=== PATIENT | male | born 1935 | race Caucasian/White ===

== ENCOUNTER 2017-12-19 20:04 | Inpatient (IN) | payer OTHER, MEDICAID ==
[~2017-12-19 20:04] MED LIST: DILTIAZEM 125 MG in D5W 125 ML IV SCH; INSULIN REGULAR HUMAN 100 UNIT in NS 100 ML IV SCH
[2017-12-19] MEDS ORDERED: NS 1,000 ML IV ONE ×5 (20:15→22:30)
--- NOTE | 2017-12-19 20:15 | EDPHY ---
H & P Time Seen by Provider: 12/19/17 20:14 HPI/ROS: Chief complaint. Altered mental status HPI. 82-year-old male here emergent by EMS. He was last seen normal 24 hr ago. Welfare check found the patient to be barely arousable in his apartment in assisted living. Monitor showed atrial fibrillation per EMS. When they checked his blood sugar there monitor showed it was greater than 400. There is a report that there was no medicine bottles around. Apparently there is no history of diabetes. Patient is not able to give any further history. ROS--unable as the patient is nonverbal Past Medical/Surgical History: Unknown Social History: Unknown though EMS report is the patient lives by himself in assisted living Smoking Status: Unknown if ever smoked Physical Exam: General Appearance: Arousable as the patient opens his eyes to verbal stimuli. Patient's initial temp is 34.7 degrees. Heart rate 103 Eyes: Pupils equal and round no pallor or injection. ENT, mucous membranes are dry Respiratory: There are no retractions, lungs are clear to auscultation. Cardiovascular: Irregularly irregular rate and rhythm Gastrointestinal: Abdomen is soft and nontender, no masses, bowel sounds normal. Neurological: Opens eyes to verbal stimuli. Appears to move all 4 extremities Skin: Skin is mottled Musculoskeletal: Neck is supple nontender. Extremities symmetrical, full range of motion. Psychiatric: Arousable Constitutional: Initial Vital Signs Temperature (C) 34.7 C L 12/19/17 20:09 Heart Rate 103 H 12/19/17 20:09 Respiratory Rate 33 H 12/19/17 20:09 Blood Pressure 156/80 H 12/19/17 20:09 O2 Sat (%) 96 12/19/17 20:09 O2 Delivery Mode Nasal Cannula O2 (L/minute) 4 Allergies/Adverse Reactions: Unable to Assess Allergy (Unverified 12/19/17 20:11) Home Medications: Medication Instructions Recorded Meclizine HCl 12/19/17 Zofran 12/19/17 Medical Decision Making - Diagnostics EKG Interpretation: EKG interpreted by me shows atrial fibrillation left axis deviation QRS appears normal. No obvious ST elevation or depression. Ventricular response is 121 Imaging Results: Imaging Impressions Chest X-Ray 12/19/17 20:15 Impression: No acute findings in the chest. Head CT 12/19/17 20:20 Impression: 1. No acute intracranial findings. 2. Diffuse cerebral atrophy with periventricular and subcortical low attenuation consistent with chronic microvascular ischemic gliosis. 3. Probable 2.5 cm arachnoid cyst over the vertex. Findings discussed with Davin Mendoza MD on December 19, 2017 at 2131 hours. Chest x-ray reviewed by me and interpreted by me shows no evidence for pneumonia Noncontrast head CT reviewed by me and discussed with Dr. Martin is nonacute Procedures: IV normal saline. 2nd IV is started is given 2 L of normal saline. I-STAT shows blood sugar greater than 700 Sepsis workup is performed Patient is given 4 L of saline in the department. Insulin drip. ED Course/Re-evaluation: Severe sepsis declared at about 8:50 p.m. Bear Hugger blanket to warm the patient back to normothermia 10:15 p.m. Patient has now rapid AFib in the range of 140-150. Diltiazem bolus and drip. I consulted and discussed case with Dr. Kwon, hospitalist, who agrees to the admission Differential Diagnosis: It appears the patient is in nonketotic hyperosmolar coma. However the patient is acidotic however I suspect that this is more from for circulation as well as this is the explanation for the elevated lactate. Concurrently there is no obvious evidence for infection in terms of pneumonia or urinary tract infection. Cultures are pending. No antibiotics were given because again at this point no source of infection. Patient has atrial fibrillation with rapid ventricular rate requiring Diltiazem for management. Patient's very hyperglycemic as well as having elevated oz mole allergy. We this requires treatment with IV insulin and IV fluids. Critical Care Time: Critical care time exclusive procedures 1 hr - Data Points Laboratory Results: Laboratory Results 12/19/17 20:12 12/19/17 20:12 12/19/17 12/19/17 12/19/17 20:25 20:12 20:12 WBC RBC Hgb POC Hgb Hct POC Hct MCV MCH MCHC RDW Plt Count MPV Neut % (Auto) Lymph % (Auto) [place] % (Auto) Eos % (Auto) Baso % (Auto) Nucleat RBC Rel Count Absolute Neuts (auto) Absolute Lymphs (auto) Absolute Monos (auto) Absolute Eos (auto) Absolute Basos (auto) Absolute Nucleated RBC Immature Gran % Immature Gran # PT INR APTT VBG pH 7.14 L* (7.31-7.42) VBG Lactic Acid 6.4 mmol/L H mmol/L (0.7-2.1) POC Sodium Sodium 152 mEq/L H mEq/L (135-145) POC Potassium Potassium 6.1 mEq/L H mEq/L (3.5-5.2) POC Chloride Chloride 102 mEq/L mEq/L (97-110) Carbon Dioxide 9 mEq/l L* mEq/l (22-31) Anion Gap 41 mEq/L H mEq/L (8-16) POC BUN BUN 101 mg/dL H* mg/dL (7-23) Creatinine 3.6 mg/dL H mg/dL (0.7-1.3) POC Creatinine Estimated GFR 16 Glucose 1023 mg/dL H* mg/dL (70-100) POC Glucose Serum Osmolality 429 mosmo/kg H mosmo/kg (280-297) Calcium 10.2 mg/dL mg/dL (8.5-10.4) Phosphorus 11.7 mg/dL H mg/dL (2.5-4.5) Magnesium 3.9 mg/dL H mg/dL (1.6-2.3) Total Bilirubin 1.4 mg/dL mg/dL (0.1-1.4) Troponin I 0.023 ng/mL ng/mL (0.000-0.034) Beta-Hydroxybutyrate 9.35 mmol/L H mmol/L (0.02-0.27) Urine Color YELLOW Urine Appearance CLEAR Urine pH 5.0 (5.0-7.5) Ur Specific [place] 1.021 (1.002-1.030) Urine Protein 1+ H (NEGATIVE) Urine Ketones TRACE H (NEGATIVE) Urine Blood 3+ H (NEGATIVE) Urine Nitrate NEGATIVE (NEGATIVE) Urine Bilirubin NEGATIVE (NEGATIVE) Urine Urobilinogen NEGATIVE EU EU (0.2-1.0) Ur Leukocyte Esterase NEGATIVE (NEGATIVE) Urine RBC 1-3 /hpf /hpf (0-3) Urine WBC 3-5 /hpf H /hpf (0-3) Ur Epithelial Cells TRACE /lpf /lpf (NONE-1+) Hyaline Casts 1-5 /lpf /lpf (0-1) Urine Mucus TRACE /lpf /lpf (NONE-1+) Urine Glucose 3+ H (NEGATIVE) 02/25/18 02/25/18 02/25/18 20:12 20:12 20:03 WBC 14.63 10^3/uL H 10^3/uL (3.80-9.50) RBC 6.30 10^6/uL 10^6/uL (4.40-6.38) Hgb 20.8 g/dL H* g/dL (13.7-17.5) POC Hgb 20.7 gm/dL H* gm/dL (13.7-17.5) Hct 62.4 % H* % (40.0-51.0) POC Hct 61 % H* % (40-51) MCV 99.0 fL fL (81.5-99.8) MCH 33.0 pg pg (27.9-34.1) MCHC 33.3 g/dL g/dL (32.4-36.7) RDW 14.0 % % (11.5-15.2) Plt Count 264 10^3/uL 10^3/uL (150-400) MPV 12.4 fL H fL (8.7-11.7) Neut % (Auto) 81.5 % H % (39.3-74.2) Lymph % (Auto) 6.8 % L % (15.0-45.0) [place] % (Auto) 10.7 % % (4.5-13.0) Eos % (Auto) 0.0 % L % (0.6-7.6) Baso % (Auto) 0.2 % L % (0.3-1.7) Nucleat RBC Rel Count 0.0 % % (0.0-0.2) Absolute Neuts (auto) 11.92 10^3/uL H 10^3/uL (1.70-6.50) Absolute Lymphs (auto) 1.00 10^3/uL 10^3/uL (1.00-3.00) Absolute Monos (auto) 1.56 10^3/uL H 10^3/uL (0.30-0.80) Absolute Eos (auto) 0.00 10^3/uL L 10^3/uL (0.03-0.40) Absolute Basos (auto) 0.03 10^3/uL 10^3/uL (0.02-0.10) Absolute Nucleated RBC 0.00 10^3/uL 10^3/uL (0-0.01) Immature Gran % 0.8 % % (0.0-1.1) Immature Gran # 0.12 10^3/uL H 10^3/uL (0.00-0.10) PT 14.8 SEC SEC (12.0-15.0) INR 1.14 (0.83-1.16) APTT 31.9 SEC SEC (23.0-38.0) VBG pH VBG Lactic Acid POC Sodium 150 mEq/L H mEq/L (135-145) Sodium POC Potassium 5.6 mEq/L H mEq/L (3.3-5.0) Potassium POC Chloride 114 mEq/L H mEq/L (97-110) Chloride Carbon Dioxide Anion Gap POC BUN 93 mg/dL H mg/dL (7-23) BUN Creatinine POC Creatinine 3.4 mg/dL H mg/dL (0.7-1.3) Estimated GFR Glucose POC Glucose > 700 mg/dL H* mg/dL (70-100) Serum Osmolality Calcium Phosphorus Magnesium Total Bilirubin Troponin I Beta-Hydroxybutyrate Urine Color Urine Appearance Urine pH Ur Specific [place] Urine Protein Urine Ketones Urine Blood Urine Nitrate Urine Bilirubin Urine Urobilinogen Ur Leukocyte Esterase Urine RBC Urine WBC Ur Epithelial Cells Hyaline Casts Urine Mucus Urine Glucose Medications Given: Insulin Human Regular 100 unit / Miscellaneous Medication 1 ea/ Sodium Chloride 101 mls @ 6 mls/hr IV EDNOW ONE Stop: 12/20/17 13:44 Last Admin: 12/19/17 21:11 Dose: 101 mls Sodium Chloride (Ns) 1,600 mls @ 266.6666 mls/hr 30 ml/kg infuse over 6 hr ( 1600 ml) IV EDNOW ONE PRN Reason: Protocol Stop: 12/20/17 02:54 Last Admin: 12/19/17 22:06 Dose: 1,600 mls Discontinued Medications Sodium Chloride (Ns) 1,000 mls @ 0 mls/hr IV EDNOW ONE; Wide Open PRN Reason: Protocol Stop: 12/19/17 20:16 Last Admin: 12/19/17 20:00 Dose: 1,000 mls Sodium Chloride (Ns) 1,000 mls @ 0 mls/hr IV ONCE ONE; Wide Open PRN Reason: Protocol Stop: 12/19/17 20:16 Last Admin: 12/19/17 20:28 Dose: 1,000 mls Sodium Chloride (Ns) 1,000 mls @ 0 mls/hr IV ONCE ONE PRN Reason: Wide Open Stop: 12/19/17 22:07 Last Admin: 12/19/17 22:06 Dose: 1,000 mls Lorazepam (Ativan Injection) 1 mg IVP EDNOW ONE Stop: 12/19/17 20:58 Last Admin: 12/19/17 21:08 Dose: 1 mg Point of Care Test Results: 12/19/17 20:03 POC Sodium 150 H POC Potassium 5.6 H POC Chloride 114 H POC BUN 93 H POC Creatinine 3.4 H POC Glucose > 700 H* Departure - Departure Disposition: [facility] [place] [facility] Acute Clinical Impression: Non-ketotic hyperosmolar coma Hypothermia Qualifiers: Encounter type: initial encounter Qualified Code(s): T68.XXXA - Hypothermia, initial encounter Atrial fibrillation Qualifiers: Atrial fibrillation type: unspecified Qualified Code(s): I48.91 - Unspecified atrial fibrillation Condition: Critical
--- NOTE | 2017-12-19 20:23 | CPEKG ---
Heart Rate: 121 RR Interval: 496 QRSD Interval: 106 QT Interval: 384 QTC Interval: 545 QRS [place]: 1 T Wave [place]: 60 EKG Severity - ABNORMAL ECG - EKG Impression: ATRIAL FIBRILLATION EKG Impression: MULTIFORM VENTRICULAR PREMATURE COMPLEXES EKG Impression: PROBABLE INFERIOR INFARCT, OLD EKG Impression: PROLONGED QT INTERVAL Electronically Signed By: Davin Mendoza 19-Dec-2017 23:28:48
[2017-12-19 20:25] LABS: PLATELET COUNT 264 10^3/uL (150-400)
[2017-12-19 20:35] LABS: INR 1.14 (0.83-1.16); PROTIME(PATIENT) 14.8 SEC (12.0-15.0)
[2017-12-19] MEDS ORDERED: INSULIN REGULAR HUMAN 100 UNIT, COSIGN. REQUIRED 1 EA in NS 100 ML IV ONE (20:55)
[2017-12-19] MEDS ORDERED: NS 1,600 ML IV ONE (20:55)
[2017-12-19] MEDS ORDERED: LORazepam 2 MG/ML INJ IVP ONE (20:57)
[2017-12-19] MEDS ORDERED: LORazepam 2 MG/ML INJ ONE (20:58)
[2017-12-19] MEDS ORDERED: DILTIAZEM 125 MG in D5W 125 ML IV ONE (22:17)
[2017-12-19] MEDS ORDERED: DILTIAZEM HCL/D5W 125 ML IV ONE (22:30)
--- NOTE | 2017-12-19 22:40 | CPEKG ---
Heart Rate: 116 RR Interval: 517 P-R Interval: 156 QRSD Interval: 76 QT Interval: 344 QTC Interval: 478 P [place]: -2 QRS [place]: -30 T Wave [place]: 38 EKG Severity - ABNORMAL ECG - EKG Impression: SINUS TACHYCARDIA EKG Impression: MULTIFORM VENTRICULAR PREMATURE COMPLEXES EKG Impression: PROBABLE INFERIOR INFARCT, OLD Electronically Signed By: Davin Mendoza 19-Dec-2017 23:28:42
[2017-12-19] MEDS ORDERED: ONDANSETRON 4 MG/2 ML VIAL IVP PRN (23:10)
[2017-12-19] MEDS ORDERED: D5W 1,000 ML IV SCH (23:15)
[2017-12-19] MEDS ORDERED: NS 1,000 ML IV SCH (23:15)
[2017-12-19] MEDS ORDERED: 1/2 NS 1,000 ML IV SCH (23:30)
--- NOTE | 2017-12-19 23:56 | PDGENHP ---
History and Physical - Chief Complaint altered mental status - History of Present Illness Source-patient currently encephalopathic and nonverbal. EMR was reviewed and case discussed with accepting provider. Patient resides at [facility] and no records accompany the patient. Calls to facility placed but no records available to be faxed either as patient is on [facility] facility side. . HPI - 82-year-old gentleman with unknown past medical history who presents emergency department from his independent [facility] apartment at [facility] after welfare check was called. Apparently patient had not been seen in 24 hr last being approximately dinnertime. Patient was found in his apartment confused. Per report no emptied or prescription bottles were in the home. Initial blood glucose on scene was greater than measurable on Accu-Chek. In the emergency department patient's glucose was found to be greater than 1000. He was given greater than 4 L of normal saline bolus. Patient has remained confused and agitated. History Information - Allergies/Home Medication List Allergies/Adverse Reactions: Unable to Assess Allergy (Unverified 12/19/17 20:11) Home Medications: Meclizine HCl 12/19/17 [Last Taken Unknown] Zofran 12/19/17 [Last Taken Unknown] I have personally reviewed and updated: social history Past Medical History: Unable to obtain secondary to patient's altered mental status. Attempts to call contacts - Surgical History Additional surgical history: Unable to obtain secondary to patient's mental status. No reports available from [facility]. - Family History Additional family history: Unable to obtain as noted above. - Social History Smoking Status: Unknown if ever smoked Additional social history: Unable to obtain as noted above. Patient without any available advance directives as it is not required at [facility]. Patient will be full code until this can be clarified. Patient's available contacts are all . Review of Systems Review of Systems: Unable to obtain as for reasons noted above. Physical Exam Physical Exam: Selected Entries 12/19/17 21:37 Blood Pressure Automatic Method Heart Rate 102 H Respiratory 32 H Rate O2 Sat (%) 94 Blood Pressure 113/68 Mean Arterial 83 Pressure (MAP) O2 Delivery Room Air Mode Temp Pulse Resp BP Pulse Ox 35.8 C L 113 H 32 H 139/66 H 93 12/19/17 22:58 12/19/17 22:58 12/19/17 22:58 12/19/17 22:58 12/19/17 22:58 O2 (L/minute) 4 Constitutional: no apparent distress, chronically ill appearing, cachectic, other (Patient lays in bed awake but unresponsive. Moans intermittently. Nonverbal. Chronically ill, thin cachectic, disheveled.), No appears nourished Eyes: PERRL Ears, Nose, Mouth, Throat: no oral mucosal ulcers, dry mucous membranes, other ( Edentulous) Cardiovascular: systolic murmur, pulses symmetric bilaterally, tachycardia ( Regular rhythm with occasional extra beat.), No edema Peripheral Pulses: 2+: dorsalis-pedis (R), dorsalis-pedis (L) Respiratory: no respiratory distress, no rales or rhonchi, clear to auscultation , reduced air movement (Decreased inspiratory effort. Patient unable to follow commands.), No expiratory wheeze, No respiratory distress Gastrointestinal: normoactive bowel sounds, soft, non-tender abdomen, no palpable masses, No tenderness (No apparent tenderness to palpation with exam.) , No guarding, No distension Genitourinary: patel in urethra (Clear yellow urine) Skin: warm, normal color, No no rashes or abrasions, No pressure ulcer, No rash Musculoskeletal: other (Patient moves all extremities while lying in bed. Strength 5/5 in his extremities. Patient unable to follow commands for testing. ) Neurologic: other ( limited exam 2/2 confusion and inability to follow commands) , No AAOx3, No weakness, No facial droop Psychiatric: encephalopathic, agitated (Patient resisting nursing staff assistance. Nonverbal.), No interacting appropriately Lymph, Heme, Immunologic: No petechiae Lab Data & Imaging Review 12/19/17 20:12 12/19/17 22:00 WBC 14.63 10^3/uL (3.80-9.50) H 12/19/17 20:12 RBC 6.30 10^6/uL (4.40-6.38) 12/19/17 20:12 Hgb 20.8 g/dL (13.7-17.5) H* 12/19/17 20:12 POC Hgb 17.0 gm/dL (13.7-17.5) 12/19/17 21:54 Hct 62.4 % (40.0-51.0) H* 12/19/17 20:12 POC Hct 50 % (40-51) 12/19/17 21:54 MCV 99.0 fL (81.5-99.8) 12/19/17 20:12 MCH 33.0 pg (27.9-34.1) 12/19/17 20:12 MCHC 33.3 g/dL (32.4-36.7) 12/19/17 20:12 RDW 14.0 % (11.5-15.2) 12/19/17 20:12 Plt Count 264 10^3/uL (150-400) 12/19/17 20:12 MPV 12.4 fL (8.7-11.7) H 12/19/17 20:12 Neut % (Auto) 81.5 % (39.3-74.2) H 12/19/17 20:12 Lymph % (Auto) 6.8 % (15.0-45.0) L 12/19/17 20:12 [place] % (Auto) 10.7 % (4.5-13.0) 12/19/17 20: Eos % (Auto) 0.0 % (0.6-7.6) L 12/19/17 20: Baso % (Auto) 0.2 % (0.3-1.7) L 12/19/17 20:12 Nucleat RBC Rel Count 0.0 % (0.0-0.2) 12/19/17 20:12 Absolute Neuts (auto) 11.92 10^3/uL (1.70-6.50) H 12/19/17 20:12 Absolute Lymphs (auto) 1.00 10^3/uL (1.00-3.00) 12/19/17 20:12 Absolute Monos (auto) 1.56 10^3/uL (0.30-0.80) H 12/19/17 20:12 Absolute Eos (auto) 0.00 10^3/uL (0.03-0.40) L 12/19/17 20:12 Absolute Basos (auto) 0.03 10^3/uL (0.02-0.10) 12/19/17 20: Absolute Nucleated RBC 0.00 10^3/uL (0-0.01) 02/25/18 20:12 Immature Gran % 0.8 % (0.0-1.1) 12/19/17 20:12 Immature Gran # 0.12 10^3/uL (0.00-0.10) H 12/19/17 20:12 PT 14.8 SEC (12.0-15.0) 12/19/17 20:12 INR 1.14 (0.83-1.16) 12/19/17 20:12 APTT 31.9 SEC (23.0-38.0) 12/19/17 20:12 VBG pH 7.14 (7.31-7.42) L* 12/19/17 20:12 VBG Lactic Acid 4.4 mmol/L (0.7-2.1) H 12/19/17 21:19 POC Sodium 153 mEq/L (135-145) H 12/19/17 21:54 Sodium 155 mEq/L (135-145) H 12/19/17 22:00 POC Potassium 5.3 mEq/L (3.3-5.0) H 12/19/17 21:54 Potassium 5.4 mEq/L (3.5-5.2) H 12/19/17 22:00 POC Chloride 117 mEq/L (97-110) H 12/19/17 21:54 Chloride 113 mEq/L (97-110) H D 12/19/17 22:00 Carbon Dioxide 12 mEq/l (22-31) L 12/19/17 22:00 Anion Gap 30 mEq/L (8-16) H 12/19/17 22:00 POC BUN 98 mg/dL (7-23) H 12/19/17 21:54 BUN 100 mg/dL (7-23) H 12/19/17 22:00 Creatinine 3.3 mg/dL (0.7-1.3) H 12/19/17 22:00 POC Creatinine 3.1 mg/dL (0.7-1.3) H 12/19/17 21:54 Estimated GFR 18 12/19/17 22:00 Glucose 859 mg/dL (70-100) H* 12/19/17 22:00 POC Glucose > 700 mg/dL (70-100) H* 12/19/17 21:54 Serum Osmolality 429 mosmo/kg (280-297) H 12/19/17 20:12 Calcium 8.3 mg/dL (8.5-10.4) L D 12/19/17 22:00 Phosphorus 11.7 mg/dL (2.5-4.5) H 12/19/17 20:12 Magnesium 3.9 mg/dL (1.6-2.3) H 12/19/17 20:12 Total Bilirubin 1.0 mg/dL (0.1-1.4) 12/19/17 22:00 Conjugated Bilirubin 0.9 mg/dL (0.0-0.5) H 12/19/17 22:00 Unconjugated Bilirubin 0.1 mg/dL (0.0-1.1) 12/19/17 22:00 AST 29 IU/L (17-59) 12/19/17 22:00 ALT 22 IU/L (21-72) 12/19/17 22:00 Alkaline Phosphatase 93 IU/L (38-126) 12/19/17 22:00 Troponin I 0.023 ng/mL (0.000-0.034) 12/19/17 20:12 Total Protein 6.7 g/dL (6.3-8.2) 12/19/17 22:00 Albumin 4.1 g/dL (3.5-5.0) 12/19/17 22:00 Beta-Hydroxybutyrate 9.35 mmol/L (0.02-0.27) H 12/19/17 20:12 Urine Color YELLOW 12/19/17 20:25 Urine Appearance CLEAR 12/19/17 20:25 Urine pH 5.0 (5.0-7.5) 12/19/17:25 Ur Specific [place] 1.021 (1.002-1.030) 12/19/17 20:25 Urine Protein 1+ (NEGATIVE) H 12/19/17 20:25 Urine Ketones TRACE (NEGATIVE) H 12/19/17 20: Urine Blood 3+ (NEGATIVE) H 12/19/17 20:25 Urine Nitrate NEGATIVE (NEGATIVE) 12/19/17 20: Urine Bilirubin NEGATIVE (NEGATIVE) 12/19/17 20: Urine Urobilinogen NEGATIVE EU (0.2-1.0) 12/19/17 20:25 Ur Leukocyte Esterase NEGATIVE (NEGATIVE) 12/19/17 20:25 Urine RBC 1-3 /hpf (0-3) 12/19/17 20:25 Urine WBC 3-5 /hpf (0-3) H 12/19/17 20:25 Ur Epithelial Cells TRACE /lpf (NONE-1+) 12/19/17 20:25 Hyaline Casts 1-5 /lpf (0-1) 12/19/17 20:25 Urine Mucus TRACE /lpf (NONE-1+) 12/19/17 20:25 Urine Glucose 3+ (NEGATIVE) H 12/19/17 20:25 Imaging Review: Portable Chest at 8 hours History: Chest Pain. Altered mental status. Comparison: None available. Findings: Lung volumes are low without focal consolidation, pneumothorax, or pleural effusion. Heart size is normal. Degenerative change is present in the spine and shoulders. Impression: No acute findings in the chest. CT Head Without Contrast History: AMS. Hyperglycemia. Comparison: None available. Technique: Axial unenhanced images were obtained from the vertex through the skull base. Dose reduction techniques were utilized. Findings: Focal CSF prominence just to the left of the falx in the vertex, measuring 2.5 x 1.5 cm ( series 9 image 101) could represent an arachnoid cyst. Mc-white differentiation is preserved. There is moderate diffuse cerebral atrophy with scattered periventricular and subcortical low attenuation, suggesting chronic microvascular ischemic gliosis. No intracranial hemorrhage is identified. There is no evidence of infarct. Atherosclerotic calcification is present in the distal internal carotid arteries. The skull and skull base are unremarkable. Mild mucous membrane thickening is present in the paranasal sinuses. The mastoid air cells are clear. Impression: 1. No acute intracranial findings. 2. Diffuse cerebral atrophy with periventricular and subcortical low attenuation consistent with chronic microvascular ischemic gliosis. 3. Probable 2.5 cm arachnoid cyst over the vertex. Findings discussed with Davin Mendoza MD on December 19, 2017 at 2131 hours. Visualized and Interpreted Chest x-ray results: Yes Visualized and Interpreted imaging results: Yes Visualized and Interpreted EKG results: Yes EKG additional interpertation: Initial EKG-showing AFib with RVR in the 120s, PVCs, Q-waves in the inferior leads with prolonged QTC. Repeat EKG showed sinus tachycardia in the 1 teens with PVCs and Q-waves in the inferior leads. QTC is 478. No acute ST elevations or depressions. Assessment & Plan Assessment: 82-year-old gentleman found confused at his independent living apartment with elevated blood sugars Hyperglycemia-HHS versus DKA. Patient's blood sugar initially was greater than 1000 however he has elevated serum ketones. Patient has been placed on the DKA protocol and has received aggressive IV fluid hydration of 4.5 L normal saline. Patient will continue on insulin drip. Serial BMPs, VBG, lactic acid. Labs are all down trending except for sodium. See discussion below. Acute encephalopathy - likely related to hyperglycemia versus metabolic acidosis versus azotemia versus less likely CVA. Despite aggressive IV fluid hydration and improvement in patient's glucose up to this point patient remains quite agitated and unresponsive to verbal cues. Patient with increasing agitation and requiring restraint with 2 point soft limb restraints and Precedex. Continuing with insulin and acidosis correction as noted. Attempts were made to contact patient's listed contacts however apparently they are . Case Management will be consulted to assist. Severe sepsis-patient qualifies with leukocytosis, tachycardia, elevated lactate , acute renal failure - chest x-ray, UA at this point are negative for evidence of acute infectious process. Blood cultures x2 are pending. Will hold off on any antibiotics at this time unless patient should develop fever or cultures returned positive. Lactic acidosis - downtrending after IV fluids continue with aggressive hydration as noted. Further evaluation for potential source most likely severe dehydration versus infectious process. Blood cultures are pending as noted above. Serial lactic acids. Hypernatremia - patient initially hypernatremic to 1 50. Status post 4.5 L a normal saline in the emergency department now with a sodium of 160. His fluids had initially been changed to half normal saline at 125 mLs/hour Patient has been making urine since receiving IV fluids. Urine studies have been added. Nephrology consulted and case discussed with . Recommends changed to D5W as patient is blood glucose is downtrending and on insulin drip at 1:25 a.m. MLS per hour as well. Will continue to monitor serial BMPs. Nephrology will see patient in the morning. Acute renal failure - most likely prerenal in setting of severe dehydration. Patient has not had any issues with hypotension since his arrival. His initial blood pressure however was low normal and has since increased since arrival to the unit after IV fluids. Repeat before and BMPs show improvement in renal function. Atrial fibrillation (Acute) - patient appears to be normal sinus rhythm status post IV fluids and initiation of glucose correction. Will repeat a EKG in the morning and obtain echocardiogram. Patient's previous history is unknown. PT INR within normal limits. Hypothermia (Acute) - resolved status post bear hugger. The sepsis eval as noted above. Patient has been able to maintain normalized temperature. Polycythemia - secondary to severe dehydration. Currently corrected on repeat laboratory studies. Continue IV fluids. Hyperkalemia - status post aggressive IV fluid hydration and now corrected. Patient does not need further treatment other than IV fluids. Hyperchloremia - status post 4 L normal saline. transitioned to D5 W. Serial BMPs. Microscopic hematuria - possibly related to traumatic Patel placement. Patient without any gross hematuria at this time. No previous records available for comparison. Consider renal imaging in the morning pending repeat renal function labs. Under weight-patient's current weight is 54.4 kg. He does appear slightly cachectic. Once patient's mentation improves any can safely have a diet will consult RD. FEN - IVF as noted above. electrolyte replacement if needed currently acceptable. Diet NPO. PPX - SCDs. lovenox. COR - FULL at this time. Despite attempts for staff to locate any advanced directives as patient was on the independent living side these are not required to be filed. Patient's listed contacts are thought to be . Dispo - patient admitted to ICU. He is critically ill requiring close monitoring. Patient has been admitted to inpatient status and anticipate greater than 2 midnight stay. Consult-nephrology. Case Management.
[2017-12-20] MEDS ORDERED: LORazepam 2 MG/ML INJ ONE (00:07)
[2017-12-20] MEDS ORDERED: LORazepam 2 MG/ML INJ IVP ONE (00:24)
[2017-12-20] MEDS ORDERED: D5W 1,000 ML IV SCH (01:00)
[2017-12-20] MEDS: DEXMEDETOMIDINE IN 0.9 % NACL 50 ML IV SCH ×4 (01:20→23:38)
[2017-12-20] MEDS: D5W 1,000 ML IV SCH ×3 (01:26→17:37)
[2017-12-20] MEDS ORDERED: DILTIAZEM HCL/D5W 125 ML IV SCH (01:30)
[2017-12-20] MEDS: LORazepam 2 MG/ML INJ IVP PRN ×5 (04:02→19:10)
--- NOTE | 2017-12-20 04:57 | GCON ---
[f rep st] CONSULTATION DATE OF CONSULTATION: 12/20/2017 REASON FOR CONSULTATION: Opinion regarding acute kidney injury and worsening hypernatremia. HISTORY OF PRESENT ILLNESS: The patient is an 82-year-old gentleman that not much is known about his past medical history. He resides in an independent living facility at [facility]. The patient had not been seen in 24 hours (since about supper the day prior). He was found in his apartment and was quite confused. They did a blood glucose check at the scene and that was not measurable. He was br ought to [facility] Emergency Department. His initial laboratories at 8 o'clock on 12/19/2017 showed a serum sodium of 152, potassium was 6.1, chloride 102, CO2 was 9, anion gap of 41, BUN 101, creatinine 3.6, glucose 1023, measured serum osmolality 429. By my calculation his serum osmolality was about 437. Calcium 10, phosphorus 11.7, magnesium 3.9, total bilirubin 1.4. Beta hydroxybutyrat e of 9.35. The patient was admitted to the intensive care unit, was initiated on normal saline and a n insulin infusion. 2 hours later, measured serum sodium was 155, potassium 5.4, chloride 113, CO2 w as 12, anion gap had decreased to 30, BUN was 100, creatinine decreased to 3.3, glucose had gone from 1023 down to 859, calcium was 8.3. By midnight, his serum sodium had increased to 160. By 1:40 a.m . up to 161 with a serum creatinine decreasing to 2.4, blood sugar 470. The patient is unable to his participate in an interview. ALLERGIES: Unknown. HOME MEDICATIONS: Include meclizine and Zofran. FAMILY HISTORY, SOCIAL HISTORY, REVIEW OF SYSTEMS: Unobtainable. He had 4.5 L in, about 900 cc of urine output. We had initially switched him from normal saline to D 5W, his serum sodium was increased increasing, however, we will be switching that back to normal sali ne. PHYSICAL EXAMINATION: VITAL SIGNS: Blood pressure 104/57, pulse 96, respirations 26, temperature 35 .8. GENERAL: He is obtunded and not responsive. HEENT: Pupils do respond to light. Mucous membra sergio are dry. NECK: No lymphadenopathy or JVD. HEART: Borderline tachycardic. No rub. LUNGS: No rales, rhonchi, or wheezes. ABDOMEN: Flat, scaphoid, nontender, nondistended. No obvious organome johnnie, masses, or bruits. EXTREMITIES: No edema, he does have changes of arterial insufficiency in h is lower extremities bilaterally. LYMPH: No palpable lymphadenopathy or lymphedema. MUSCULOSKELETA L: No effusions or tenderness. LABORATORY: Were reviewed as above. IMPRESSION: Hyperglycemia with hyperosmolality. Due to the hyperglycemia, the patient has had large free water excretion leading to profound volume depletion and dehydration. He has his initial serum sodium corrected for a glucose of 1030, corrects up to about 170. Over the course of the past sever al hours, as his blood sugar has come down and his serum sodium has come up, his serum osmolality has decreased, his corrected serum sodium has gone from 170 down to about 169. We need to be very caref ul with correcting his osmolality and serum sodiums too quickly leading to BEER COOLER fluid shifts. We are going to back off on his insulin drip a bit and try to maintain his serum glucose levels about where they are. We will be measuring serum osmolalities very frequently, will be checking serum sodium lev els frequently as well. We will try to not bring his serum sodium levels down by more than 8 in a 24 hour period, we also need to be cognizant of his serum osmolality and free water deficit. We will s witch him from D5W to normal saline, with his osmolality at around 400 even normal saline is hypotoni c with an osmolality of 308 per L. I have discussed this with the primary physician on the case. Al l questions were answered to everyone's satisfaction. We will continue to follow mehul boyd closely. Thank you for allowing me to participate in the care of your patient. If there is any questions, ple ase do not hesitate to contact us. We will be following along with you. /[id number]/MODL
[2017-12-20 05:47] LABS: PLATELET COUNT 158 10^3/uL (150-400)
[2017-12-20] MEDS: HEPARIN 5,000 UNIT/0.5 ML SYR SC SCH ×3 (06:04→22:05)
[2017-12-20 06:29] LABS: CREATINE KINASE 866 IU/L (0-224)
[2017-12-20 06:39] LABS: CREATINE KINASE 945 IU/L (0-224)
[2017-12-20] MEDS ORDERED: D50W 25 GM/50 ML SYR IVP PRN (08:39)
--- NOTE | 2017-12-20 09:05 | CPEKG ---
Heart Rate: 83 RR Interval: 723 P-R Interval: 148 QRSD Interval: 76 QT Interval: 392 QTC Interval: 461 P Coggon: 12 QRS Coggon: 12 T Wave Coggon: 82 EKG Severity - BORDERLINE ECG - EKG Impression: SINUS RHYTHM EKG Impression: BORDERLINE T WAVE ABNORMALITIES Electronically Signed By: Edson Breaux 20-Dec-2017 09:23:45
--- NOTE | 2017-12-20 09:17 | ASMTCMCOM ---
CM Note CM Note Notes: 82 yr old male found confused in his Independent Living apartment in [facility]. High blood sugars-greater than 1000, confused and agitated. [facility] looking for Advance Directives and contacts, so far none found. CM to follow. Date Signed: 12/20/2017 09:17 AM Electronically Signed By:Jeri Mclean LCSW
--- NOTE | 2017-12-20 09:57 | PDMN ---
Medical Necessity Medical necessity: est los>2mn for hyperglycemia, w/glucose>1000, HHS vs DKA, acute encephalopathy w/agitation, r/t hyperglycemia vs metabolic acidosis vs azotemia vs CVA, severe sepsis, and hypernatremia; admit to ICU, insulin gtt, IVF, requiring 2 point restraints; medical hx unknown; per order and H&P 12/19/17
--- NOTE | 2017-12-20 09:59 | PDMN ---
Medical Necessity Medical necessity: est los>2mn for hyperglycemia, HHS vs DKA, acute encephalopathy r/t hyperglycemia vs metabolic acidosis vs azotemia vs CVA, severe sepsis, and hypernatremia; admit to ICU, insulin gtt, IVF, requiring 2 point restraints; medical hx unknown; per order and H&P 12/19/17
--- NOTE | 2017-12-20 10:52 | ECHO ---
[email or web address] [address] [address] Main: [phone] Fax: Transthoracic Echocardiogram Name: LANE JUAREZ MR#: [id number] Study Date: 12/20/2017 Study Time: 08:06 AM Date of : 1935 Age: 82 year(s) Height: 177.8 cm (70 in.) Weight: 55.34 kg (122 lb.) BSA: 1.69 m2 Gender: Male Examination: Echo Indication: Atrial Fibrillation, Confusion Image Quality: Contrast: Requested by: Kym Rocha BP: 91 mmHg/51 mmHg Heart Rate: Rhythm: Atrial fibrillation Indication: Atrial Fibrillation, Confusion Procedure Staff Chalk Molding Machine Operator: Juanjo Ash RDCS Reading Physician: Steve Hamilton MD Requesting Provider: Conclusions: Normal size left ventricle. No LV hypertrophy. Normal global systolic LV function. EF is 58 %. No regional wall motion abnormality. Diastolic dysfunction is present. . Normal RV function. The mitral valve is normal in appearance and function. There is no mitral valve regurgitation. The aortic valve is tri-leaflet and functions normally. There is no aortic valve regurgitation. Trivial tricuspid valve regurgitation. The pulmonic valve is normal in appearance and function. Measurements: Chambers Valvular Assessment AV/MV Valvular Assessment TV/PV Normal Normal Normal Name Value Range Name Value Range Name Value Range Ao Aarti (MM): 3.0 cm (2.2 cm-3.7 AV Vmax: 1.40 m/s (1 m/s-1.7 PV Vmax: 0.98 m/s (0.6 m/s-0.9 cm) m/s) m/s) IVSd (2D): 0.9 cm (0.6 cm-1.1 AV maxP mmHg ( - ) PV PGmax: 4 mmHg ( - ) cm) LVOT Vmax: 0.82 m/s (0.7 m/s-1.1 LVDd (2D): 3.8 cm (4.2 cm-5.9 m/s) cm) MV E Vmax: 0.38 m/s ( - ) LVDs (2D): 2.7 cm (2.1 cm-4 MV A Vmax: 0.88 m/s ( - ) cm) MV E/A: 0.43 ( - ) LVPWd (2D): 0.9 cm (0.6 cm-1 cm) LVEF (2D): 58 (>=54 %) Patient: LANE JUAREZ Study Date: 12/20/2017 Page 1 of 2 08:06 AM Continued Measurements: Chambers Valvular Assessment AV/MV Name Value Name Value LADs Lon.4 cm MV E/E' Septal: 6.70 LA Area: 14.3 cm2 MV E/E' Lateral: 7.00 LA Volume: 38 ml LA Volume Index: 22.5 ml/m2 Findings: Left Ventricle: Normal size left ventricle. No LV hypertrophy. Normal global systolic LV function. EF is 58 %. No regional wall motion abnormality. Diastolic dysfunction is present. . Right Ventricle: Normal size right ventricle. Normal RV function. Left Atrium: The left atrium is normal in size. Right Atrium: The right atrium is normal in size. Mitral Valve: The mitral valve is normal in appearance and function. There is no mitral valve regurgitation. Aortic Valve: The aortic valve is tri-leaflet and functions normally. There is no aortic valve regurgitation. Tricuspid Valve: The tricuspid valve appears normal. Trivial tricuspid valve regurgitation. Pulmonic Valve: The pulmonic valve is normal in appearance and function. Aorta: The aorta is normal. Pericardium: No pericardial effusion. Exam Comments: The rhythm is atrial fibrillation.. (No Signature Object) Patient: LANE JUAREZ Study Date: 12/20/2017 Page 2 of 2 08:06 AM [id number]
--- NOTE | 2017-12-20 10:57 | SOAPPROG ---
SOAP Progress Note Assessment/Plan: Assessment: 1. Hypernatremia. Due to hyperglycemia/osmotic diuresis. Corrected Na on admission was ~170. Now with nl BS measured serum Na values are accurate. Was not improving on NS, switched back to D5W. Current Na 166. Goal Na ~162 by tonight. Decrease D5W to 100cc/hr. 2. EVELINA. Due to volume depletion. Improving with IVR. 3. IDDM with hyperosmolar coma/ketoacidosis. AG corrected. Creat back to 1.8. Good uop. On SQ insulin. Plan: 12/20/17 10:55 12/20/17 10:57 12/20/17 10:58 Subjective: Patient not verbalizing this am. Switched NS back to D5W earlier this am. Objective: Vital Signs Temp Pulse Resp BP Pulse Ox 37.1 C 86 26 H 132/67 H 96 12/20/17 08:31 12/20/17 10:30 12/20/17 10:30 12/20/17 10:30 12/20/17 10:30 Laboratory Results 12/20/17 05:31 12/20/17 10:07 12/19/17 12/20/17 12/21/17 05:59 05:59 05:59 Intake Total 5542 Output Total 1405 Balance 4137 PT 14.8 SEC (12.0-15.0) 12/19/17 20:12 INR 1.14 (0.83-1.16) 12/19/17 20:12 Agitated, confused, in ricardo and soft wrist restraints, elderly male IRIR, no m/g/r CTAB Abdom soft, nontender No edema Dilt gtt D5W at 125cc/hr ICD10 Worksheet Patient Problems: Problems Problem Status Onset Non-ketotic hyperosmolar coma Acute Hypothermia Acute Atrial fibrillation Acute
[2017-12-20] MEDS: INSULIN LISPRO 100 UNIT/ML SC SCH ×3 (12:18→23:42)
--- NOTE | 2017-12-20 16:07 | ASMTCMCOM ---
CM Note CM Note Notes: Shawn Villa called back to say that she had given me the wrong # for a "[employer]er [employer] Wedger" for the patient. This CM contacted Yeimi Oliva [phone] ; [phone] . Yeimi reports that patient has no living family and as far as she knew was his only living friend. She was happy to assist by being patient's Med Proxy. Yeimi lives in [facility]. This CM sent her a picture of the Med Proxy form and instructions, asked the ENVIRONMENTAL SERVICE AIDE to call her and gave her phone#'s to the Information Officer to call as needed. Date Signed: 12/20/2017 04:06 PM Electronically Signed By:Jeri Mclean LCSW
--- NOTE | 2017-12-20 18:10 | HOSPPROG ---
Hospitalist Progress Note Assessment/Plan: 82-year-old gentleman found confused at his independent living apartment with elevated blood sugars # severe hypernatremia- sodium near 170 at presentation- correcting slowly today - cont hypotonic fluids per nephrology - cont serial labs # severe Hyperglycemia-HHS versus DKA. BS > 1000 - unclear trigger at this time- ruling out potential causes - cont insulin drip. - Serial BMPs, VBG, lactic acid. #Acute encephalopathy - likely multifactorial with sodium near 170 and BS > 1000 - follow with aggressive supportive care # Severe sepsis-patient qualifies with leukocytosis, tachycardia, elevated lactate, acute renal failure - oxygen saturations 94% on 4L chest x-ray (personally reviewed and interpreted) without infiltrates. UA - negative Blood cultures x2 are pending. - agree with no empiric antibiotics #Lactic acidosis - downtrending after IV fluids continue with aggressive hydration #Acute kidney injury - most likely prerenal in setting of severe dehydration.- creatinine 3.4 -> 1.8 with fluids - cont hydration and monitoring # Atrial fibrillation (Acute) - Telemetry ( personally reviewed and interpreted ) normal sinus rhythm status post IV fluids and initiation of glucose correction. - follow # Hypothermia (Acute) - resolved status post bear hugger. Patient has been able to maintain normalized temperature. # Polycythemia - secondary to severe dehydration. Currently corrected on repeat laboratory studies. Continue IV fluids. # Hyperkalemia - status post aggressive IV fluid hydration and now corrected. Patient does not need further treatment other than IV fluids. # Microscopic hematuria - possibly related to traumatic Hi placement. Patient without any gross hematuria at this time. # severe protein calorie malnutrition -Under weight-patient's current weight is 54.4 kg. - dietary consult when alert #FEN - IVF as noted above. electrolyte replacement if needed currently acceptable. Diet NPO. #PPX - SCDs. lovenox. #COR - FULL at this time. Despite attempts for staff to locate any advanced directives as patient was on the independent living side these are not required to be filed. Patient's listed contacts are thought to be . Dispo - patient admitted to ICU. He is critically ill requiring close monitoring. Patient has been admitted to inpatient status and anticipate greater than 2 midnight stay. I have discussed the case with Dr. Alejandro will continue aggressive care plan Subjective: no events this am Objective: Vital Signs Temp Pulse Resp BP Pulse Ox 37.4 C 77 25 H 70/38 L 94 12/20/17 14:14 12/20/17 17:40 12/20/17 17:40 12/20/17 17:40 12/20/17 17:40 Laboratory Results 12/20/17 05:31 12/20/17 16:20 12/19/17 12/20/17 12/21/17 05:59 05:59 05:59 Intake Total 5542 1428 Output Total 1405 750 Balance 4137 678 PT 14.8 SEC (12.0-15.0) 12/19/17 20:12 INR 1.14 (0.83-1.16) 12/19/17 20:12 - Physical Exam Constitutional: cachectic Eyes: anicteric sclera Ears, Nose, Mouth, Throat: dry mucous membranes Cardiovascular: regular rate and rhythym, systolic murmur Respiratory: no respiratory distress Gastrointestinal: normoactive bowel sounds Genitourinary: no bladder fullness Skin: warm Musculoskeletal: No asymmetric calves Neurologic: No AAOx3 Psychiatric: No interacting appropriately Lymph, Heme, Immunologic: no cervical LAD ICD10 Worksheet Patient Problems: Problems Problem Status Onset Atrial fibrillation Acute Hypothermia Acute Non-ketotic hyperosmolar coma Acute
[2017-12-21] MEDS: HEPARIN 5,000 UNIT/0.5 ML SYR SC SCH ×3 (05:17→21:51)
[2017-12-21] MEDS: INSULIN LISPRO 100 UNIT/ML SC SCH ×4 (05:18→22:03)
[2017-12-21] MEDS: DEXMEDETOMIDINE IN 0.9 % NACL 50 ML IV SCH ×4 (05:45→21:20)
[2017-12-21] MEDS: 1/2 NS 1,000 ML IV SCH ×2 (10:02→14:57)
--- NOTE | 2017-12-21 12:53 | SOAPPROG ---
SOAP Progress Note Assessment/Plan: Assessment: EVELINA (non oliguric) creat better with improved volume and blood pressure hyperosmolality better overall hyperglycemia, treating, off D5W now and on hypotonic saline solution hypotension, BP 90-110 range hypernatremia, no significant improvement the past 12 hours or so acidosis due to EVELINA Plan: changed IVF, continue to follow Na every 4 hours continue supportive therapies no dialysis needs follow CO2 12/21/17 12:48 Objective: Vital Signs Temp Pulse Resp BP Pulse Ox 37.2 C 77 34 H 115/55 L 94 12/21/17 08:00 12/21/17 12:00 12/21/17 12:00 12/21/17 12:00 12/21/17 12:00 Laboratory Results 12/20/17 05:31 12/21/17 04:00 12/20/17 12/21/17 12/22/17 05:59 05:59 05:59 Intake Total 5542 2498 Output Total 1405 1375 325 Balance 4137 1123 -325 PT 14.8 SEC (12.0-15.0) 12/19/17 20:12 INR 1.14 (0.83-1.16) 12/19/17 20:12 Physical Exam - Physical Exam General Appearance: other (no response to his name) Respiratory: other (bilateral upperairway noises, no distinct rh or wh, moving about and moaning while I was trying to listen) Cardiac/Chest: regular rate, rhythm, No edema, No friction rub Abdomen: normal bowel sounds, non-tender, soft Skin: warm/dry Extremities: non-tender, No pedal edema Neuro/Psych: other (minimally arouseable, moaning) ICD10 Worksheet Patient Problems: Problems Problem Status Onset Atrial fibrillation Acute Hypothermia Acute Non-ketotic hyperosmolar coma Acute
--- NOTE | 2017-12-21 15:08 | HOSPPROG ---
Hospitalist Progress Note Assessment/Plan: 82-year-old gentleman found confused at his independent living apartment with elevated blood sugars # severe hypernatremia- sodium near 170 -> 162 this a.m. - cont hypotonic fluids per nephrology - cont serial Q4 labs # severe Hyperglycemia-HHS versus DKA. BS > 1000 - unclear trigger at this time- ruling out potential causes - transitioned from insulin drip to high-dose sliding scale Q 6 - Serial BMPs, VBG, lactic acid. #Acute encephalopathy - likely multifactorial with sodium near 170 and BS > 1000 - follow with aggressive supportive care # Severe sepsis-patient qualifies with leukocytosis, tachycardia, elevated lactate, acute renal failure - oxygen saturations 94% on 4L chest x-ray (personally reviewed and interpreted) without infiltrates. UA - negative Blood cultures x2 are pending. - agree with no empiric antibiotics #Lactic acidosis - continue with aggressive hydration #Acute kidney injury - most likely prerenal in setting of severe dehydration.- creatinine 3.4 -> 1.6 with fluids - cont hydration and monitoring # Atrial fibrillation (Acute) - Telemetry ( personally reviewed and interpreted ) normal sinus rhythm status post IV fluids and initiation of glucose correction. - follow # Hypothermia (Acute) - resolved status post bear hugger. Patient has been able to maintain normalized temperature. # Polycythemia - secondary to severe dehydration. Currently corrected on repeat laboratory studies. Continue IV fluids. # Hyperkalemia - status post aggressive IV fluid hydration and now corrected. Patient does not need further treatment other than IV fluids. # Microscopic hematuria - possibly related to traumatic Hi placement. Patient without any gross hematuria at this time. # severe protein calorie malnutrition -Under weight-patient's current weight is 54.4 kg. - dietary consult when alert #FEN - Diet NPO. #PPX - heparin subcu #COR - FULL at this time. Dispo - patient admitted to ICU. He is critically ill requiring close monitoring. Patient has been admitted to inpatient status and anticipate greater than 2 midnight stay. I have discussed the case with Dr. Alejandro will continue aggressive care plan and focus correction of patient's electronic abnormality Subjective: Requires Precedex secondary to agitation Objective: Vital Signs Temp Pulse Resp BP Pulse Ox 37.2 C 81 32 H 118/58 L 94 12/21/17 08:00 12/21/17 14:00 12/21/17 14:00 12/21/17 14:00 12/21/17 14:00 Laboratory Results 12/20/17 05:31 12/21/17 04:00 12/20/17 12/21/17 12/22/17 05:59 05:59 05:59 Intake Total 5542 2498 Output Total 1405 1375 325 Balance 4137 1123 -325 PT 14.8 SEC (12.0-15.0) 12/19/17 20:12 INR 1.14 (0.83-1.16) 12/19/17 20:12 - Physical Exam Constitutional: cachectic Eyes: anicteric sclera Ears, Nose, Mouth, Throat: dry mucous membranes Cardiovascular: regular rate and rhythym Respiratory: no respiratory distress Gastrointestinal: normoactive bowel sounds Genitourinary: no bladder fullness Skin: warm Musculoskeletal: No asymmetric calves Neurologic: No AAOx3 Psychiatric: No interacting appropriately, No agitated Lymph, Heme, Immunologic: no cervical LAD ICD10 Worksheet Patient Problems: Problems Problem Status Onset Atrial fibrillation Acute Hypothermia Acute Non-ketotic hyperosmolar coma Acute
--- NOTE | 2017-12-21 15:13 | ASMTCMCOM ---
CM Note CM Note Notes: Patient continues to be confused, labs unchanged, non verbal, at times contracted, restrained. Patient had [facility] assisting him at home. Patient has not been able to work with Therapies given his confusion. May need SNF on discharge. CM to follow. Date Signed: 12/21/2017 03:13 PM Electronically Signed By:Jeri Mclean LCSW
[2017-12-21] MEDS: D5W 1,000 ML IV SCH (18:26)
[2017-12-21] MEDS ORDERED: FUROSEMIDE 20 MG/2 ML VIAL IVP ONE (21:45)
[2017-12-22] MEDS: POTASSIUM Cl (KCl) 50 ML IV SCH ×2 (01:59→03:02)
[2017-12-22] MEDS: DEXMEDETOMIDINE IN 0.9 % NACL 50 ML IV SCH ×3 (03:02→21:20)
[2017-12-22] MEDS: ACETAMINOPHEN 650 MG SUPP PR PRN ×2 (03:31→21:08)
[2017-12-22 04:29] LABS: PLATELET COUNT 99 10^3/uL (150-400)
[2017-12-22] MEDS ORDERED: IPRATROPIUM/ALBUTEROL 3 ML DEYVIAL IH PRN (05:00)
[2017-12-22] MEDS ORDERED: IPRATROPIUM/ALBUTEROL 3 ML DEYVIAL ONE (05:00)
[2017-12-22] MEDS: D5W 1,000 ML IV SCH (06:31)
[2017-12-22] MEDS: INSULIN LISPRO 100 UNIT/ML SC SCH ×2 (06:31→18:43)
--- NOTE | 2017-12-22 08:07 | SOAPPROG ---
SOAP Progress Note Assessment/Plan: Assessment: EVELINA- non-oliguric -Cr peak mid 3, was improving to 1.3 yesterday with IVF, now up to 2.1 on last check likely due to lasix/hemodynamics (BP in 90s) -continue hypotonic fluids, evaluating for infectious causes as at risk for aspiration/secondary pna with influenza- low threshold to start pressors -would hold on further lasix today as suspect hypoxia more infectious #Hypernatremia -continues on d5W @ 100 cc/hr-- discussed with hospitalist and given agitation, doubt would tolerate DHT for po water at this point, thus will continue D5W and insulin gtt for now -recent labs a bit discordant as one was I-stat and one was lab value-- will recheck now and reassess. adjust fluids prn #Hypokalemia -lasix likely contributing as well as shifting from hyperglycemia -repleted K overnight, follow labs #DM with DKA -restarting insulin gtt #sepsis, encephalopathy-- febrile overnight -rapid flu positive -ongoing cultures as at risk for secondary infection-- defer antibiotics to hospitalist I discussed with Dr. Matteo Mendez MD [facility] [phone] pager 12/22/17 09:42 Subjective: More sob, confused overnight- on BIPAP, given dose lasix. KCL replaced 40meq IV. Continues on D5W @ 100 cc/hour. Rapid flu positive. Objective: Vital Signs Temp Pulse Resp BP Pulse Ox 38.8 C H 97 30 H 93/43 L 97 12/22/17 07:00 12/22/17 07:00 12/22/17 07:00 12/22/17 07:00 12/22/17 07:00 Laboratory Results 12/22/17 04:15 12/21/17 20:00 12/21/17 12/22/17 12/23/17 05:59 05:59 05:59 Intake Total 2498 3208 Output Total 1375 4375 Balance 1123 -1167 PT 14.8 SEC (12.0-15.0) 12/19/17 20:12 INR 1.14 (0.83-1.16) 12/19/17 20:12 Physical Exam - Physical Exam General Appearance: other (confused, restless, on BIPAP) Respiratory: other (coarse bs) Cardiac/Chest: regular rate, rhythm Abdomen: non-tender, soft Skin: warm/dry Extremities: other (no edema) Neuro/Psych: other (confused, agitated) ICD10 Worksheet Patient Problems: Problems Problem Status Onset Atrial fibrillation Acute Hypothermia Acute Non-ketotic hyperosmolar coma Acute
[2017-12-22] MEDS ORDERED: ALBUMIN 5% 500 ML BOTTLE IV ONE (09:18)
[2017-12-22] MEDS ORDERED: ALBUMIN 5% 500 ML IV ONE (09:22)
--- NOTE | 2017-12-22 12:17 | HOSPPROG ---
Hospitalist Progress Note Assessment/Plan: 82-year-old gentleman found confused at his independent living apartment with elevated blood sugars # acute hypoxic respiratory failure-patient with a dramatic decompensation overnight with now requiring 15 L oxygen supplementation Chest x-ray(personally reviewed and interpreted) without significant infiltrates consistent hypoventilation peribronchial inflammation - receive Lasix overnight - respiratory swab positive for influenza A - continue aggressive pulmonary support # influenza a presumed acute- will start Tamiflu if patient able to swallow # Severe sepsis w/ acute hypotension(leukocytosis, tachycardia, elevated lactate , acute renal failure ) - patient's blood pressures did improve this morning after discontinuation of Precedex Suspecting sepsis physiology - initiate aggressive IV fluid resuscitation with isotonic fluids - IV albumin bolusing - initiate pressor support if necessary # severe hypernatremia- sodium near 170 -> 150 this a.m. - cont hypotonic fluids per nephrology - cont serial Q4 labs # severe Hyperglycemia- HHS versus DKA. BS > 1000 - suspect trigger likely newly diagnosed influenza A - transitioning back insulin drip 2/2 hyperglycemia with dextrose containing IV fluids for hypernatremia #Acute encephalopathy - likely multifactorial with sodium near 170 and BS > 1000 - follow with aggressive supportive care #Acute kidney injury - most likely prerenal in setting of severe dehydration.- creatinine 3.4 -> 1.6 -> 2.2 - cont hydration and monitoring # Atrial fibrillation (Acute) - Telemetry ( personally reviewed and interpreted ) normal sinus rhythm status post IV fluids and initiation of glucose correction. - follow # severe protein calorie malnutrition -Under weight-patient's current weight is 54.4 kg. - dietary consult when alert #FEN - Diet NPO. #PPX - heparin subcu #COR - FULL at this time. Dispo - patient admitted to ICU. He is critically ill requiring close monitoring. Patient has been admitted to inpatient status and anticipate greater than 2 midnight stay. I have discussed the case with Dr. Alejandro continue aggressive pulmonary toilet and new IV fluid bolusing or hypotension Subjective: resp deterioration overnight Objective: Vital Signs Temp Pulse Resp BP Pulse Ox 37.1 C 77 28 H 75/38 L 97 12/22/17 11:00 12/22/17 11:00 12/22/17 11:00 12/22/17 11:00 12/22/17 11:00 Microbiology 12/22/17 06:20 Respiratory Panel (PCR) - Final Nasal, Sinus - Swab Influenza Virus Type A H3 Laboratory Results 12/22/17 04:15 12/22/17 10:40 12/21/17 12/22/17 12/23/17 05:59 05:59 05:59 Intake Total 2498 3208 Output Total 1375 4375 140 Balance 1123 -1167 -140 PT 14.8 SEC (12.0-15.0) 12/19/17 20:12 INR 1.14 (0.83-1.16) 12/19/17 20:12 - Physical Exam Constitutional: cachectic Eyes: anicteric sclera Ears, Nose, Mouth, Throat: dry mucous membranes Cardiovascular: regular rate and rhythym Respiratory: respiratory distress, rhonchi, No expiratory wheeze Gastrointestinal: normoactive bowel sounds Genitourinary: no bladder fullness Skin: No rash Musculoskeletal: No asymmetric calves Neurologic: No AAOx3 Psychiatric: agitated Lymph, Heme, Immunologic: no cervical LAD ICD10 Worksheet Patient Problems: Problems Problem Status Onset Atrial fibrillation Acute Hypothermia Acute Non-ketotic hyperosmolar coma Acute
[2017-12-22] MEDS: INSULIN REGULAR HUMAN 100 UNIT in NS 100 ML IV SCH (12:24)
[2017-12-22] MEDS ORDERED: NS 1,000 ML IV ONE ×2 (12:49→13:28)
--- NOTE | 2017-12-22 13:18 | ASMTCMCOM ---
CM Note CM Note Notes: Spoke with Marylou at [facility] - patient is currently open with PT/OT/RN/SENIOR C SOFTWARE DEVELOPER services. They will need orders to resume care. Patient remains very ill with electrolyte imbalances, increased respiratory needs, and a positive Influenza A test. He has not been out of bed. We will order therapies when appropriate. Date Signed: 12/22/2017 01:18 PM Electronically Signed By:Giuliana Flores RN
[2017-12-22] MEDS ORDERED: NOREPINEPHRINE/NS 500 ML IV SCH (14:00)
--- NOTE | 2017-12-22 14:42 | WOCRNPDOC ---
JENNIFER Advanced Assessment Note - Skin Integrity Problem, Advanced Assess Forehead Pressure Injury Dressing Type: Open to Air Integumentary Issue Intervention: Dressing Applied Site Measurement - Head-to-Toe Length X Width X Depth (cm): 1.3x2x0 (x2) areas Pressure Injury Stage: Stage 1, Radial Router Operator Related Pressure Injury (bipap mask) Pressure Injury Present on Admit: No Skin Integrity Problem Comment: Wound RN consulted to assist with pressure injury prevention from BIPAP mask. Patient been on Bipap for 7+ hours. Mepilex 6x6 cut into 1/4 and placed under mask pressure area on forehead. Several other pieces of mepilex border were cut and labeled for each area for further use. Nose Pressure Injury Dressing Type: Allevyn Life Dressing Description: Clean/Dry, Intact Integumentary Issue Intervention: Dressing Changed Abimbola Wound Tissue: Blanching, Erythema Site Measurement - Head-to-Toe Length X Width X Depth (cm): 2x4x0 Pressure Injury Stage: Stage 1, Radial Router Operator Related Pressure Injury Pressure Injury Present on Admit: No Skin Integrity Problem Comment: Mepilex border sacrum cut to fit; coccyx area used for nose, sacral area used for chin/lower lip. Lower Lip Pressure Injury Dressing Type: Allevyn Life Dressing Description: Clean/Dry, Intact Integumentary Issue Intervention: Dressing Changed Site Measurement - Head-to-Toe Length X Width X Depth (cm): 2x3x0 Pressure Injury Stage: Stage 1, Radial Router Operator Related Pressure Injury Pressure Injury Present on Admit: No Skin Integrity Problem Comment: Mepilex sacrum border cut to fit: sacrum portion for lower lip/chin, coccyx portion for nose.
[2017-12-22] MEDS: OSELTAMIVIR 6 MG/ML UDSYR PO SCH (14:47)
--- NOTE | 2017-12-22 16:46 | GCON ---
[f rep st] CONSULTATION PULMONARY/CRITICAL CARE CONSULTATION DATE OF CONSULTATION: 12/22/2017 REFERRING PHYSICIAN: Wenyd Felipe MD REASON FOR REFERRAL: Evaluation and management of hypoxemia and hypotension. HISTORY: The patient is an 82-year-old gentleman who apparently lives at independent living and does not usually have close contact with others. He apparently had not been seen in at least 24 hours. A welfare check was done and he was found confused in his apartment. He was brought to the emergency de partment, where he was found to have a blood sugar of over 1000 and a sodium level of 152. His actual sodium was probably closer to 170, when correcting for his glucose. He has remained confused since h ospitalization. He has been seen by Nephrology who has been treating his hypernatremia, which peaked at 167 on the morning after admission. His hyperglycemia is also being treated with insulin and D5. H is sodium was steadily correcting and his blood sugars were coming under control, although he remaine d confused. Last night he developed marked increase in his oxygen needs. His I's and O's were positiv e, and a dose of Lasix was given. Subsequently, he developed hypotension and an influenza swab was po sitive. Today, he has been given 1.5 L of additional fluid boluses and has been placed on BiPAP due t o hypoxemia and increased respiratory effort. He remained confused. PAST MEDICAL HISTORY: None. MEDICATIONS: At time of admission apparently include Zofran, meclizine, Remeron, Zestril, and Zocor. ALLERGIES: None. SOCIAL HISTORY: The patient lives independently at [facility]. It is unknown if he has ever smoked. He has no known history of excessive alcohol intake. FAMILY HISTORY: Unobtainable. REVIEW OF SYSTEMS: Unobtainable. PHYSICAL EXAMINATION: GENERAL: The patient is somnolent but arousable and remains confused and somew hat agitated. VITAL SIGNS: Blood pressure is 91/48, and the heart rate is 80. His temperature was 39. 6 last night, but he is currently afebrile. Oxygen saturations are 97% on 80% oxygen via BiPAP. HEENT : Normocephalic and atraumatic. No icterus. NECK: No JVD. Trachea is midline. CHEST: He has some rale s bilaterally. CARDIAC: Regular rate and rhythm without murmur. ABDOMEN: Soft, nontender. Bowel sound s are present. EXTREMITIES: No clubbing, cyanosis, or edema. NEURO: The patient is somnolent but arou sable and is somewhat agitated/combative. He moves all 4 extremities. LABORATORY: Sodium is 153, chloride is 119, potassium is 3.9. A creatinine is 1.9, down from 3.6 at admission, but up from 1.3 yesterday. Glucose is 385, calcium is 7.6, a hemoglobin is 12.6, a white b lood count is 5.4. Arterial blood gas shows a pH of 7.48, with a pO2 of 79, CO2 of 22, and a bicarbon ate of 17, on BiPAP with 100% oxygen. Lactate was 3.2 on December 20. IMAGING: A chest x-ray shows some basilar atelectasis/infiltrates. Images reviewed by me. ASSESSMENT: 1. Hyperglycemia. The patient has no known prior history of diabetes. His blood sugar was 1000 when he came in and he had ketoacidosis with an elevated beta hydroxybutyrate. His blood sugars have impro eleazar, but have increased a bit over the last 24 hours. His anion gap has normalized. He is on an insul in drip. 2. Hypernatremia. This is likely due to dehydration. His sodium is correcting steadily and is being closely followed by Nephrology. 3. Influenza pneumonia. This may have contributed to his initial presentation. It also could be cont ributing to his worsening respiratory status with hypoxemia. 4. Hypertension. This has worsened overnight. He could be developing acute respiratory distress synd luis, systemic inflammatory response syndrome or sepsis-like syndrome related to influenza. His blood pressure and urine output have responded to IV fluids. RECOMMENDATIONS: 1. Continue with boluses of IV fluids as needed. Currently, the NICOM monitor shows that he is not f luid responsive. Pressors will be started if he is no longer responding to fluids, but remains hypote nsive. 2. Start Tamiflu. 3. Continue hypotonic fluids cautiously to gradually reduce his sodium level. 4. Continue insulin drip. /[id number]/MODL
[2017-12-22] MEDS ORDERED: OSELTAMIVIR PHOSPHATE 75 MG CAP PO SCH (18:00)
[2017-12-22] MEDS ORDERED: POTASSIUM Cl (KCl) 100 ML IV ONE (18:00)
[2017-12-22] MEDS: LORazepam 2 MG/ML INJ IVP PRN (20:57)
[2017-12-22] MEDS: NOREPINEPHRINE BITARTRATE 4 MG in D5W 500 ML IV SCH (20:57)
--- NOTE | 2017-12-22 22:59 | HOSPPROG ---
Hospitalist Progress Note Assessment/Plan: 33 min of critical care time spent with patient, at bedside, coordinating care with nurse, addressing the following issues: -contacted for hypoglycemia and hypotension, went to evaluate patient at bedside -physical exam demonstrates no expiratory wheezes, poor inspiratory air movement with tachypnea on BiPAP, alert awake oriented times 0, patient is not directable and does not follow commands, heart rhythm is regular, he is not tachycardic, does not demonstrate lower extremity edema -patient's systolic blood pressure was 87 with a CVP of 7, and elevated lactic acid level and no demonstrable fluid responsiveness on NICOM -the patient most likely has septic shock evidenced by end-organ failure ( respiratory failure, renal failure, lactic acidosis, encephalopathy, and hypotension) 2/2 influenza, and he should be initiated on pressors -Levophed was initiated with good response, resultant lactic acid level down trended 2.3 -Echo results reviewed, demonstrated preserved EF -glucose level was around 60, insulin drip which is being used for hyperglycemia was discontinued, and patient was continued on D5W at 25 cc an hour per Renal instructions -potassium was 3.4, Cr 1.6, and 20mEq of IV potassium was administered, BMP was rechecked and potassium improved to 3.7, creatinine improved to 1.4 after stabilizing blood pressure -chest x-ray was reviewed which did demonstrate left lower lobe infiltrate but no evidence of florid CHF or diffuse airspace disease -patient notably has positive influenza but is unable to take Tamiflu secondary to his inability to engage in safe swallow, does not have OG tube -the patient has not been evaluated for possible venous thromboembolism, D- dimer will be sent, and if markedly elevated, I have discussed with Dr. Rocha and she will consider CTA, given that it is unclear what patient's respiratory status is so poor and has continued to decline despite his viral pneumonia being fairly mild on chest x-ray, and him not demonstrating any evidence of reactive airway disease Patient remains critically ill with high risk of worsening morbidity and/or mortality secondary to septic shock and respiratory failure as outlined above. Objective: Vital Signs Temp Pulse Resp BP Pulse Ox 38.3 C 88 25 H 106/51 L 94 12/22/17 22:00 12/22/17 22:00 12/22/17 22:00 12/22/17 22:00 12/22/17 22:00 Microbiology 12/22/17 06:20 Respiratory Panel (PCR) - Final Nasal, Sinus - Swab Influenza Virus Type A H3 Laboratory Results 12/22/17 04:15 12/22/17 21:26 12/21/17 12/22/17 12/23/17 05:59 05:59 05:59 Intake Total 2498 3208 1475 Output Total 1375 4375 740 Balance 1123 -1167 735 PT 14.8 SEC (12.0-15.0) 12/19/17 20:12 INR 1.14 (0.83-1.16) 12/19/17 20:12 ICD10 Worksheet Patient Problems: Problems Problem Status Onset Atrial fibrillation Acute Hypothermia Acute Non-ketotic hyperosmolar coma Acute
[2017-12-22] MEDS: FAMOTIDINE 20 MG/NACL 50 ML IV SCH (23:00)
[2017-12-23] MEDS: DEXMEDETOMIDINE IN 0.9 % NACL 50 ML IV SCH ×5 (01:39→22:16)
[2017-12-23] MEDS: D5W 1,000 ML IV SCH ×3 (06:37→21:17)
--- NOTE | 2017-12-23 10:03 | SOAPPROG ---
SOAP Progress Note Assessment/Plan: Assessment/Plan: EVELINA: nonoliguric, Cr down from 3.6 to 1.3, although still having some fluctuations that are likely hemodynamic in nature. - No need for HD. - Will continue to monitor. - Avoid hypotension and nephrotoxins. Hypernatremia: Na back up to 161 this am. - D5W increased to 75 ml/hr. - Will continue to monitor q6h and adjust free water as needed. Shock: pt remains on Levophed. Subjective: No acute events overnight. Pt remain on BiPAP and Levophed. Objective: Vital Signs Temp Pulse Resp BP Pulse Ox 38 C 78 25 H 116/53 L 96 12/23/17 08:00 12/23/17 08:00 12/23/17 08:00 12/23/17 08:00 12/23/17 08:00 Microbiology 12/22/17 06:20 Respiratory Panel (PCR) - Final Nasal, Sinus - Swab Influenza Virus Type A H3 Laboratory Results 12/22/17 04:15 12/22/17 12/23/17 12/24/17 05:59 05:59 05:59 Intake Total 3208 2136 Output Total 4375 1740 Balance -1167 396 PT 14.8 SEC (12.0-15.0) 12/19/17 20:12 INR 1.14 (0.83-1.16) 12/19/17 20:12 General: sedated, no acute distress Eyes: sclerae nonicteric OP: clear CV: RRR Resp: on BiPAP Abd: Soft, NT/ND Ext: no edema BLE ICD10 Worksheet Patient Problems: Problems Problem Status Onset Atrial fibrillation Acute Hypothermia Acute Non-ketotic hyperosmolar coma Acute
[2017-12-23] MEDS ORDERED: PROTOCOL POTASSIUM 1 DOSE MISC PRN (10:23)
--- NOTE | 2017-12-23 11:12 | PDINTPN ---
Impregnator Progress Note Assessment/Plan: Assessment: Hypernatremia: Improving steadily, now 155. On D5, followed by Nephrology. Hyperglycemia: Improved, not normalized. On insulin gtt. Influenza: Likely contributes to hypoxemia, delirium Elevated d-dimer: At risk for PE, which could explain his hypoxemia/hypotension , although there are several other possible explanations. CTA poses a bit of risk for EVELINA given recently elevated Cr. Hypoxemic respiratory failure: Multifactorial, with fluid shifts, Influenza, atelectasis, possible aspiration. On BiPAP, getting pressures sores from mask. Hemodynamics: Hypotension improved, on low-dose NE. HR down today. Plan: Change to Vapotherm. US BLEs to look for DVT. If negative, consider CTA in the next day or two if Cr remains OK. Increase Tamiflu dose for improved renal function. Wean sedation and pressors as tolerated. 12/23/17 11:16 12/23/17 11:19 Subjective: Agitated, unresponsive Objective: Vital Signs Temp Pulse Resp BP Pulse Ox 38.2 C 79 23 H 119/54 L 97 12/23/17 10:00 12/23/17 10:00 12/23/17 10:00 12/23/17 10:00 12/23/17 10:00 Microbiology 12/22/17 06:20 Respiratory Panel (PCR) - Final Nasal, Sinus - Swab Influenza Virus Type A H3 Laboratory Results 12/22/17 04:15 12/23/17 09:24 12/22/17 12/23/17 12/24/17 05:59 05:59 05:59 Intake Total 3208 2136 Output Total 4375 1740 Balance -1167 396 PT 14.8 SEC (12.0-15.0) 12/19/17 20:12 INR 1.14 (0.83-1.16) 12/19/17 20:12 Laboratory Tests 12/22/17 23:12 D-Dimer 3.22 H Physical Exam - Physical Exam General Appearance: alert, no apparent distress EENT: normal ENT inspection Neck: normal inspection Respiratory: lungs clear, normal breath sounds Cardiac/Chest: regular rate, rhythm, No edema Abdomen: normal bowel sounds, non-tender, soft Skin: normal color, warm/dry Extremities: normal inspection Neuro/Psych: disoriented to person, disoriented to place, disoriented to time, No alert, No motor weakness ICD10 Worksheet Patient Problems: Problems Problem Status Onset Atrial fibrillation Acute Hypothermia Acute Non-ketotic hyperosmolar coma Acute
[2017-12-23] MEDS: INSULIN REGULAR HUMAN 100 UNIT in NS 100 ML IV SCH (11:28)
[2017-12-23] MEDS: POTASSIUM Cl (KCl) 50 ML IV SCH ×2 (12:07→13:13)
[2017-12-23] MEDS: OSELTAMIVIR 6 MG/ML UDSYR PO SCH ×2 (12:10→20:09)
[2017-12-23] MEDS: ACETAMINOPHEN 650 MG SUPP PR PRN ×2 (13:39→23:21)
--- NOTE | 2017-12-23 14:17 | ASMTCMCOM ---
CM Note CM Note Notes: Patient is improving slowly. Increase tamiflu dose today for renal function. Patient's family has remained steadily at his bedside. D/C plan remains [facility] for PT/OT/RN/US ADMINISTRATIVE LAW JUDGE. CM will follow. Date Signed: 12/23/2017 02:16 PM Electronically Signed By:Gardenia Blum LCSW
[2017-12-23] MEDS ORDERED: INSULIN LISPRO 100 UNIT/ML SC SCH (18:00)
[2017-12-23] MEDS: INSULIN LISPRO 100 UNIT/ML SC SCH ×2 (18:41→23:18)
--- NOTE | 2017-12-23 19:13 | HOSPPROG ---
Hospitalist Progress Note Assessment/Plan: 82-year-old gentleman found confused at his independent living apartment with elevated blood sugars # acute hypoxic respiratory failure-patient with a dramatic decompensation now requiring BiPAP Chest x-ray(personally reviewed and interpreted) without significant infiltrates consistent hypoventilation peribronchial inflammation - patient started on BiPAP overnight - respiratory swab positive for influenza A - continue aggressive pulmonary support- will transition to vapotherm 2/2 skin breakdown # influenza a presumed acute- will start Tamiflu if patient able to swallow # Severe sepsis w/ acute hypotension( leukocytosis, tachycardia, elevated lactate, acute renal failure ) - bcx NGTD x 2 sets Suspecting sepsis physiology- started on pressors after fluid bolusing - cont pressor support - cont IVF # severe hypernatremia- sodium near 170 -> 155 this a.m. - cont hypotonic fluids per nephrology - cont serial Q4 labs # severe Hyperglycemia- HHS versus DKA. BS > 1000 - suspect trigger likely newly diagnosed influenza A - transitioning back insulin SSI 2/2 hypoglycemia #Acute encephalopathy - likely multifactorial with sodium near 170 and BS > 1000 - follow with aggressive supportive care - if persists consider brain imaging #Acute kidney injury - most likely prerenal in setting of severe dehydration.- creatinine 3.4 -> 2.2 -> 1.2 - cont hydration and monitoring # Atrial fibrillation (Acute) - Telemetry ( personally reviewed and interpreted ) normal sinus rhythm status post IV fluids and initiation of glucose correction. - follow # severe protein calorie malnutrition -Under weight-patient's current weight is 54.4 kg. - dietary consult when alert - consider TF #FEN - Diet NPO. #PPX - heparin subcu #COR - FULL at this time. Dispo - patient admitted to ICU. He is critically ill requiring close monitoring. Patient has been admitted to inpatient status and anticipate greater than 2 midnight stay. I have discussed the case with Dr. Alejandro will not pursue CTA today...cont to monitor Subjective: remains critical Objective: Vital Signs Temp Pulse Resp BP Pulse Ox 38.2 C 81 25 H 100/55 L 92 12/23/17 18:00 12/23/17 18:00 12/23/17 18:00 12/23/17 18:00 12/23/17 18:00 Laboratory Results 12/22/17 04:15 12/23/17 18:20 12/22/17 12/23/17 12/24/17 05:59 05:59 05:59 Intake Total 3208 2136 1253 Output Total 4375 1740 1160 Balance -1167 396 93 PT 14.8 SEC (12.0-15.0) 12/19/17 20:12 INR 1.14 (0.83-1.16) 12/19/17 20:12 - Physical Exam Constitutional: chronically ill appearing Eyes: anicteric sclera Ears, Nose, Mouth, Throat: dry mucous membranes Cardiovascular: regular rate and rhythym Respiratory: rhonchi Gastrointestinal: normoactive bowel sounds Genitourinary: no bladder fullness Skin: warm Musculoskeletal: No asymmetric calves Neurologic: No AAOx3 Psychiatric: agitated Lymph, Heme, Immunologic: no cervical LAD ICD10 Worksheet Patient Problems: Problems Problem Status Onset Atrial fibrillation Acute Hypothermia Acute Non-ketotic hyperosmolar coma Acute
[2017-12-23] MEDS: NOREPINEPHRINE BITARTRATE 4 MG in D5W 500 ML IV SCH (21:17)
[2017-12-23] MEDS: FAMOTIDINE 20 MG/NACL 50 ML IV SCH (21:17)
[2017-12-23] MEDS: LORazepam 2 MG/ML INJ IVP PRN (21:59)
[2017-12-24] MEDS: POTASSIUM Cl (KCl) 10 MEQ in NS 100 ML IV SCH ×3 (00:33→02:02)
[2017-12-24] MEDS: INSULIN LISPRO 100 UNIT/ML SC SCH ×4 (05:22→20:10)
[2017-12-24] MEDS: D5W 1,000 ML IV SCH (08:27)
[2017-12-24] MEDS: ACETAMINOPHEN 650 MG SUPP PR PRN (10:58)
[2017-12-24] MEDS: INSULIN GLARGINE 100 UNITS/ML UNIT SC SCH (11:41)
--- NOTE | 2017-12-24 13:05 | HOSPPROG ---
Hospitalist Progress Note Assessment/Plan: 82-year-old gentleman found confused at his independent living apartment with elevated blood sugars # acute hypoxic respiratory failure-improvement overnight from BiPAP to 6L oxy mask this am - inluenza A positive Chest x-ray (personally reviewed and interpreted) without significant infiltrates - hypoventilation peribronchial inflammation - starting tamiflu per tube - continue aggressive pulmonary support # influenza a presumed acute- will start Tamiflu per tube today # Severe sepsis w/ acute hypotension (leukocytosis, tachycardia, elevated lactate, acute renal failure ) - bcx NGTD x 2 sets weaned off pressors - cont maintenance IVF # acute thrombocytopenia - platelets 274-> 73 this am - has received lovenox during his stay- DIC of course also possible - hold heparin - DIC panel - add differential to am labs # severe hypernatremia- sodium near 170 -> 149 this a.m. - cont hypotonic fluids per nephrology - cont serial labs # severe Hyperglycemia- HHS versus DKA. BS > 1000 - has fluctuating sugars since admit - cont SSI - adding lantus today #Acute encephalopathy - likely multifactorial with sodium near 170 and BS > 1000 - follow with aggressive supportive care - if persists consider brain imaging #Acute kidney injury - most likely prerenal in setting of severe dehydration.- creatinine 3.4 -> 1.1 - cont hydration and monitoring # Atrial fibrillation (Acute) - resolved and has not recurred # severe protein calorie malnutrition -Under weight-patient's current weight is 54.4 kg. - starting TF's #FEN - Diet NPO. #PPX - hold heparin subcu- platelets 73 - scd's #COR - FULL at this time. Dispo - patient admitted to ICU. He is critically ill requiring close monitoring. Patient has been admitted to inpatient status and anticipate greater than 2 midnight stay. I have discussed the case with Dr. Alejandro will place feeding tube today for nutrition Subjective: no events overnight Objective: Vital Signs Temp Pulse Resp BP Pulse Ox 38.6 C H 80 34 H 127/64 H 96 12/24/17 11:00 12/24/17 11:00 12/24/17 11:00 12/24/17 11:00 12/24/17 11:00 Laboratory Results 12/24/17 04:30 12/24/17 10:30 12/23/17 12/24/17 12/25/17 05:59 05:59 05:59 Intake Total 2136 2806.7 Output Total 1740 1960 Balance 396 846.7 PT 14.8 SEC (12.0-15.0) 12/19/17 20:12 INR 1.14 (0.83-1.16) 12/19/17 20:12 - Physical Exam Constitutional: chronically ill appearing Eyes: anicteric sclera Ears, Nose, Mouth, Throat: dry mucous membranes Cardiovascular: regular rate and rhythym Respiratory: rhonchi Gastrointestinal: normoactive bowel sounds Genitourinary: no bladder fullness Skin: warm Musculoskeletal: No asymmetric calves Neurologic: No AAOx3 Psychiatric: No agitated Lymph, Heme, Immunologic: no cervical LAD ICD10 Worksheet Patient Problems: Problems Problem Status Onset Atrial fibrillation Acute Hypothermia Acute Non-ketotic hyperosmolar coma Acute
[2017-12-24] MEDS: DEXMEDETOMIDINE HCL 400 MCG in NS 100 ML IV SCH ×2 (13:08→21:07)
--- NOTE | 2017-12-24 13:11 | PDINTPN ---
Digital Asset Coordinator Progress Note Assessment/Plan: Assessment: Hypernatremia: Improved from yesterday, now 149. On D5, followed by Nephrology. Hyperglycemia: Improved, not normalized. On insulin gtt. Influenza: Likely contributes to hypoxemia, delirium Elevated d-dimer: At risk for PE, which could explain his hypoxemia/hypotension , although there are several other possible explanations. CTA posed a bit of risk for EVELINA given recently elevated Cr, but this is less of a concern given improvement in renal function. Hypoxemic respiratory failure: Multifactorial, with fluid shifts, Influenza, atelectasis, possible aspiration. Was on Vapotherm, now doing well with nasal cannula Hemodynamics: Hypotension improved, almost off NE. HR normal. Plan: Continue supplemental oxygen. Consider CTA in the next day or two if Cr remains OK, but he's clinically improved. Increase Tamiflu dose for improved renal function. Place feeding tube and start TFs. Start Lantus and increase frequency of SSI checks. 12/24/17 13:12 12/24/17 13:14 Subjective: Delirious, not answering questions Objective: Vital Signs Temp Pulse Resp BP Pulse Ox 38.7 C H 86 20 106/35 L 93 12/24/17 13:00 12/24/17 13:00 12/24/17 13:00 12/24/17 13:00 12/24/17 13:00 Laboratory Results 12/24/17 04:30 12/24/17 10:30 12/23/17 12/24/17 12/25/17 05:59 05:59 05:59 Intake Total 2136 2806.7 Output Total 1740 1960 Balance 396 846.7 PT 14.8 SEC (12.0-15.0) 12/19/17 20:12 INR 1.14 (0.83-1.16) 12/19/17 20:12 CXR: LLL atelectasis/infiltrate. Images reviewed by me. Physical Exam - Physical Exam General Appearance: alert, no apparent distress EENT: normal ENT inspection Neck: normal inspection Respiratory: lungs clear, normal breath sounds Cardiac/Chest: normal peripheral pulses, regular rate, rhythm Abdomen: normal bowel sounds, non-tender Skin: normal color, warm/dry Extremities: normal inspection Neuro/Psych: No alert, No normal mood/affect, No oriented x 3 ICD10 Worksheet Patient Problems: Problems Problem Status Onset Atrial fibrillation Acute Hypothermia Acute Non-ketotic hyperosmolar coma Acute
--- NOTE | 2017-12-24 13:20 | ASMTCMCOM ---
CM Note CM Note Notes: Unable to meet with patient as he is delirious and not answering questions, even though patient is clinically improved. Patient is a resident at [facility] and has had [facility] in the past. D/C needs remain TBD. CM will follow. Date Signed: 12/24/2017 01:20 PM Electronically Signed By:Gardenia Blum LCSW
[2017-12-24] MEDS ORDERED: INSULIN LISPRO 100 UNIT/ML SC SCH (14:00)
--- NOTE | 2017-12-24 14:25 | SOAPPROG ---
SOAP Progress Note Assessment/Plan: Assessment/Plan: EVELINA: nonoliguric, Cr down from 3.6 to 1.1. - No need for HD. - Will continue to monitor. - Avoid hypotension and nephrotoxins. Hypernatremia: Na was 155 yesterday, now down to 149 late this morning. - Will continue D5W. - Will continue to monitor q8h and adjust free water as needed. Shock: pt is just off Levophed, will continue to monitor BP closely. Subjective: No acute events overnight. Pt remains delirious, is currently off pressors but BP is a little soft. Objective: Vital Signs Temp Pulse Resp BP Pulse Ox 38.7 C H 86 20 106/35 L 93 12/24/17 13:00 12/24/17 13:00 12/24/17 13:00 12/24/17 13:00 12/24/17 13:00 Laboratory Results 12/24/17 04:30 12/24/17 10:30 12/23/17 12/24/17 12/25/17 05:59 05:59 05:59 Intake Total 2136 2806.7 Output Total 1740 1960 Balance 396 846.7 PT 14.8 SEC (12.0-15.0) 12/19/17 20:12 INR 1.14 (0.83-1.16) 12/19/17 20:12 General: sedated, no acute distress Eyes: PERRL OP: clear CV: RRR Resp: nonlabored respirations on oxymask Abd: Soft, NT/ND Ext: no edema BLE ICD10 Worksheet Patient Problems: Problems Problem Status Onset Atrial fibrillation Acute Hypothermia Acute Non-ketotic hyperosmolar coma Acute
[2017-12-24 14:35] LABS: PLATELET COUNT 79 10^3/uL (150-400)
[2017-12-24 14:43] LABS: INR 1.36 (0.83-1.16); PROTIME(PATIENT) 16.9 SEC (12.0-15.0)
[2017-12-24] MEDS ORDERED: POTASSIUM Cl (KCl) 50 ML IV ONE (14:47)
[2017-12-24] MEDS ORDERED: NOREPINEPHRINE/NS 500 ML IV SCH (15:00)
--- NOTE | 2017-12-24 16:06 | WOCRNPDOC ---
WOCRN Advanced Assessment Note - Skin Integrity Problem, Advanced Assess Bilateral Sacrum Pressure Injury Dressing Type: Allevyn Life Dressing Description: Intact Exudate Amount: None Integumentary Issue Intervention: Dressing Applied (Mepilex Border Sacrum), Dressing Initialed & Dated Abimbola Wound Tissue: Blanching, Intact Abimbola Wound Swelling: None Wound Bed Color: Purple Site Measurement - Head-to-Toe Length X Width X Depth (cm): L lower sacrum: [id number]. R lower sacrum: [id number] Pressure Injury Stage: Deep Tissue Injury (DTI) Pressure Injury Present on Admit: No Skin Integrity Problem Comment: Two discrete, dusky,dark purple areas on patient 's lower sacrum (upper buttocks), bilateral, skin intact. Presentation is different in that the purple hue is patchy. However, this is a change in the condition of his skin, and it is over a bony prominence; documenting as a suspected deep tissue injury. Placed Mepilex Border sacrum dressing, and discussed off-loading the site w/ patient's commercial litigation attorney, Ena Sutherland.
[2017-12-24] MEDS: OSELTAMIVIR 6 MG/ML UDSYR TUBE SCH ×2 (18:11→21:07)
[2017-12-24] MEDS: OSELTAMIVIR 6 MG/ML UDSYR PO SCH (18:29)
[2017-12-24] MEDS ORDERED: POTASSIUM Cl (KCl) 100 ML IV ONE (19:30)
[2017-12-24] MEDS: LORazepam 2 MG/ML INJ IVP PRN (19:50)
[2017-12-24] MEDS: FAMOTIDINE 20 MG/NACL 50 ML IV SCH (20:10)
[2017-12-24] MEDS ORDERED: POTASSIUM Cl (KCl) 10 MEQ in NS 100 ML IV ONE (20:30)
[2017-12-25] MEDS: INSULIN LISPRO 100 UNIT/ML SC SCH ×6 (00:10→21:16)
[2017-12-25] MEDS: D5W 1,000 ML IV SCH (02:27)
[2017-12-25] MEDS: ACETAMINOPHEN 650 MG/20.3 ML UDCUP TUBE PRN ×3 (04:11→21:17)
[2017-12-25] MEDS: DEXMEDETOMIDINE HCL 400 MCG in NS 100 ML IV SCH (05:37)
[2017-12-25] MEDS ORDERED: PROTOCOL POTASSIUM 1 DOSE MISC PRN (05:57)
[2017-12-25] MEDS ORDERED: POTASSIUM Cl (KCl) 50 ML IV SCH (06:00)
[2017-12-25] MEDS ORDERED: POTASSIUM CL 20 MEQ/15 ML UDCUP TUBE ONE ×3 (06:30→21:30)
[2017-12-25] MEDS: INSULIN GLARGINE 100 UNITS/ML UNIT SC SCH (08:30)
[2017-12-25] MEDS: OSELTAMIVIR 6 MG/ML UDSYR TUBE SCH ×2 (08:30→21:32)
--- NOTE | 2017-12-25 09:06 | PDINTPN ---
Iron Miner Blasting Progress Note Assessment/Plan: Assessment: Hypernatremia: No normalized. On D5, followed by Nephrology. Hyperglycemia: Improved, not normalized. On insulin gtt. Influenza: Likely contributes to hypoxemia, delirium Elevated d-dimer: At risk for PE, which could explain his hypoxemia/hypotension , although there are several other possible explanations. CTA posed a bit of risk for EVELINA given recently elevated Cr, but this is less of a concern given improvement in renal function. Hypoxemic respiratory failure: Multifactorial, with fluid shifts, Influenza, atelectasis, possible aspiration. Was on Vapotherm, now doing well with nasal cannula Hemodynamics: Hypotension improved, almost off NE. HR normal. Nutrition: SBFT placed /. On TF. Plan: Continue supplemental oxygen. Consider CTA in the next day or two if Cr remains OK, but he's clinically improved. Increase Tamiflu dose for improved renal function. Advance TF. Increase Lantus and continue frequent SSI checks. 12/25/17 09:06 Subjective: Not responding to questions Objective: Vital Signs Temp Pulse Resp BP Pulse Ox 38.3 C 85 29 H 108/66 94 12/25/17 08:00 12/25/17 08:00 12/25/17 08:00 12/25/17 08:00 12/25/17 08:00 Laboratory Results 12/25/17 05:20 12/25/17 05:20 12/24/17 12/25/17 12/26/17 05:59 05:59 05:59 Intake Total 2806.7 3958 Output Total 1960 2600 150 Balance 846.7 1358 -150 PT 16.9 SEC (12.0-15.0) H 12/24/17 14:00 INR 1.36 (0.83-1.16) H 12/24/17 14:00 Physical Exam - Physical Exam General Appearance: other (somnolent) EENT: normal ENT inspection Neck: normal inspection Respiratory: lungs clear, normal breath sounds Abdomen: normal bowel sounds, non-tender Skin: normal color, warm/dry Extremities: normal inspection Neuro/Psych: No alert, No normal mood/affect, No oriented x 3 (Opens eyes to loud voice, not following commands. Moves all extremities.) ICD10 Worksheet Patient Problems: Problems Problem Status Onset Atrial fibrillation Acute Hypothermia Acute Non-ketotic hyperosmolar coma Acute
[2017-12-25] MEDS ORDERED: DILTIAZEM 125 MG in D5W 125 ML IV SCH (10:30)
--- NOTE | 2017-12-25 11:45 | CPEKG ---
Heart Rate: 98 RR Interval: 612 P-R Interval: 105 QRSD Interval: 68 QT Interval: 348 QTC Interval: 445 P [place]: 27 QRS [place]: -17 T Wave [place]: 63 EKG Severity - ABNORMAL ECG - EKG Impression: SINUS TACHYCARDIA EKG Impression: MULTIPLE ATRIAL PREMATURE COMPLEXES EKG Impression: SHORT RI INTERVAL, ACCELERATED AV CONDUCTION EKG Impression: BORDERLINE LEFT AXIS DEVIATION Electronically Signed By: Edson Breaux 25-Dec-2017 23:33:03
--- NOTE | 2017-12-25 12:07 | HOSPPROG ---
Hospitalist Progress Note Assessment/Plan: 82-year-old gentleman found confused at his independent living apartment with elevated blood sugars # acute hypoxic respiratory failure-improvement overnight from BiPAP to 6 -> 5L oxy mask this am - influenza A positive Chest x-ray 3/2 without significant infiltrates - hypoventilation peribronchial inflammation - cont tamiflu per tube - continue aggressive pulmonary support - CTA planned as below # influenza A - cont Tamiflu per tube # tachycardia - New today. EKG shows sinus tac with frequent PAC's, not very responsive to dilt - change to metoprolol - CTA to r/o PE given acute change in status (HR was 80's). Would recheck plts and consider Fondaparinux if rules in for PE given abrupt drop in plts ( HIT Ab pending) # Severe sepsis w/ acute hypotension (leukocytosis, tachycardia, elevated lactate, acute renal failure) - bcx NGTD x 2 sets, off pressors - cont maintenance IVF # acute thrombocytopenia - platelets 274-> 73 this am - has received heparin during his stay - DIC panel with elevated fibrinogen, makes acute DIC unlikely - holding heparin - send HIT # severe hypernatremia- sodium near 170 -> 145 this a.m., renal following - d/c hypotonic fluids - add free water to tube 50 mLs q4h - follow # severe Hyperglycemia- HHS versus DKA. BS > 1000 on arrival - has fluctuating sugars since admit - cont Lantus, SSI #Acute encephalopathy - likely multifactorial with sodium near 170 and BS > 1000 - follow with aggressive supportive care - d/c precedex, prn haldol - if persists consider brain imaging #Acute kidney injury - most likely prerenal in setting of severe dehydration.- creatinine 3.4 -> 1.1 - cont hydration and monitoring # severe protein calorie malnutrition -Under weight-patient's current weight is 54.4 kg. - starting TF's #FEN - Diet NPO. #PPX - hold heparin subcu- platelets 73 - scd's #COR - Addressed code status with pt's medical proxy, Yeimi Oliva. She is confident pt would not want CPR or intubation and requests he be changed to DNR based on her previous discussions with him. This will be honored, now DNR. Dispo - patient admitted to ICU. He is critically ill requiring close monitoring. 45 minutes crit care time. I have discussed the case with Dr. Alejandro Subjective: Pt minimally responsive, doesn't follow commands. Appears SOB. HR up this afternoon. He occassionally grimaces in pain. +fever today. Objective: Vital Signs Temp Pulse Resp BP Pulse Ox 38.1 C 119 H 20 126/55 H 91 L 12/25/17 11:00 12/25/17 11:53 12/25/17 11:00 12/25/17 11:00 12/25/17 11:00 Laboratory Results 12/25/17 05:20 12/24/17 12/25/17 12/26/17 05:59 05:59 05:59 Intake Total 2806.7 3958 Output Total 1960 2600 150 Balance 846.7 1358 -150 PT 16.9 SEC (12.0-15.0) H 12/24/17 14:00 INR 1.36 (0.83-1.16) H 12/24/17 14:00 - Physical Exam Constitutional: no apparent distress Eyes: PERRL Ears, Nose, Mouth, Throat: moist mucous membranes Cardiovascular: tachycardia Respiratory: inspiratory crackles, respiratory distress Gastrointestinal: normoactive bowel sounds, soft, non-tender abdomen Skin: warm Psychiatric: encephalopathic ICD10 Worksheet Patient Problems: Problems Problem Status Onset Atrial fibrillation Acute Hypothermia Acute Non-ketotic hyperosmolar coma Acute
[2017-12-25] MEDS ORDERED: METOPROLOL TARTRATE 25 MG TAB PO SCH (12:15)
[2017-12-25] MEDS ORDERED: POTASSIUM CL 10 MEQ TAB PO ONE (12:23)
[2017-12-25] MEDS: METOPROLOL TARTRATE 25 MG TAB TUBE SCH ×2 (12:30→21:16)
[2017-12-25] MEDS ORDERED: POTASSIUM CL 20 MEQ TAB PO ONE (13:17)
[2017-12-25] MEDS ORDERED: HALOPERIDOL LACT 5 MG/ML INJ ONE (15:56)
[2017-12-25] MEDS: HALOPERIDOL LACT 5 MG/ML INJ IVP PRN (15:59)
--- NOTE | 2017-12-25 18:28 | SOAPPROG ---
SOAP Progress Note Assessment/Plan: Assessment: 1. arf due to prerenal azotemia: resolved 2. HyperNa: due to osmotic diuresis, last Na 146 earlier today and now off d5w. Strongly suspect this will need to be resumed or h2o per tube administered to prevent worsening. Will sign off. Plan: 12/25/17 18:25 Subjective: Awake but not conversant. Unable to tell me if he is thirsty. D5w apparently d/c 'd earlier today. Objective: Vital Signs Temp Pulse Resp BP Pulse Ox 38.6 C H 143 H 44 H 113/76 90 L 12/25/17 18:00 12/25/17 18:00 12/25/17 18:00 12/25/17 18:00 12/25/17 18:00 Laboratory Results 12/25/17 05:20 12/24/17 12/25/17 12/26/17 05:59 05:59 05:59 Intake Total 2806.7 3958 988.5 Output Total 1960 2600 1100 Balance 846.7 1358 -111.5 PT 16.9 SEC (12.0-15.0) H 12/24/17 14:00 INR 1.36 (0.83-1.16) H 12/24/17 14:00 Physical Exam - Physical Exam General Appearance: cachetic Respiratory: lungs clear (anteriorly) Cardiac/Chest: tachycardia Extremities: swelling (dependent edema) ICD10 Worksheet Patient Problems: Problems Problem Status Onset Atrial fibrillation Acute Hypothermia Acute Non-ketotic hyperosmolar coma Acute
[2017-12-25] MEDS ORDERED: POTASSIUM CL 10 MEQ TAB TUBE ONE (20:43)
[2017-12-25] MEDS: FAMOTIDINE 20 MG TAB TUBE SCH (21:16)
[2017-12-25] MEDS ORDERED: IOPAMIDOL (ISOVUE 370) 100 ML BTL IV ONE (21:40)
[2017-12-25] MEDS: LORazepam 2 MG/ML INJ IVP PRN (21:46)
[2017-12-26] MEDS ORDERED: POTASSIUM CL 20 MEQ/15 ML UDCUP TUBE ONE ×3 (00:30→20:45)
[2017-12-26] MEDS ORDERED: POTASSIUM Cl (KCl) 10 MEQ in NS 100 ML IV SCH (00:45)
[2017-12-26] MEDS: INSULIN LISPRO 100 UNIT/ML SC SCH ×6 (00:59→20:04)
[2017-12-26] MEDS ORDERED: NS 500 ML IV ONE (01:11)
[2017-12-26] MEDS: ALTEPLASE 2 MG VIAL IVP PRN (01:27)
[2017-12-26] MEDS: ACETAMINOPHEN 650 MG/20.3 ML UDCUP TUBE PRN ×4 (01:53→20:04)
--- NOTE | 2017-12-26 02:47 | CPEKG ---
Heart Rate: 124 RR Interval: 484 P-R Interval: 121 QRSD Interval: 72 QT Interval: 320 QTC Interval: 460 P [place]: 60 QRS [place]: -5 T Wave [place]: 68 EKG Severity - ABNORMAL ECG - EKG Impression: SINUS TACHYCARDIA EKG Impression: MULTIFORM VENTRICULAR PREMATURE COMPLEXES EKG Impression: MULTIPLE PACs WERE ALSO NOTED Electronically Signed By: Edson Breaux 27-Dec-2017 08:18:57
[2017-12-26] MEDS ORDERED: NS 1,000 ML IV SCH (03:10)
[2017-12-26] MEDS ORDERED: INSULIN GLARGINE 100 UNITS/ML UNIT SC SCH ×2 (07:26→09:41)
[2017-12-26] MEDS ORDERED: D5W 1,000 ML IV SCH (07:30)
[2017-12-26] MEDS: OSELTAMIVIR 6 MG/ML UDSYR TUBE SCH ×2 (08:15→20:05)
[2017-12-26] MEDS: METOPROLOL TARTRATE 25 MG TAB TUBE SCH ×2 (08:15→20:05)
[2017-12-26] MEDS ORDERED: POTASSIUM CL 10 MEQ TAB PO ONE ×2 (09:25→20:22)
--- NOTE | 2017-12-26 09:45 | PDINTPN ---
Leaflet Or Newspaper Deliverer Progress Note Assessment/Plan: Assessment: Hypernatremia: Normalized yesterday, now back up again after D5 stopped (due to hyperglycemia). Hyperglycemia: Remains in 200s. On insulin SSI and Lantus Influenza: Likely contributes to hypoxemia, delirium Elevated d-dimer: CT negative for PE. Hypoxemic respiratory failure: Due to bilateral pneumonia/atelectasis. Multifactorial, with fluid shifts, Influenza, atelectasis, possible aspiration. Was on Vapotherm, now doing well with nasal cannula Hemodynamics: Hypotension improved, almost off NE. HR normal. Nutrition: SBFT placed 3/. On TF. Tachycradia: Frequent atrial ectopy on ECG. Delirium: Persists, despite normalized Na and improved glucose. More alert today. Plan: Continue supplemental oxygen. Try to D/C diltiazem. increase metoprolol PRN. Increase fee H2O, may need Lasix if I>O. Increase Lantus and continue frequent SSI checks. Melatonin, Precedex at night for sleep, try to hold Precedex during the day. Follow Na. 12/26/17 09:53 Subjective: Alert but delirious, not following commands. Objective: Vital Signs Temp Pulse Resp BP Pulse Ox 38.2 C 91 29 H 112/54 L 94 12/26/17 08:00 12/26/17 09:00 12/26/17 09:00 12/26/17 09:00 12/26/17 09:00 Laboratory Results 12/26/17 04:10 12/26/17 04:10 12/25/17 12/26/17 12/27/17 05:59 05:59 05:59 Intake Total 3958 2955.3 Output Total 2600 2100 150 Balance 1358 855.3 -150 PT 16.9 SEC (12.0-15.0) H 12/24/17 14:00 INR 1.36 (0.83-1.16) H 12/24/17 14:00 CT Chest: Bibasilar and RUL pneumonia. Images reviewed by me. Physical Exam - Physical Exam General Appearance: alert, no apparent distress EENT: normal ENT inspection Neck: normal inspection Respiratory: lungs clear, normal breath sounds Cardiac/Chest: regular rate, rhythm, No edema Abdomen: normal bowel sounds, non-tender Skin: normal color, warm/dry Extremities: normal inspection Neuro/Psych: alert, No normal mood/affect, No oriented x 3 ICD10 Worksheet Patient Problems: Problems Problem Status Onset Atrial fibrillation Acute Hypothermia Acute Non-ketotic hyperosmolar coma Acute
[2017-12-26] MEDS ORDERED: POTASSIUM CL 20 MEQ TAB TUBE ONE (10:28)
--- NOTE | 2017-12-26 11:00 | WOCRNPDOC ---
WOCRN Advanced Assessment Note - Skin Integrity Problem, Advanced Assess Scrotum Dressing Type: Open to Air Abimbola Wound Tissue: Erythema, Raw, Swollen, Denuded Abimbola Wound Swelling: Moderate Wound Bed Color: Red Skin Integrity Problem Comment: Raw, denuded skin noted on scrotum w/ scattered satellite lesions, possibly indicative of fungal involvement. Per automation and controls supervisor Ayah , patient is constantly moist r/t frequent stooling. Will have nursing initiate tx w/ MAD(moisture-associated dermatitis) cream today. Verbal order obtained from Dr. Romo for cream.
--- NOTE | 2017-12-26 11:01 | HOSPPROG ---
Hospitalist Progress Note Assessment/Plan: 82-year-old gentleman found confused at his independent living apartment with elevated blood sugars, now Influenza A positive # acute hypoxic respiratory failure- 92% on 6 LPM - influenza A positive. CTA last night personally reviewed and interpreted- neg for PE, b/l patchy infiltrates - note previous PCT was >4. Recheck PCT this am and if remains elevated, consider atbx for HCAP - cont tamiflu per tube - continue aggressive pulmonary support # influenza A - cont Tamiflu per tube # tachycardia - Sinus with PAC's, telemetry personally reviewed and interpreted , received IVF's overnight, improved today - cont po metoprolol # Severe sepsis w/ acute hypotension (leukocytosis, tachycardia, elevated lactate, acute renal failure) - bcx NGTD x 2 sets, off pressors # acute thrombocytopenia - platelets 274-> 73 this am - has received heparin during his stay - DIC panel with elevated fibrinogen, makes acute DIC unlikely - holding heparin - HIT pending # severe hypernatremia- sodium near 170 on arrival -> 145 yesterday with hypotonic fluids, which were d/c'd, but Na back up to 150 this am after NS overnight - increase free water in tube feeds to 200 mLs q2h - recheck bmp this afternoon # severe Hyperglycemia- HHS versus DKA. BS > 1000 on arrival - now bg's 200's - increase Lantus - cont SSI #acute encephalopathy - persists, likely multifactorial with sodium near 170 and BS > 1000, ?infection related. CT brain neg on admission. - considering addition of atbx for PNA, repeat PCT pending - wean precedex - prn haldol for agitation - neurology consulted for opinion regarding further imaging vs LP #Acute kidney injury - Cr normalized with IVF's # severe protein calorie malnutrition -Under weight-patient's current weight is 54.4 kg. - cont TF's #FEN - tube feeds #PPX - holding heparin subcu- platelets 73 - scd's #COR - Addressed code status with pt's medical proxy, Yeimi Oliva. Pt now DNR. Dispo - patient admitted to ICU. He is critically ill requiring close monitoring. 45 minutes crit care time. I have discussed the case with Dr. Alejandro and care team Subjective: Pt remains encephalopathic. Not responding or following commands. Still low grade fevers. +tachypnea, intermittently agitated. Objective: Vital Signs Temp Pulse Resp BP Pulse Ox 38.2 C 90 30 H 120/90 H 92 12/26/17 08:00 12/26/17 10:00 12/26/17 10:00 12/26/17 10:00 12/26/17 10:00 Laboratory Results 12/26/17 04:10 12/26/17 04:10 12/25/17 12/26/17 12/27/17 05:59 05:59 05:59 Intake Total 3958 2955.3 Output Total 2600 2100 150 Balance 1358 855.3 -150 PT 16.9 SEC (12.0-15.0) H 12/24/17 14:00 INR 1.36 (0.83-1.16) H 12/24/17 14:00 - Physical Exam Constitutional: no apparent distress Eyes: PERRL Ears, Nose, Mouth, Throat: moist mucous membranes Cardiovascular: regular rate and rhythym Respiratory: no respiratory distress, inspiratory crackles Gastrointestinal: normoactive bowel sounds, soft, non-tender abdomen Skin: warm Psychiatric: encephalopathic ICD10 Worksheet Patient Problems: Problems Problem Status Onset Atrial fibrillation Acute Hypothermia Acute Non-ketotic hyperosmolar coma Acute
[2017-12-26] MEDS: LIDO/ZINC OX/CLOTRIMAZOLE (MAD) 116 GM CREAM TP PRN (12:16)
--- NOTE | 2017-12-26 13:26 | NEUROPROG ---
Assessment: HOSPITAL NEUROLOGY CONSULT REQUESTING: Anastasia Romo DO REASON: encephalopathy HPI: 82 year old man admitted 12/19 after being found obtunded at his independent living facility during a welfare check. He reportedly tends to isolate himself , with a background of depression, but had been seen the day prior by staff in his usual state of health. On ED arrival he was found to be have profoundly elevated blood glucose levels (>800) with severe acidemia (VBG pH 7.14, lactate 4.4) and elevated B-hydroxybutyrate levels. He was also found to have prerenal EVELINA and profound hyponatremia (in 160s). He was in respiratory distress and tested positive for influenza - he is being supported on supplemental O2. He now has patchy infiltrates on CT chest (used to rule out PE for his respiratory failure). He has also developed thrombocytopenia. Supportive measures were initiated for the above. However, despite improving glucose, sodium, renal function, he remains obtunded. His procalcitonin has been elevated still. He now has a rather coarse cough. He has also been agitated and has just been weaned from dexmedetomidine infusion, but still getting intermittent pushes of haloperidol and lorazepam. CT head wo was done in the ED revealing global atrophy and periventricular signal attenuation likely reflective of chronic microvascular ischemia. ROS: As per the HPI, otherwise a complete 12 point ROS was performed and is negative ALLERGIES AND MEDS: As recorded in the EMR - reviewed and reconciled PFSH: As per the intake H&P by Dr. Rocha from 12/19/17 EXAM: VS reviewed in EMR GEN: disheveled elderly man layin in bed with eyes closed, intermittent coarse cough HEENT: NCAT, sclera anicteric, conjunctiva not injected, MMD NECK: supple, nontender, no meningismus CV: RRR s1 s2 wo m/r/c/g. Carotid pulses 2+ wo bruit NEURO: MS: eyes closed, opens eyes briefly to nox stim. Says "ouch" to nox stimuli. Seems to move eyes toward examiner when yelling his name. Unable to assess higher cortical function due to nonresponsiveness CN: pupils 3mm round and reactive. Unable to visualize fundi. No blink to threat. Primary gaze dysconjugate with left eye being slightly depressed. No VORs. Grimaces and yells to nox stim of the supraorbital notches. Corneals preserved. Face symmetric. MOTOR: low tone. Low bulk. No adventitial movements. Seen moving the arms spontaneously, but no purposefully SENSORY: localizes to nox stim in BUEs, withdraws to nox stim in BLEs COORD: unable to assess REFLEX: plantars down. No clonus. Absent DTRs. GAIT: unable to assess DATA REVIEW: Labs reviewed in EMR PERSONALLY INTERPRETED RESULTS AND DATA: CT head wo - per HPI IMPRESSION AND RECOMMENDATIONS: // SUSPECT TOXIC/METABOLIC ENCEPHALOPATHY // DKA - IMPROVED // HYPERNATREMIA - IMPROVED // EVELINA - IMPROVED // INFLUENZA // RESPIRATORY DECLINE // LIKELY HCAP VS. ASPIRATION // METABOLIC ACIDOSIS - IMPROVED Patient remains obtunded despite supportive measures for his multiple medical issues. I suspect prolonged encephalopathy from advanced age/low cognitive reserve in the setting of a profound number of severe metabolic disturbances. He seems to still have some ongoing pulmonary issues, with possible superimposed bacterial pneumonia. Hypernatremia has only recently been resolved. I also suspect the administration of haloperidol and lorazepam may be contributing to his reduced LOC. Would continue with medical optimization per primary team and ICU team. Consider using alternative medications for agitation, such as olanzapine IM PRN. Delirium precautions, including lights on/window shade up from [id number], TV/ radio on during daytime for stimulation, maintain upright position as much as possible during daytime, frequent orientation, sensory optimization, nonpharmacologic sleep enhancement with cool/quiet/dark room after 2100. Will continue to follow - Dr. Nash to assume neurology service tomorrow. Objective: Vital Signs Temp Pulse Resp BP Pulse Ox 38.0 C 156 H 22 H 111/61 92 12/26/17 12:00 12/26/17 12:00 12/26/17 12:00 12/26/17 12:00 12/26/17 12:00 Laboratory Results 12/26/17 04:10 12/26/17 04:10 12/25/17 12/26/17 12/27/17 05:59 05:59 05:59 Intake Total 3958 2955.3 Output Total 2600 2100 625 Balance 1358 855.3 -625 PT 16.9 SEC (12.0-15.0) H 12/24/17 14:00 INR 1.36 (0.83-1.16) H 12/24/17 14:00 Allergies/Adverse Reactions: Unable to Assess Allergy (Verified 12/25/17 04:32)
[2017-12-26] MEDS: DEXMEDETOMIDINE HCL 400 MCG in NS 100 ML IV SCH (13:48)
[2017-12-26] MEDS: CEFEPIME HCL 2 GM in STERILE WATER INJ 12.5 ML IV SCH ×2 (15:35→22:52)
[2017-12-26] MEDS ORDERED: METOPROLOL TARTRATE 5 MG/5 ML INJ IVP PRN (16:06)
[2017-12-26] MEDS ORDERED: METOPROLOL TARTRATE 5 MG/5 ML INJ ONE (16:10)
[2017-12-26] MEDS: MELATONIN 3 MG TAB PO SCH (20:05)
[2017-12-26] MEDS: FAMOTIDINE 20 MG TAB TUBE SCH (20:05)
[2017-12-27] MEDS: INSULIN LISPRO 100 UNIT/ML SC SCH ×7 (00:40→23:33)
[2017-12-27] MEDS: ACETAMINOPHEN 650 MG/20.3 ML UDCUP TUBE PRN ×4 (00:40→23:09)
[2017-12-27] MEDS: LORazepam 2 MG/ML INJ IVP PRN ×2 (01:31→18:25)
[2017-12-27] MEDS ORDERED: POTASSIUM CL 20 MEQ/15 ML UDCUP TUBE ONE ×2 (03:04→12:30)
[2017-12-27] MEDS: CEFEPIME HCL 2 GM in STERILE WATER INJ 12.5 ML IV SCH ×3 (05:47→23:07)
[2017-12-27] MEDS ORDERED: POTASSIUM CL 10 MEQ TAB PO ONE (06:39)
[2017-12-27] MEDS ORDERED: POTASSIUM CL 20 MEQ/15 ML UDCUP PO ONE (06:45)
[2017-12-27] MEDS: OSELTAMIVIR 6 MG/ML UDSYR TUBE SCH ×2 (08:38→23:10)
[2017-12-27] MEDS: METOPROLOL TARTRATE 25 MG TAB TUBE SCH ×2 (08:38→23:09)
[2017-12-27] MEDS ORDERED: INSULIN GLARGINE 100 UNITS/ML UNIT SC SCH ×2 (09:00→11:25)
--- NOTE | 2017-12-27 11:22 | HOSPPROG ---
Hospitalist Progress Note Assessment/Plan: 82-year-old gentleman found confused at his independent living apartment with elevated blood sugars, now Influenza A positive # acute hypoxic respiratory failure- 92% on 6 LPM - influenza A positive. CTA neg for PE, b/l patchy infiltrates. - started Cefepime and Flagyl 3/4 for possible HCAP vs aspiration - cont tamiflu per tube - continue aggressive pulmonary support - aspiration precautions # Severe sepsis w/ acute hypotension (leukocytosis, tachycardia, elevated lactate, acute renal failure) - bcx NGTD x 2 sets, off pressors # Influenza A with poss PNA complication - PCT 1.5 - cont Tamiflu per tube - abtx as above # tachycardia - Sinus with PAC's, telemetry personally reviewed and interpreted. Improved with BB, has required prn IV doses - increase metoprolol # acute thrombocytopenia - platelets 274-> 73-> 101 this am - has received heparin during his stay - DIC panel with elevated fibrinogen, makes acute DIC unlikely - holding heparin - HIT pending # severe hypernatremia- sodium near 170 on arrival -> 145 yesterday with hypotonic fluids, which were d/c'd, but Na back up to 150 yest after NS overnight - increased free water in tube feeds to 200 mLs q2h and Na trending back down - daily bmp # severe Hyperglycemia- HHS versus DKA. BS > 1000 on arrival - now bg's 200's - increase Lantus again today to 20 u - cont SSI #acute encephalopathy - persists, likely multifactorial with sodium near 170 and BS > 1000, ?infection related. CT brain neg on admission. - wean precedex - prn haldol for agitation - neurology consulted for opinion regarding further imaging vs LP - no further workup recommended #Acute kidney injury - Cr normalized with IVF's # severe protein calorie malnutrition -Under weight-patient's current weight is 54.4 kg. - cont TF's #FEN - tube feeds #PPX - fondaparinux while awaiting HIT Ab (plts now >100) #COR - Addressed code status with pt's medical proxy, Yeimi Oliva. Pt now DNR. Will re-address goals of care. Dispo - patient admitted to ICU. He is critically ill requiring close monitoring. 45 minutes crit care time. Considering LTAC placement I have discussed the case with Dr. Landers and care team Subjective: Pt a bit more awake, opens eyes and seems to make better eye contact. Still not really following commands or verbalizing. Tmax 38.8 last night. Still appears SOB. Objective: Vital Signs Temp Pulse Resp BP Pulse Ox 37.9 C 92 21 H 121/72 H 92 12/27/17 10:00 12/27/17 10:00 12/27/17 10:00 12/27/17 10:00 12/27/17 10:00 Microbiology 12/26/17 19:00 - Final Sputum, Expectorated Laboratory Results 12/27/17 05:50 12/27/17 05:50 12/26/17 12/27/17 12/28/17 05:59 05:59 05:59 Intake Total 2955.3 3512.1 Output Total 2100 2695 Balance 855.3 817.1 PT 16.9 SEC (12.0-15.0) H 12/24/17 14:00 INR 1.36 (0.83-1.16) H 12/24/17 14:00 - Physical Exam Constitutional: no apparent distress Eyes: PERRL Ears, Nose, Mouth, Throat: moist mucous membranes Cardiovascular: regular rate and rhythym Respiratory: no respiratory distress, reduced air movement, expiratory wheeze, inspiratory crackles Gastrointestinal: normoactive bowel sounds, soft, non-tender abdomen Skin: warm Musculoskeletal: other (moves all 4 extremities) Psychiatric: encephalopathic ICD10 Worksheet Patient Problems: Problems Problem Status Onset Atrial fibrillation Acute Hypothermia Acute Non-ketotic hyperosmolar coma Acute
[2017-12-27] MEDS ORDERED: METOPROLOL TARTRATE 25 MG TAB TUBE SCH (11:25)
[2017-12-27] MEDS ORDERED: METOPROLOL TARTRATE 25 MG TAB TUBE ONE (11:45)
[2017-12-27] MEDS ORDERED: INSULIN GLARGINE 100 UNITS/ML UNIT SC ONE (11:45)
[2017-12-27] MEDS ORDERED: POTASSIUM Cl (KCl) 100 ML IV SCH (12:30)
--- NOTE | 2017-12-27 12:57 | PDINTPN ---
Practice Director Progress Note Assessment/Plan: Assessment: Hypernatremia: Sodium 148 today . Hyperglycemia: Glucoses remain in 200s. On insulin SSI and Lantus. Will increase the latter. Influenza: Improving. Likely contributes to hypoxemia, delirium. Hypoxemic respiratory failure: Due to bilateral pneumonia/atelectasis. Multifactorial, with fluid shifts, Influenza, atelectasis, possible aspiration. Was on Vapotherm, now doing well with nasal cannula at 6L. Hemodynamics: Hypotension improved, almost off NE. HR normal. Nutrition: SBFT placed 12/24. On TF. Tachycradia: Frequent atrial ectopy on ECG. Delirium: Persists, but improving and somewhat more alert today. Multifactorial : Toxic metabolic. Neurologic consultation appreciated. Plan: Continue care in the intensive care unit. Continue supplemental oxygen. Continue antibiotics: Cefepime and Flagyl. Continue metoprolol PRN. Increase fee H2O, may need Lasix if I>O. Increase Lantus and continue frequent SSI checks. Continue Melatonin and Precedex at night for sleep and agitation. Hold Precedex during the day and increase stimulation/orientation as possible. Follow Na, lab, CXR. Began to look at disposition/discharge issues. 35 min critical care time spent directly with the patient. Discussed with nursing, hospitalist, multi disciplinary team. Subjective: Restless, mitts in place. Looks to voice. Will not answer questions for me or follow commands. Objective: Vital Signs Temp Pulse Resp BP Pulse Ox 37.8 C 127 H 32 H 129/56 H 92 12/27/17 12:00 12/27/17 12:26 12/27/17 12:00 12/27/17 12:26 12/27/17 12:00 Microbiology 12/26/17 19:00 - Final Sputum, Expectorated Laboratory Results 12/27/17 05:50 12/27/17 11:50 12/26/17 12/27/17 12/28/17 05:59 05:59 05:59 Intake Total 2955.3 3512.1 Output Total 2100 2695 360 Balance 855.3 817.1 -360 PT 16.9 SEC (12.0-15.0) H 12/24/17 14:00 INR 1.36 (0.83-1.16) H 12/24/17 14:00 Physical Exam - Physical Exam General Appearance: thin, other (Restless), No alert EENT: PERRL/EOMI, other (Nasal cannula at 6 L) Neck: normal inspection Respiratory: lungs clear (Anteriorly), decreased breath sounds (At bases), rales (Bibasilar rales present), No rhonchi (Currently) Cardiac/Chest: regular rate, rhythm, systolic murmur, extra beats Abdomen: non-tender, soft, No normal bowel sounds (Decreased, present) Male Genitalia: other (Hi catheter in place) Skin: warm/dry, pallor Extremities: pedal edema (Trace) Neuro/Psych: no motor/sensory deficits (Moves all extremities equally), No cognition abnormalities (Remains obtunded, restless) ICD10 Worksheet Patient Problems: Problems Problem Status Onset Non-ketotic hyperosmolar coma Acute Hypothermia Acute Atrial fibrillation Acute
--- NOTE | 2017-12-27 13:07 | NEUROPROG ---
Assessment: [id number] - Neurology Consult: - CC: F/U for toxic-metabolic encephalopathy - HPI: Pt found confused at independent living facility on 12/19/17 so he was admitted to [facility]. On admission found to have glucose of >800, severe acidemia (VBG pH 7.14, lactate 4.4), prerenal EVELINA, thrombocytopenia, and hyponatremia in the 160s. He was also in respiratory distress and tested positive for influenza. There was also concern for possible pneumonia. It was also noted the patient had received haloperidol and lorazepam. Dr. Oakes (neurology) saw the patient on 12/26/17 and felt he likely had toxic-metabolic encephalopathy from underlying medical conditions and medications to explain his altered mentation. I initially saw the patient on 12/27/17. He was awake moving all extremities but was not attending to his environment and appeared encephalopathic. 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 DKA, Hyponatremia, EVELINA all improved from admission on 12/19/17 2. Influenza with respiratory issues, HCAP vs aspiration - 3. Toxic-metabolic encephalopathy: Likely his acute medical issues, multiple medications used to treat his symptoms, and his underlying reduced cognitive reserves have caused him to get a prolonged toxic-metabolic encephalopathy. Treatment is supportive. - Plan: - Agree with hospitalist treatment of underlying conditions - Neurology will continue to follow - 35 min spent with patient, coordinating care and counseling on prognosis of his condition. Objective: Vital Signs Temp Pulse Resp BP Pulse Ox 37.8 C 127 H 32 H 129/56 H 92 12/27/17 12:00 12/27/17 12:26 12/27/17 12:00 12/27/17 12:26 12/27/17 12:00 Microbiology 12/26/17 19:00 - Final Sputum, Expectorated Laboratory Results 12/27/17 05:50 12/27/17 11:50 12/26/17 12/27/17 12/28/17 05:59 05:59 05:59 Intake Total 2955.3 3512.1 Output Total 2100 2695 360 Balance 855.3 817.1 -360 PT 16.9 SEC (12.0-15.0) H 12/24/17 14:00 INR 1.36 (0.83-1.16) H 12/24/17 14:00 Allergies/Adverse Reactions: Unable to Assess Allergy (Verified 12/25/17 04:32)
--- NOTE | 2017-12-27 16:08 | ASMTCMCOM ---
CM Note CM Note Notes: Contacted [facility], and spoke w/Todd Velasco RN, who reported that patient had been under their care for the past 3yrs and Christie Rosario RN had been visiting him 1x/month during those years. They knew of his friend, Yeimi in [place]. Todd reports that Yeimi was his only friend and she didn't know of any family. Above RN's report that patient wouldn't want to be kept alive if he was confused and wouldn't have a meaningful life. Patient also had [employer] [phone] assisting him at home. Roseline, the company Director will contact this CM Wednesday to confirm patient's thoughts and feelings. Date Signed: 12/27/2017 04:06 PM Electronically Signed By:Jeri Mclean LCSW
[2017-12-27] MEDS: FONDAPARINUX SODIUM 2.5 MG/0.5 ML SYR SC SCH (17:12)
[2017-12-27] MEDS: DEXMEDETOMIDINE HCL 400 MCG in NS 100 ML IV SCH (21:00)
[2017-12-27] MEDS: FAMOTIDINE 20 MG TAB TUBE SCH (23:09)
[2017-12-27] MEDS: MELATONIN 3 MG TAB PO SCH (23:10)
[2017-12-27] MEDS: LIDO/ZINC OX/CLOTRIMAZOLE (MAD) 116 GM CREAM TP PRN (23:10)
[2017-12-28] MEDS: LORazepam 2 MG/ML INJ IVP PRN ×3 (00:44→22:29)
[2017-12-28] MEDS ORDERED: POTASSIUM CL 20 MEQ/15 ML UDCUP PO ONE (03:30)
[2017-12-28] MEDS: INSULIN LISPRO 100 UNIT/ML SC SCH ×5 (03:57→22:24)
[2017-12-28] MEDS: ACETAMINOPHEN 650 MG/20.3 ML UDCUP TUBE PRN ×2 (04:00→15:52)
[2017-12-28] MEDS: CEFEPIME HCL 2 GM in STERILE WATER INJ 12.5 ML IV SCH ×3 (05:44→22:18)
[2017-12-28] MEDS ORDERED: POTASSIUM CL 10 MEQ TAB PO ONE (07:33)
[2017-12-28] MEDS ORDERED: POTASSIUM CL 20 MEQ/15 ML UDCUP TUBE ONE ×3 (07:45→21:00)
[2017-12-28] MEDS: OSELTAMIVIR 6 MG/ML UDSYR TUBE SCH ×2 (08:50→22:19)
[2017-12-28] MEDS: METOPROLOL TARTRATE 25 MG TAB TUBE SCH ×2 (08:50→22:19)
[2017-12-28] MEDS ORDERED: INSULIN GLARGINE 100 UNITS/ML UNIT SC SCH ×2 (09:00)
--- NOTE | 2017-12-28 09:20 | PDINTPN ---
[employer] Director School Progress Note Assessment/Plan: Assessment: Influenza: Improving. Likely contributes to hypoxemia, delirium. Hypoxemic respiratory failure: Due to bilateral pneumonia/atelectasis. Multifactorial, with fluid shifts, Influenza, atelectasis, possible aspiration. Oxygen stable at 6 L however new infiltrates have developed: Possibly secondary to recurrent aspiration, possibly new staph pneumonia, possibly fluid. ? Remains on metronidazole and cefepime. Hypernatremia: Improving, Sodium 147 today Hyperglycemia: Glucoses remain in 200s. On insulin SSI and Lantus. Will increase Lantus again today. Hemodynamics: Resolved. HR normal. Nutrition: SBFT placed 12/24. Tolerating TFs. Tachycradia: Resolved, still with ectopy. Delirium: Persists, without significant improvement. Multifactorial: Toxic metabolic. Neurologic consultation appreciated. On Precedex at night however still sleeping for only a few hours. Prognosis remains guarded and may be poor. Not responding to current therapies from a cognitive standpoint. Requiring significant care. Definitely will not be able to go back to an independent living situation unless something changes. It may be reasonable to talk about transitioning to comfort care, possibly hospice? Plan: Continue care in the intensive care unit. Continue supplemental oxygen. Continue Cefepime and Flagyl. Await sensitivities on Staph aureus comma back later today. Continue fee H2O. Will restart Lasix and try to get a neutral fluid balance over the next few days. Increase Lantus again and continue sliding scale insulin. Continue Melatonin and Precedex at night for sleep and agitation. Hold Precedex during the day and increase stimulation/orientation as possible. Follow Na, lab, CXR. Readdress prognosis and consider options, including LTAC, Hospice, comfort care, etc. 40 min critical care time spent directly with the patient. Discussed with nursing, hospitalist, ICU multi disciplinary team. Subjective: Moaning, looks to voice, nonverbal. Restless. Objective: Vital Signs Temp Pulse Resp BP Pulse Ox 37.4 C 83 24 H 117/61 93 12/28/17 08:00 12/28/17 08:00 12/28/17 08:00 12/28/17 08:00 12/28/17 08:00 Microbiology 12/22/17 15:50 Blood Culture - Final Blood 12/22/17 15:30 Blood Culture - Final Blood 12/26/17 19:00 - Final Sputum, Expectorated Laboratory Results 12/28/17 05:50 12/28/17 05:50 12/27/17 12/28/17 12/29/17 05:59 05:59 05:59 Intake Total 3512.1 3258.2 Output Total 2695 2009 Balance 817.1 1248.2 PT 16.9 SEC (12.0-15.0) H 12/24/17 14:00 INR 1.36 (0.83-1.16) H 12/24/17 14:00 Laboratory Tests 12/27/17 15:30 C. difficile Tox (PCR) NEGATIVE CXR: Increased infiltrates in right upper lobe, right lower lobe, somewhat retrocardiac. Possible aspiration? Microbiology 12/26/17 19:00 Sputum, Expectorated - Final 12/26/17 19:00 Sputum, Expectorated Sputum Culture - Preliminary Staphylococcus Aureus Physical Exam - Physical Exam General Appearance: mild distress, thin, other (Restless, looks to voice, not responsive to commands) EENT: PERRL/EOMI, EOM palsy, other (Dry mucous membranes. Nasal cannula in place at 6 L, no change) Neck: normal inspection (No obvious jugular venous distension) Respiratory: lungs clear (Anteriorly), decreased breath sounds, rales (Few), other (No obvious consolidation), No rhonchi, No wheezing Cardiac/Chest: regular rate, rhythm, systolic murmur Abdomen: normal bowel sounds, non-tender, soft, other (Tolerating tube feeding) Male Genitalia: other (Hi catheter in place comma input greater than output over the last number of days.) Skin: warm/dry, pallor Extremities: pedal edema (Trace) Neuro/Psych: no motor/sensory deficits (Moves all extremities), cognition abnormalities (Obtunded, restless, nonverbal, not following commands) ICD10 Worksheet Patient Problems: Problems Problem Status Onset Non-ketotic hyperosmolar coma Acute Hypothermia Acute Atrial fibrillation Acute
[2017-12-28] MEDS ORDERED: INSULIN GLARGINE 100 UNITS/ML UNIT SC ONE (10:30)
[2017-12-28] MEDS: FONDAPARINUX SODIUM 2.5 MG/0.5 ML SYR SC SCH (11:08)
[2017-12-28] MEDS ORDERED: FUROSEMIDE 40 MG/4 ML VIAL IVP ONE (11:12)
--- NOTE | 2017-12-28 11:13 | HOSPPROG ---
Hospitalist Progress Note Assessment/Plan: 82-year-old gentleman found confused at his independent living apartment with elevated blood sugars, now Influenza A positive, condition remains guarded # acute hypoxic respiratory failure- 92% on 6 LPM - influenza A positive. CTA neg for PE, b/l patchy infiltrates. CXR this am pers reviewed / interp- increasing infiltrates. MSSA on sputum culture. - cont Cefepime and Flagyl for possible HCAP vs aspiration, day 3/7 - cont tamiflu per tube - continue aggressive pulmonary support - aspiration precautions # Severe sepsis w/ acute hypotension (leukocytosis, tachycardia, elevated lactate, acute renal failure) - bcx NGTD x 2 sets, off pressors # Influenza A with poss PNA complication - PCT 1.5 - cont Tamiflu per tube - abtx as above # tachycardia - Sinus with PAC's / SVT, telemetry personally reviewed and interpreted. Improved with BB. - cont metoprolol # acute thrombocytopenia - platelets 274-> 73-> 159 this am - has received heparin during his stay - DIC panel with elevated fibrinogen, makes acute DIC unlikely - defer heparin - HIT pending # severe hypernatremia- sodium near 170 on arrival, down to 145 with hypotonic fluids, back up to 150 off fluids, now trending down with increased free h20 - cont free water in tube feeds, currently 200 mLs q2h - daily bmp # severe Hyperglycemia- HHS versus DKA. BS > 1000 on arrival - now bg's 200's - increase Lantus again today to 30 u - cont SSI #acute encephalopathy - persists, likely multifactorial with sodium near 170 and BS > 1000, ?infection related. CT brain neg on admission. Not improving. - off precedex - prn haldol for agitation - neurology consulted for opinion regarding further imaging vs LP - no further workup recommended #Acute kidney injury - Cr normalized with IVF's # severe protein calorie malnutrition -Under weight-patient's current weight is 54.4 kg. - cont TF's #FEN - tube feeds #diarrhea - c diff neg. start immodium. pt has kicked out 2 rectal tubes #PPX - fondaparinux while awaiting HIT Ab (plts now >100) #COR - Addressed code status with pt's medical proxy, Yeimi Oliva. Pt now DNR. #Care goals - pt's condition not improving. Yeimi does not think he would want to continue life in this state. Consider hospice / comfort care if not improving in next 1-2 days Dispo - cont ICU. He is critically ill requiring close monitoring. 45 minutes crit care time. Considering LTAC placement vs hospice as above. I have discussed the case with Dr. Landers and care team Subjective: Pt remains encephalopathic, grunts, but no meaningful words. Not responding to voice. No fevers. +ongoing cough, tachypnea. tolerating tube feeds Objective: Vital Signs Temp Pulse Resp BP Pulse Ox 37.4 C 88 30 H 123/61 H 90 L 12/28/17 08:00 12/28/17 11:00 12/28/17 11:00 12/28/17 11:00 12/28/17 11:00 Microbiology 12/26/17 19:00 - Final Sputum, Expectorated 12/22/17 15:50 Blood Culture - Final Blood 12/22/17 15:30 Blood Culture - Final Blood Laboratory Results 12/28/17 05:50 12/28/17 05:50 12/27/17 12/28/17 12/29/17 05:59 05:59 05:59 Intake Total 3512.1 3258.2 Output Total 2695 2010 Balance 817.1 1248.2 PT 16.9 SEC (12.0-15.0) H 12/24/17 14:00 INR 1.36 (0.83-1.16) H 12/24/17 14:00 - Physical Exam Constitutional: chronically ill appearing Eyes: PERRL Ears, Nose, Mouth, Throat: moist mucous membranes Cardiovascular: regular rate and rhythym Respiratory: no respiratory distress, reduced air movement, inspiratory crackles Gastrointestinal: normoactive bowel sounds, soft, non-tender abdomen Skin: warm Musculoskeletal: generalized weakness Neurologic: other (agitated) Psychiatric: encephalopathic ICD10 Worksheet Patient Problems: Problems Problem Status Onset Atrial fibrillation Acute Hypothermia Acute Non-ketotic hyperosmolar coma Acute
--- NOTE | 2017-12-28 12:19 | WOCRNPDOC ---
WOCRN Advanced Assessment Note - Skin Integrity Problem, Advanced Assess Forehead Pressure Injury Dressing Type: Open to Air Wound Bed Constitution: Healed Pressure Injury Stage: Stage 1, Pottery Striper Related Pressure Injury Pressure Injury Present on Admit: No Nose Pressure Injury Dressing Type: Open to Air Wound Bed Constitution: Scab Site Measurement - Head-to-Toe Length X Width X Depth (cm): 0.8x0.7xscab Pressure Injury Stage: Pottery Striper Related Pressure Injury (Bipap) Pressure Injury Present on Admit: No Skin Integrity Problem Comment: Bipap off. Unable to stage due to scabbing. Communicated with CHANDLER Chao that dressing must be in place. Will update orders. Wound care will continue to follow. Lower Lip Pressure Injury Dressing Type: Open to Air Wound Bed Constitution: Healed Pressure Injury Stage: Stage 1, Pottery Striper Related Pressure Injury Pressure Injury Present on Admit: No Coccyx Dressing Type: Open to Air Exudate Amount: None Wound Bed Constitution: Red/[place] - Non Granular Tissue (100%) Site Measurement - Head-to-Toe Length X Width X Depth (cm): 1.8x0.5x0.1 Pressure Injury Stage: Stage 2 Pressure Injury Present on Admit: No Skin Integrity Problem Comment: Newly opening wound. Wound care will follow. Please offload aggressively. Patient extremely high risk due to fecal incotinence and immobility. Bilateral Sacrum Pressure Injury Dressing Type: Open to Air Skin Integrity Problem Comment: No change in area since last week. May not be pressure related, but hyperpigmentation with some hyperkeratosis. Area will declare itsself over the course of the next week. Scrotum Dressing Type: Open to Air Skin Integrity Problem Comment: Moderate to severe IAD with open wounds. Continue use of MAD cream.
[2017-12-28] MEDS ORDERED: FUROSEMIDE 40 MG/4 ML VIAL ONE (14:34)
[2017-12-28] MEDS: LOPERAMIDE HCL 1 MG/5 ML UDL TUBE PRN ×2 (15:53→18:24)
[2017-12-28] MEDS: ORAL BALANCE GEL TUBE PO PRN ×2 (17:49→22:34)
[2017-12-28] MEDS: DEXMEDETOMIDINE HCL 400 MCG in NS 100 ML IV SCH (22:13)
[2017-12-28] MEDS: FAMOTIDINE 20 MG TAB TUBE SCH (22:19)
[2017-12-28] MEDS: MELATONIN 3 MG TAB PO SCH (22:19)
[2017-12-28] MEDS: LIDO/ZINC OX/CLOTRIMAZOLE (MAD) 116 GM CREAM TP PRN (22:36)
[2017-12-29] MEDS: INSULIN LISPRO 100 UNIT/ML SC SCH ×6 (00:58→20:50)
[2017-12-29] MEDS: CEFEPIME HCL 2 GM in STERILE WATER INJ 12.5 ML IV SCH ×3 (05:32→21:00)
[2017-12-29 05:39] LABS: PLATELET COUNT 187 10^3/uL (150-400)
[2017-12-29] MEDS: INSULIN GLARGINE 100 UNITS/ML UNIT SC SCH (09:11)
[2017-12-29] MEDS: FONDAPARINUX SODIUM 2.5 MG/0.5 ML SYR SC SCH (09:11)
[2017-12-29] MEDS: METOPROLOL TARTRATE 25 MG TAB TUBE SCH ×2 (09:12→20:45)
[2017-12-29] MEDS: ACETAMINOPHEN 650 MG/20.3 ML UDCUP TUBE PRN ×2 (09:22→19:15)
[2017-12-29] MEDS: HALOPERIDOL LACT 5 MG/ML INJ IVP PRN ×4 (09:22→23:34)
[2017-12-29] MEDS ORDERED: LORazepam 2 MG/ML INJ IVP PRN (09:22)
[2017-12-29] MEDS: LOPERAMIDE HCL 1 MG/5 ML UDL TUBE PRN ×2 (09:43→11:55)
--- NOTE | 2017-12-29 10:02 | NEUROPROG ---
Assessment: [id number] - Neurology Consult: - CC: F/U for toxic-metabolic encephalopathy - Narrative Summary: Pt found confused at independent living facility on 12/19/17 so he was admitted to [facility]. On admission found to have glucose of >800, severe acidemia (VBG pH 7.14, lactate 4.4), prerenal EVELINA, thrombocytopenia, and hyponatremia in the 160s. He was also in respiratory distress and tested positive for influenza. There was also concern for possible pneumonia. It was also noted the patient had received haloperidol and lorazepam. Dr. Oakes (neurology) saw the patient on 12/26/17 and felt he likely had toxic-metabolic encephalopathy from underlying medical conditions and medications to explain his altered mentation. I initially saw the patient on 12/27/17. He was awake moving all extremities but was not attending to his environment and appeared encephalopathic. - HPI: F/U 12/29/17. Still no significant improvement of suspected toxic-metabolic encephalopathy (TME). I spoke with his nursing with the possibility of obtaining a brain MRI w/ and w/o con followed by a spinal tap if unremarkable. It was felt the patient would likely need significant sedation to perform these studies which can worsen toxic metabolic encephalopathy, increase risk for aspiration (pt with known pulmonary issues and infection), and it did not seem likely to roving changer. Pt was on broad spectrum antibiotics. He had no meningismus (I was able to touch his chin to his chest without him seeming to be in pain) and I do not suspect the brain MRI or spinal tap will roving changer. At this time I recommend treating his known infection and Sepsis ( pt has influenza) and see if when the infection resolves if his mentation improves. 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 DKA, Hyponatremia, EVELINA on admission on 12/19/17 2. Influenza with respiratory issues, pneumonia, Sepsis - 3. Toxic-metabolic encephalopathy: Likely his acute medical issues, multiple medications used to treat his symptoms, and his underlying reduced cognitive reserves have caused him to get a prolonged toxic-metabolic encephalopathy. Treatment is supportive. I spoke with his nursing with the possibility of obtaining a brain MRI w/ and w/o con followed by a spinal tap if unremarkable. It was felt the patient would likely need significant sedation to perform these studies which can worsen toxic metabolic encephalopathy, increase risk for aspiration (pt with known pulmonary issues and infection), and it did not seem likely to roving changer. Pt was on broad spectrum antibiotics. He had no meningismus (I was able to touch his chin to his chest without him seeming to be in pain) and I do not suspect the brain MRI or spinal tap will roving changer. At this time I recommend treating his known infection and Sepsis ( pt has influenza) and see if when the infection resolves if his mentation improves. - Plan: - Agree with hospitalist treatment of underlying conditions - Neurology will continue to follow - 35 min spent with patient and nurse, coordinating care and determining treatment and diagnostic steps. Objective: Vital Signs Temp Pulse Resp BP Pulse Ox 37.2 C 85 26 H 114/78 91 L 12/29/17 08:00 12/29/17 08:00 12/29/17 08:00 12/29/17 08:00 12/29/17 08:00 Microbiology 12/26/17 19:00 - Final Sputum, Expectorated 12/22/17 15:50 Blood Culture - Final Blood 12/22/17 15:30 Blood Culture - Final Blood Laboratory Results 12/29/17 05:25 12/29/17 05:25 12/28/17 12/29/17 12/30/17 05:59 05:59 05:59 Intake Total 3258.2 4238 Output Total 20090 Balance 1248.2 1188 PT 16.9 SEC (12.0-15.0) H 12/24/17 14:00 INR 1.36 (0.83-1.16) H 12/24/17 14:00 Allergies/Adverse Reactions: Unable to Assess Allergy (Verified 12/25/17 04:32)
--- NOTE | 2017-12-29 10:22 | HOSPPROG ---
Hospitalist Progress Note Assessment/Plan: 82-year-old gentleman found confused at his independent living apartment with elevated blood sugars, now Influenza A positive, condition remains guarded # acute hypoxic respiratory failure- 92% on 6 LPM - influenza A positive. CTA neg for PE, b/l patchy infiltrates. CXR this am pers reviewed / interp- increasing infiltrates. MSSA on sputum culture. - cont Cefepime and Flagyl for possible HCAP vs aspiration, day 4/ - cont tamiflu per tube - continue aggressive pulmonary support - aspiration precautions #acute encephalopathy - persists, likely multifactorial but suspect that medications may be playing large role at this point * on precedex overnight * will markedly decrease ativan * increase haldol * small amount of pain meds # Severe sepsis w/ acute hypotension (leukocytosis, tachycardia, elevated lactate, acute renal failure) - bcx NGTD x 2 sets, off pressors # Influenza A with poss PNA complication - PCT 1.5 - cont Tamiflu per tube - abtx as above # tachycardia - Sinus with PAC's / SVT, telemetry personally reviewed and interpreted. Improved with BB. - cont metoprolol # acute thrombocytopenia - platelets 274-> 73-> 159 this am - has received heparin during his stay * HIT negative * restart lovenox # severe hypernatremia- sodium near 170 on arrival * resolved # severe Hyperglycemia- HHS versus DKA. BS > 1000 on arrival - now bg's 200's * cont lantus and SSI #Acute kidney injury - resolved # severe protein calorie malnutrition -Under weight-patient's current weight is 54.4 kg. - cont TF's #FEN - tube feeds #diarrhea - c diff neg - immodium #PPX - lovenox #COR - Now DNR #Care goals - pt's condition not improving. Yeimi does not think he would want to continue life in this state. Consider hospice / comfort care if not improving in next 1-2 days Dispo - cont ICU. He is critically ill requiring close monitoring. I have discussed the case with Dr. Landers and care team Subjective: not much change in mental status Objective: Vital Signs Temp Pulse Resp BP Pulse Ox 37.2 C 74 21 H 90/37 L 93 12/29/17 08:00 12/29/17 10:00 12/29/17 10:00 12/29/17 10:00 12/29/17 10:00 Microbiology 12/26/17 19:00 - Final Sputum, Expectorated 12/22/17 15:50 Blood Culture - Final Blood 12/22/17 15:30 Blood Culture - Final Blood Laboratory Results 12/29/17 05:25 12/29/17 05:25 12/28/17 12/29/17 12/30/17 05:59 05:59 05:59 Intake Total 3258.2 4238 Output Total 2009 3049 Balance 1248.2 1188 PT 16.9 SEC (12.0-15.0) H 12/24/17 14:00 INR 1.36 (0.83-1.16) H 12/24/17 14:00 - Physical Exam Constitutional: no apparent distress, other (agitiated) Cardiovascular: regular rate and rhythym, no murmur, rub, or gallop Respiratory: no respiratory distress, rhonchi Gastrointestinal: normoactive bowel sounds, soft, non-tender abdomen, no palpable masses Skin: warm Neurologic: No AAOx3 Psychiatric: agitated ICD10 Worksheet Patient Problems: Problems Problem Status Onset Atrial fibrillation Acute Hypothermia Acute Non-ketotic hyperosmolar coma Acute
[2017-12-29] MEDS: HYDROmorphone HCL/NS 0.5 MG/ML SYR IVP PRN ×2 (13:07→20:46)
[2017-12-29] MEDS ORDERED: POTASSIUM CL 10 MEQ TAB PO ONE (14:51)
[2017-12-29] MEDS ORDERED: POTASSIUM CL 20 MEQ/15 ML UDCUP TUBE ONE ×2 (15:00→19:30)
--- NOTE | 2017-12-29 16:29 | ASMTCMCOM ---
CM Note CM Note Notes: A family meeting has been set up for tomorrow 12-30-2017 at 12:30 with patient's MDPOA, Yeimi. Yeimi will be on a telephone conference since she lives in [place], [place]. CM will follow. Date Signed: 12/29/2017 04:29 PM Electronically Signed By:Gardenia Blum LCSW
--- NOTE | 2017-12-29 17:58 | PDINTPN ---
Cafeteria Attendant Progress Note Assessment/Plan: Assessment: Influenza: Improved/resolved. Likely has contributed to hypoxemia and delirium , but other factors now involved. Hypoxemic respiratory failure: Due to bilateral pneumonia/atelectasis. Multifactorial, with fluid shifts, Influenza, atelectasis, possible aspiration. Oxygen stable at 6 L however new infiltrates have developed: Possibly secondary to recurrent aspiration, possibly new MSSA pneumonia, but also growing a Pseudomonas organism, collapse, and Serratia. Awaiting sensitivities however these all may be colonizing organisms. Infiltrates possibly related to fluid as well as input significantly had a output over the past number of days. Remains on metronidazole and cefepime. Hypernatremia: Resolved, Sodium 142 today Hyperglycemia: Glucoses better on current regimen of increased Lantus and sliding scale coverage.. Hemodynamics: Resolved hypotension. HR normal. Nutrition: SBFT placed /. Tolerating TFs. Tachycradia: Resolved, still with some ectopy. Delirium/AMS: Persists, without significant improvement. Multifactorial: Toxic metabolic, medications. Possible diffuse neuro injury secondary to prolonged hypoglycemia? Neurologic consultation appreciated. On Precedex at night however still sleeping for only a few hours. Prognosis remains guarded and may be poor. Not responding to current therapies from a cognitive standpoint. Requiring significant care and appears to be suffering to some extent. Definitely will not be able to go back to an assisted living unless something changes. It may be reasonable to transition to comfort care, possibly Hospice? Plan: Continue care in the intensive care unit. Continue supplemental oxygen. Continue Cefepime and Flagyl. Await sensitivities on multiple organisms from his sputum culture, but I suspect contamination. Continue fee H2O for now, follow sodium. Will continue Lasix at increased doses if blood pressure and renal function tolerate. I would like to try to get a neutral fluid balance over the next few days. Continue Lantus again and continue sliding scale insulin. Continue Melatonin and Precedex at night for sleep and agitation. Hold Precedex during the day and increase stimulation/orientation as possible. Follow lab, CXR. Readdress prognosis and consider options, including LTAC, Hospice, comfort care , etc. tomorrow 40 min critical care time spent directly with the patient. Discussed with nursing, hospitalist, ICU multi disciplinary team. Subjective: Moaning, restless, obtunded. Looks to voice. Does not follow commands. Nonverbal. Objective: Vital Signs Temp Pulse Resp BP Pulse Ox 37.7 C 92 22 H 137/51 H 94 12/29/17 16:00 12/29/17 16:00 12/29/17 16:00 12/29/17 16:00 12/29/17 16:00 Microbiology 12/26/17 19:00 - Final Sputum, Expectorated Laboratory Results 12/29/17 05:25 12/29/17 12:30 12/28/17 12/29/17 12/30/17 05:59 05:59 05:59 Intake Total 3258.2 4238 516 Output Total 2009 3050 1100 Balance 1248.2 1188 -584 PT 16.9 SEC (12.0-15.0) H 12/24/17 14:00 INR 1.36 (0.83-1.16) H 12/24/17 14:00 CXR: Infiltrates on the right are somewhat better today. Physical Exam - Physical Exam General Appearance: mild distress (Restless, moaning), thin EENT: EOM palsy (Dysconjugate gaze), other (Nasal cannula at 6 L: 94%. Stable. ) Neck: normal inspection (No JVD) Respiratory: decreased breath sounds (Bilaterally), rales (Rales present at bases), No rhonchi, No wheezing Cardiac/Chest: regular rate, rhythm, systolic murmur, No gallop Abdomen: normal bowel sounds, non-tender, soft, other (Tolerating tube feeding) Male Genitalia: other (Hi catheter in place. Adequate urine output however input greater than output over the last number of days.) Skin: warm/dry, pallor Extremities: pedal edema (Trace +) Neuro/Psych: no motor/sensory deficits (Moves all extremities equally), No cognition abnormalities (Looks to voice only, not following commands) ICD10 Worksheet Patient Problems: Problems Problem Status Onset Non-ketotic hyperosmolar coma Acute Hypothermia Acute Atrial fibrillation Acute
[2017-12-29] MEDS: FAMOTIDINE 20 MG TAB TUBE SCH (20:44)
[2017-12-29] MEDS: MELATONIN 3 MG TAB TUBE SCH (20:44)
[2017-12-29] MEDS: ORAL BALANCE GEL TUBE PO PRN (20:46)
[2017-12-29] MEDS: LIDO/ZINC OX/CLOTRIMAZOLE (MAD) 116 GM CREAM TP PRN (20:47)
[2017-12-29] MEDS ORDERED: OLANZapine 2.5 MG TAB TUBE SCH (21:00)
[2017-12-30] MEDS: INSULIN LISPRO 100 UNIT/ML SC SCH ×6 (01:17→23:03)
[2017-12-30 04:39] LABS: PLATELET COUNT 249 10^3/uL (150-400)
[2017-12-30] MEDS: HALOPERIDOL LACT 5 MG/ML INJ IVP PRN ×3 (04:56→15:10)
[2017-12-30] MEDS: CEFEPIME HCL 2 GM in STERILE WATER INJ 12.5 ML IV SCH ×3 (05:00→21:27)
[2017-12-30] MEDS: LIDO/ZINC OX/CLOTRIMAZOLE (MAD) 116 GM CREAM TP PRN (07:55)
[2017-12-30] MEDS: ENOXAPARIN 40 MG/0.4 ML SYR SC SCH (08:08)
[2017-12-30] MEDS: INSULIN GLARGINE 100 UNITS/ML UNIT SC SCH (08:08)
--- NOTE | 2017-12-30 08:26 | WOCRNPDOC ---
WOCRN Advanced Assessment Note - Skin Integrity Problem, Advanced Assess Nose Pressure Injury Dressing Type: Allevyn Life Wound Bed Constitution: Scab Skin Integrity Problem Comment: no change in wound measurements. Area still scabbed and dry. Unable to stage. Please keep wound moist. Discussed with Ligia ARTEAGA. Silvasorb applied to wound bed. Wound care will round again next week. Scrotum Dressing Type: Open to Air Abimbola Wound Tissue: Erythema, Painful/Tender Skin Integrity Problem Comment: Improved since previous assessment. Continue with plan of care.
[2017-12-30] MEDS: ACETAMINOPHEN 650 MG/20.3 ML UDCUP TUBE PRN ×2 (08:35→17:26)
[2017-12-30] MEDS: LOPERAMIDE HCL 1 MG/5 ML UDL TUBE PRN (08:35)
[2017-12-30] MEDS ORDERED: OLANZapine 2.5 MG TAB PO ONE (09:12)
[2017-12-30] MEDS ORDERED: OLANZapine 2.5 MG TAB PO SCH (09:30)
--- NOTE | 2017-12-30 09:46 | NEUROPROG ---
Assessment: [id number] - Neurology Consult: - CC: F/U for toxic-metabolic encephalopathy - Narrative Summary: Pt found confused at independent living facility on 12/19/17 so he was admitted to [facility]. On admission found to have glucose of >800, severe acidemia (VBG pH 7.14, lactate 4.4), prerenal EVELINA, thrombocytopenia, and hyponatremia in the 160s. He was also in respiratory distress and tested positive for influenza. There was also concern for possible pneumonia. It was also noted the patient had received haloperidol and lorazepam. Dr. Oakes (neurology) saw the patient on 12/26/17 and felt he likely had toxic-metabolic encephalopathy from underlying medical conditions and medications to explain his altered mentation. I initially saw the patient on 12/27/17. He was awake moving all extremities but was not attending to his environment and appeared encephalopathic. - F/U 12/29/17. Still no significant improvement of suspected toxic-metabolic encephalopathy (TME). I spoke with his nursing with the possibility of obtaining a brain MRI w/ and w/o con followed by a spinal tap if unremarkable. It was felt the patient would likely need significant sedation to perform these studies which can worsen toxic metabolic encephalopathy, increase risk for aspiration (pt with known pulmonary issues and infection), and it did not seem likely to exchange engineer. Pt was on broad spectrum antibiotics. He had no meningismus (I was able to touch his chin to his chest without him seeming to be in pain) and I do not suspect the brain MRI or spinal tap will exchange engineer. At this time I recommend treating his known infection and Sepsis ( pt has influenza) and see if when the infection resolves if his mentation improves. - HPI: F/U 12/30/17. Pt laying in bed sleeping. No significant events reported overnight. 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 DKA, Hyponatremia, EVELINA on admission on 12/19/17 2. Influenza with respiratory issues, pneumonia, Sepsis - 3. Toxic-metabolic encephalopathy: Likely his acute medical issues, multiple medications used to treat his symptoms, and his underlying reduced cognitive reserves have caused him to get a prolonged toxic-metabolic encephalopathy. Treatment is supportive. I spoke with his nursing with the possibility of obtaining a brain MRI w/ and w/o con followed by a spinal tap if unremarkable. It was felt the patient would likely need significant sedation to perform these studies which can worsen toxic metabolic encephalopathy, increase risk for aspiration (pt with known pulmonary issues and infection), and it did not seem likely to exchange engineer. Pt was on broad spectrum antibiotics. He had no meningismus (I was able to touch his chin to his chest without him seeming to be in pain) and I do not suspect the brain MRI or spinal tap will exchange engineer. At this time I recommend treating his known infection and Sepsis ( pt has influenza) and see if when the infection resolves if his mentation improves. - Plan: - Agree with hospitalist treatment of underlying conditions - Neurology will sign off but will be happy to become involved if needed - 35 min spent with patient coordinating care and reviewing medical records and evaluating patient. Objective: Vital Signs Temp Pulse Resp BP Pulse Ox 37.7 C 105 H 27 H 80/59 L 95 12/30/17 08:00 12/30/17 08:00 12/30/17 08:00 12/30/17 08:00 12/30/17 08:00 Microbiology 12/26/17 19:00 - Final Sputum, Expectorated Sputum Culture - Final Staphylococcus Aureus Klebsiella Pneumoniae Serratia Marcescens Pseudomonas Aeruginosa Laboratory Results 12/30/17 04:20 12/30/17 04:20 12/29/17 12/30/17 12/31/17 05:59 05:59 05:59 Intake Total 4238 2825 Output Total 3050 2350 Balance 1188 475 PT 16.9 SEC (12.0-15.0) H 12/24/17 14:00 INR 1.36 (0.83-1.16) H 12/24/17 14:00 Allergies/Adverse Reactions: Unable to Assess Allergy (Verified 12/25/17 04:32)
[2017-12-30] MEDS: METOPROLOL TARTRATE 25 MG TAB TUBE SCH ×2 (10:53→21:27)
[2017-12-30] MEDS: OLANZapine 2.5 MG TAB TUBE SCH (10:54)
[2017-12-30] MEDS ORDERED: HYDROmorphone HCL/NS 0.5 MG/ML SYR IVP PRN (11:20)
--- NOTE | 2017-12-30 13:32 | PDINTPN ---
Intermediate Frame Tender Progress Note Assessment/Plan: Assessment: Influenza: Improved/resolved. Likely has contributed to hypoxemia and delirium , but other factors now involved. Hypoxemia/pneumonia/respiratory failure: Bilateral infiltrates/atelectasis present on admission. Multifactorial, with fluid shifts, Influenza, atelectasis , possible aspiration. Oxygen stable at 6 L, however new infiltrates have developed 12/27: Possibly secondary to recurrent aspiration, possibly new MSSA pneumonia, but also growing a Pseudomonas organism (sensitive to cefepime), Proteus, and Serratia. Awaiting further sensitivities. Infiltrates possibly related to fluid as well as input significantly ahead output over the past number of days. Hypernatremia: Resolved, last Sodium 142. Follow intermittently Hyperglycemia: Glucoses will control on current regimen of increased Lantus and sliding scale coverage.. Hemodynamics: Resolved hypotension. Nutrition: SBFT placed 12/24. Tolerating TFs. Tachycradia: Sinus, low 100s to regular rate and rhythm. Delirium/AMS: Persists, without significant improvement. Multifactorial: Toxic metabolic, medications. Possible diffuse neuro injury secondary to prolonged hyperglycemia? Neurologic consultation appreciated. Has been on Precedex at night, low-dose intermittent Ativan, and now Haldol in p.r.n. Dilaudid. Prognosis remains guarded and may be poor. Not responding to current therapies from a cognitive standpoint. Requiring significant care and appears to be suffering to some extent. Definitely will not be able to go back to an assisted living unless something changes. It may be reasonable to transition to comfort care, possibly Hospice, but medication adjustments in continued observation felt to be indicated at this time. Plan: Continue care in the intensive care unit. Continue supplemental oxygen. Continue Cefepime and Flagyl. Await further sensitivities on multiple organisms from his sputum culture, but I suspect contamination. Continue fee H2O for now, follow sodium. Will continue Lasix if blood pressure and renal function tolerate. I would like to try to get a neutral fluid balance over the next few days. Continue Lantus and sliding scale insulin. Precedex and Ativan to be discontinued altogether. Follow lab, CXR. Readdress prognosis and consider options, including LTAC, Hospice, comfort care , etc. On a daily basis. Will wait several days, perhaps early next week, to decide if sedating medications possibly have been playing a role. Body Coverer did discuss issues with the patient's power of energy attorney today. 30 min critical care time spent directly with the patient. Discussed with nursing, hospitalist, ICU multi disciplinary team. Subjective: No changes last 24 hr. Looks to voice. Unresponsive. Objective: Vital Signs Temp Pulse Resp BP Pulse Ox 37.3 C 80 20 113/61 93 12/30/17 11:45 12/30/17 11:45 12/30/17 11:45 12/30/17 11:45 12/30/17 11:45 Microbiology 12/26/17 19:00 - Final Sputum, Expectorated Sputum Culture - Final Staphylococcus Aureus Klebsiella Pneumoniae Serratia Marcescens Pseudomonas Aeruginosa Laboratory Results 12/30/17 04:20 12/30/17 04:20 12/29/17 12/30/17 12/31/17 05:59 05:59 05:59 Intake Total 4238 2825 Output Total 3050 2350 Balance 1188 475 PT 16.9 SEC (12.0-15.0) H 12/24/17 14:00 INR 1.36 (0.83-1.16) H 12/24/17 14:00 Laboratory Tests 12/30/17 12/30/17 04:20 06:06 pCO2 22 L pO2 66 ABG pH 7.45 Total O2 Concentration 6.0 Ammonia 13.0 Physical Exam - Physical Exam General Appearance: unresponsive (Looks to voice, nonverbal, won't follow commands were nod head), thin, No WD/WN (Unchanged) EENT: PERRL/EOMI, other (annula at 6 L comma NG in place) Neck: normal inspection (No JVD) Respiratory: lungs clear, decreased breath sounds (At bases), rales (Few, nonspecific), No respiratory distress, No rhonchi, No wheezing Cardiac/Chest: tachycardia (Sinus, systolic murmur), No gallop Abdomen: normal bowel sounds, non-tender, soft, other (Tolerating tube feeding) Male Genitalia: other (Hi catheter in place. Input greater than output but less so today) Skin: normal color Extremities: pedal edema (Trace +) Neuro/Psych: no motor/sensory deficits (Moves all extremities equally), cognition abnormalities (Unresponsive as noted above) ICD10 Worksheet Patient Problems: Problems Problem Status Onset Non-ketotic hyperosmolar coma Acute Hypothermia Acute Atrial fibrillation Acute
--- NOTE | 2017-12-30 13:48 | HOSPPROG ---
Hospitalist Progress Note Assessment/Plan: 82-year-old gentleman found confused at his independent living apartment with elevated blood sugars, now Influenza A positive, condition remains guarded # acute hypoxic respiratory failure- 92% on 6 LPM - influenza A positive. CTA neg for PE, b/l patchy infiltrates. CXR this am pers reviewed / interp- increasing infiltrates. MSSA on sputum culture. - cont Cefepime and Flagyl for possible HCAP vs aspiration, day 5/7 - continue aggressive pulmonary support - aspiration precautions #acute encephalopathy - persists, likely multifactorial but suspect that medications may be playing large role at this point * was on fairly significant amounts of ativan prior to yesterday * would like to see if he clears off Ativan * didn't sleep overnight with zyprexa 2.5 mg - will try 5 mg * Zyprexa 2.5 mg today seemed to sedate him too much - will dc # Severe sepsis w/ acute hypotension (leukocytosis, tachycardia, elevated lactate, acute renal failure) - bcx NGTD x 2 sets, off pressors # Influenza A with poss PNA complication - PCT 1.5 - cont Tamiflu per tube - abtx as above # tachycardia - Sinus with PAC's / SVT, telemetry personally reviewed and interpreted. Improved with BB. - cont metoprolol - heart rate is better when not agitated # acute thrombocytopenia - platelets 274-> 73-> 159 this am - has received heparin during his stay * HIT negative * restart lovenox # severe hypernatremia- sodium near 170 on arrival * resolved # severe Hyperglycemia- HHS versus DKA. BS > 1000 on arrival - now bg's 200's * cont lantus and SSI #Acute kidney injury - resolved # severe protein calorie malnutrition -Under weight-patient's current weight is 54.4 kg. - cont TF's #FEN - tube feeds #diarrhea - c diff neg - immodium #PPX - lovenox #COR - Now DNR #Care goals - pt's condition not improving. However I believe that encephalopathy could be explained by medications. In discussion with medical proxy Yeimi - pt did not have dementia at baseline and was living independently although he was close to needing assisted living. Would like to give him a couple days off Ativan to see if he clears before transitioning to hospice/ comfort care I have discussed the case with Dr. Landers and care team Subjective: didn't sleep well overnight. agitated this morning but better with am zyprexa Objective: Vital Signs Temp Pulse Resp BP Pulse Ox 37.3 C 80 20 113/61 93 12/30/17 11:45 12/30/17 11:45 12/30/17 11:45 12/30/17 11:45 12/30/17 11:45 Microbiology 12/26/17 19:00 - Final Sputum, Expectorated Sputum Culture - Final Staphylococcus Aureus Klebsiella Pneumoniae Serratia Marcescens Pseudomonas Aeruginosa Laboratory Results 12/30/17 04:20 12/30/17 04:20 12/29/17 12/30/17 12/31/17 05:59 05:59 05:59 Intake Total 4238 2825 Output Total 3050 2350 Balance 1188 475 PT 16.9 SEC (12.0-15.0) H 12/24/17 14:00 INR 1.36 (0.83-1.16) H 12/24/17 14:00 - Time Spent With Patient Time Spent with Patient: greater than 35 minutes (discussion of end of life goals) Time Spent with Patient: Greater than 35 minutes spent on this patients care, greater than 50% of time spent counseling, educating, and coordinating care regarding the above mentioned plan. - Physical Exam Constitutional: no apparent distress, appears nourished, not in pain Eyes: anicteric sclera, EOMI Cardiovascular: regular rate and rhythym, no murmur, rub, or gallop Respiratory: no respiratory distress, no rales or rhonchi Gastrointestinal: normoactive bowel sounds, soft, non-tender abdomen, no palpable masses Neurologic: other, No AAOx3 Psychiatric: encephalopathic, agitated ICD10 Worksheet Patient Problems: Problems Problem Status Onset Atrial fibrillation Acute Hypothermia Acute Non-ketotic hyperosmolar coma Acute
--- NOTE | 2017-12-30 14:07 | ASMTCMCOM ---
CM Note CM Note Notes: Consulted with Dr. Landers and Dr. Burrows regarding recommendations for going forward with patient's medical care. Dr. Burrows to make some medication changes to determine if their might be some improvement in patient's cognitive abilities. Comfort measures vs. more medical intervention is being considered. Family meeting was held with Yeimi, patient's MDPOA, Antonella Robles, Scuba Dive Training Instructor, and myself. We informed Yeimi of Dr. Burrows making some medication changes to see if patient cognitively improves. Yeimi states patient would want quality of life and has only a few things left he enjoys. Patient enjoys reading, intellectual conversation and his home caregivers from [facility] who have been involved with the patient for the past 3 years. Currently, d/c plan may be hospice support or SNF placement. We will contact Yeimi on Wednesday to update and make decisions. Yeimi requested Dr. Burrows give her a call about the medication changes. This request was passed on to Dr. Burrows. CM will follow. Date Signed: 12/30/2017 02:06 PM Electronically Signed By:Gardenia Blum LCSW
[2017-12-30] MEDS: ORAL BALANCE GEL TUBE PO PRN (15:10)
[2017-12-30] MEDS: FUROSEMIDE 20 MG/2 ML VIAL IVP SCH (15:11)
[2017-12-30] MEDS: MELATONIN 3 MG TAB TUBE SCH (21:27)
[2017-12-30] MEDS: OLANZapine 5 MG TAB TUBE SCH (21:27)
[2017-12-30] MEDS: FAMOTIDINE 20 MG TAB TUBE SCH (21:27)
[2017-12-31] MEDS: INSULIN LISPRO 100 UNIT/ML SC SCH ×6 (02:05→21:39)
[2017-12-31 04:41] LABS: PLATELET COUNT 268 10^3/uL (150-400)
[2017-12-31] MEDS: CEFEPIME HCL 2 GM in STERILE WATER INJ 12.5 ML IV SCH ×3 (07:18→21:33)
--- NOTE | 2017-12-31 08:51 | HOSPPROG ---
Hospitalist Progress Note Assessment/Plan: #Acute sepsis: due to Flu A and PNA #Acute encephalopathy: min improvement in mental status. Holding Precedex/ Benzos. Reassess mental status. CTH was negative. TSH, B12 pending #HCAP: MSSA, Klebs. Cefepime/Flagyl for possible aspiration #Acute hypoxic resp failure: due to PNA #Acute tachycardia: resolved #Hypotension: resolved #Thrombocytopenia: resolved. Due to acute illness #Significant hypernatremia: resolved #Hyperglycemia: increase Glargine to 35 units in morning #Diet: tubes feeds #Diarrhea: related to TFs, negative C diff. Immodium #DVT ppx: Lovenox #Goals: has a friend of 50 yrs that is MDPOA. States that he has been declining for last several months and would not want to live like this. Need to continue conversations Subjective: will follow simple commands like closing eyes and wiggling hands Objective: Vital Signs Temp Pulse Resp BP Pulse Ox 37.6 C 92 23 H 113/54 L 96 12/31/17 06:00 12/31/17 06:00 12/31/17 06:00 12/31/17 06:00 12/31/17 06:00 Microbiology 12/26/17 19:00 - Final Sputum, Expectorated Sputum Culture - Final Staphylococcus Aureus Klebsiella Pneumoniae Serratia Marcescens Pseudomonas Aeruginosa Laboratory Results 12/31/17 04:30 12/31/17 04:30 12/30/17 12/31/17 01/01/18 05:59 05:59 05:59 Intake Total 2825 2612 Output Total 2350 4075 Balance 475 -1463 PT 16.9 SEC (12.0-15.0) H 12/24/17 14:00 INR 1.36 (0.83-1.16) H 12/24/17 14:00 - Physical Exam Constitutional: uncomfortable Eyes: PERRL Ears, Nose, Mouth, Throat: moist mucous membranes Cardiovascular: regular rate and rhythym Respiratory: rhonchi Gastrointestinal: normoactive bowel sounds Genitourinary: patel in urethra, other (rectal tube) Skin: warm Musculoskeletal: other (hands in mitts) Neurologic: CN II-XII Intact Psychiatric: encephalopathic ICD10 Worksheet Patient Problems: Problems Problem Status Onset Atrial fibrillation Acute Hypothermia Acute Non-ketotic hyperosmolar coma Acute
[2017-12-31] MEDS ORDERED: POTASSIUM Cl (KCl) 100 ML IV SCH (09:00)
[2017-12-31] MEDS ORDERED: POTASSIUM CL 20 MEQ/15 ML UDCUP TUBE ONE (09:30)
[2017-12-31] MEDS: ENOXAPARIN 40 MG/0.4 ML SYR SC SCH (09:55)
[2017-12-31] MEDS: FUROSEMIDE 20 MG/2 ML VIAL IVP SCH (09:56)
[2017-12-31] MEDS: OLANZapine 2.5 MG TAB TUBE SCH (09:56)
[2017-12-31] MEDS: METOPROLOL TARTRATE 25 MG TAB TUBE SCH ×2 (09:56→21:30)
[2017-12-31] MEDS: INSULIN GLARGINE 100 UNITS/ML UNIT SC SCH (09:58)
[2017-12-31] MEDS: ACETAMINOPHEN 650 MG/20.3 ML UDCUP TUBE PRN ×2 (10:11→16:52)
[2017-12-31] MEDS ORDERED: INSULIN REGULAR HUMAN 100 UNIT in NS 100 ML IV SCH (10:30)
[2017-12-31] MEDS: LOPERAMIDE HCL 1 MG/5 ML UDL TUBE SCH ×3 (14:06→21:30)
--- NOTE | 2017-12-31 14:12 | PDINTPN ---
Software Development Intern Progress Note Assessment/Plan: Assessment: Influenza: Improved/resolved. Likely contributed initially to hypoxemia and delirium, but other factors now involved. Hypoxemia/pneumonia/respiratory failure: Bilateral infiltrates/atelectasis present on admission. Multifactorial, secondary to fluid shifts, Influenza, atelectasis, possible aspiration. Oxygen now stable at 6 L, however new infiltrates developed 12/27: Possibly secondary to recurrent aspiration, possibly new MSSA pneumonia, but also growing a Pseudomonas organism (sensitive to cefepime), Proteus, and Serratia. However, respiratory status has not decompensated. Infiltrates possibly related to fluid as well, as input significantly ahead of output. Better over the last 24 hr with Lasix. On cefepime and Flagyl. Hypernatremia: Resolved,Sodium 142. Follow intermittently Hyperglycemia: Glucoses will control on current regimen of Lantus and sliding scale coverage. Hemodynamics: Resolved hypotension. Nutrition: SBFT placed 12/24. Tolerating TFs. Tachycradia: Sinus, low 100s to regular rate and rhythm. Delirium/AMS: Persists, but significantly improved today. Stopping Ativan and Precedex associated with this improvement, as well as time.. Multifactorial: Toxic metabolic, medications. Neurologic consultation found no underlying abnormality. Currently on p.r.n. Dilaudid alone. Prognosis remains guarded and may be poor, however with improvement in mental status today continued therapy and current level of care seems appropriate. He likely will not be able to go back to his assisted living. A long-time friend and medical power of managing attorney who lives in [place] is involved. It may be reasonable to transition to comfort care, possibly Hospice, if continued significant improvement is not possible. Plan: Continue care in the intensive care unit. Continue supplemental oxygen. Continue Cefepime and Flagyl. Await further sensitivities on multiple organisms from his sputum culture, but I suspect contamination. Will continue Lasix if blood pressure and renal function tolerate to get a neutral fluid balance. Continue Lantus and sliding scale insulin. Continue p.r.n. Haldol and Dilaudid. Follow lab, CXR. Plan is to continue present care there over the weekend and re-evaluate Wednesday. 35 min critical care time spent directly with the patient. Discussed with nursing, hospitalist, ICU multi disciplinary team. Subjective: Less restless today and starting to have some verbal response. Did receive some Dilaudid. Has had no further Ativan comma Precedex or Haldol. Objective: Vital Signs Temp Pulse Resp BP Pulse Ox 37.3 C 75 14 101/54 L 97 12/31/17 12:00 12/31/17 12:00 12/31/17 12:00 12/31/17 12:00 12/31/17 12:00 Microbiology 12/26/17 19:00 - Final Sputum, Expectorated Sputum Culture - Final Staphylococcus Aureus Klebsiella Pneumoniae Serratia Marcescens Pseudomonas Aeruginosa Laboratory Results 12/31/17 04:30 12/31/17 04:30 12/30/17 12/31/17 01/01/18 05:59 05:59 05:59 Intake Total 2825 2612 Output Total 2350 4075 Balance 475 -1463 PT 16.9 SEC (12.0-15.0) H 12/24/17 14:00 INR 1.36 (0.83-1.16) H 12/24/17 14:00 Physical Exam - Physical Exam General Appearance: mild distress (Less restless), thin, other (Opens eyes to voice, trying to talk but I cannot understand him. Mitts in place.) EENT: PERRL/EOMI, other (Nasal cannula at 6 L, no change. NG tube in place) Neck: normal inspection (No JVD) Respiratory: lungs clear (Anteriorly), decreased breath sounds (At bases), rales (Few, scattered), No rhonchi, No wheezing Cardiac/Chest: regular rate, rhythm, tachycardia (At times), systolic murmur, No gallop Abdomen: normal bowel sounds, non-tender, soft, other (Tolerating tube feeding) Male Genitalia: other (Hi catheter in place, improved urine output over the last 24 hr with Lasix.) Rectal: other (Rectal tube in place secondary to diarrhea) Skin: warm/dry, pallor, other (Excoriated in the perineal area, grade 1 pressure sore over coccyx) Extremities: pedal edema Neuro/Psych: no motor/sensory deficits (Moves all extremities equally), cognition abnormalities (Improving, now having some verbal responses, trying to talk.) ICD10 Worksheet Patient Problems: Problems Problem Status Onset Non-ketotic hyperosmolar coma Acute Hypothermia Acute Atrial fibrillation Acute
[2017-12-31] MEDS: HYDROmorphone HCL/NS 0.5 MG/ML SYR IVP PRN (14:31)
[2017-12-31] MEDS: ORAL BALANCE GEL TUBE PO PRN (16:52)
[2017-12-31] MEDS: OLANZapine 2.5 MG TAB TUBE PRN (16:54)
[2017-12-31] MEDS: MELATONIN 3 MG TAB TUBE SCH (21:30)
[2017-12-31] MEDS: FAMOTIDINE 20 MG TAB TUBE SCH (21:30)
[2017-12-31] MEDS: OLANZapine 5 MG TAB TUBE SCH (21:31)
[2018-01-01] MEDS: INSULIN LISPRO 100 UNIT/ML SC SCH ×6 (00:51→22:05)
[2018-01-01] MEDS: LOPERAMIDE HCL 1 MG/5 ML UDL TUBE SCH ×4 (04:48→22:04)
[2018-01-01] MEDS: CEFEPIME HCL 2 GM in STERILE WATER INJ 12.5 ML IV SCH ×3 (04:49→22:04)
[2018-01-01] MEDS: ENOXAPARIN 40 MG/0.4 ML SYR SC SCH (08:13)
[2018-01-01] MEDS: METOPROLOL TARTRATE 25 MG TAB TUBE SCH ×2 (08:14→22:04)
[2018-01-01] MEDS: FUROSEMIDE 20 MG/2 ML VIAL IVP SCH (08:14)
[2018-01-01] MEDS: INSULIN GLARGINE 100 UNITS/ML UNIT SC SCH (08:50)
--- NOTE | 2018-01-01 13:18 | HOSPPROG ---
Hospitalist Progress Note Assessment/Plan: #Acute sepsis: due to Flu A and PNA #Acute metabolic encephalopathy: min improvement in mental status. Holding Precedex/Benzos. Reassess mental status. CTH was negative. NL TSH, B12. Evaluated by Neuro and unable to do MRI with agitation and source likely metabolic. #HCAP: MSSA, Klebs. Cefepime/Flagyl for possible aspiration #Acute hypoxic resp failure: due to PNA #Acute tachycardia: resolved #Hypokalemia: repleted #Hypotension: resolved #Thrombocytopenia: resolved. Due to acute illness #Significant hypernatremia: resolved #Hyperglycemia: increase Glargine to 35 units in morning #Diet: tubes feeds #Diarrhea: related to TFs, negative C diff. Immodium #DVT ppx: Lovenox #Goals: has a friend of 50 yrs that is MDPOA. States that he has been declining for last several months and would not want to live like this. Need to continue conversations. If not improved, mostly likely pursue comfort measures. Discussed with Dr. Landers Subjective: no acute events Objective: Vital Signs Temp Pulse Resp BP Pulse Ox 37.6 C 77 20 99/49 L 94 01/01/18 10:00 01/01/18 10:00 01/01/18 10:00 01/01/18 10:00 01/01/18 10:00 Laboratory Results 01/01/18 04:00 01/01/18 04:00 12/31/17 01/01/18 01/02/18 05:59 05:59 06:59 Intake Total 2612 1650 Output Total 4075 2750 Balance -1463 -1100 PT 16.9 SEC (12.0-15.0) H 12/24/17 14:00 INR 1.36 (0.83-1.16) H 12/24/17 14:00 - Physical Exam Constitutional: no apparent distress Eyes: PERRL Ears, Nose, Mouth, Throat: moist mucous membranes Cardiovascular: regular rate and rhythym, no murmur, rub, or gallop Respiratory: no respiratory distress Gastrointestinal: normoactive bowel sounds Genitourinary: patel in urethra, other (rectal tube in place) Skin: warm Neurologic: CN II-XII Intact, other (will close eyes, stick out tongue. Garbled speech) ICD10 Worksheet Patient Problems: Problems Problem Status Onset Atrial fibrillation Acute Hypothermia Acute Non-ketotic hyperosmolar coma Acute
--- NOTE | 2018-01-01 14:18 | PDINTPN ---
Cost Estimating Engineer Progress Note Assessment/Plan: Assessment: Influenza: Resolved. Likely contributed initially to hypoxemia and delirium, but other factors now involved. Hypoxemia/pneumonia/respiratory failure: Bilateral infiltrates/atelectasis present on admission. Multifactorial, secondary to fluid shifts, Influenza, atelectasis, and possible aspiration. He developed new infiltrates developed 12/27: Possibly secondary to recurrent aspiration, fluid overload or possibly new MSSA pneumonia, but also growing a Pseudomonas organism (sensitive to cefepime) , Proteus, and Serratia from a sputum culture. However, respiratory status was not decompensated. Chest x-ray is now improving an oxygen requirements have decreased from 6 L to 4 L. On cefepime and Flagyl. Hypernatremia: Resolved, Sodium 141. Follow intermittently Hyperglycemia: Glucoses are adequately controlled on current regimen of Lantus and sliding scale coverage. Hemodynamics: Resolved hypotension. Nutrition: SBFT placed 12/24. Tolerating TFs. Tachycradia: Sinus, low 100s to regular rate and rhythm. Delirium/AMS: Persists, but significantly improved. Stopping Ativan and Precedex associated with this improvement, as well as time. Multifactorial: Toxic metabolic, medications. Neurologic consultation found no underlying abnormality. Currently on p.r.n. Dilaudid for pain and p.r.n. Haldol if needed. Prognosis remains guarded and may be poor, however with improvement in mental status over the last few days continued therapy and current level of care seems appropriate. He likely will not be able to go back to his assisted living. A long-time friend and medical power of valve inserter who lives in [place] is involved. It may be reasonable to transition to comfort care, possibly Hospice , if continued significant improvement is not possible. Plan: Continue supportive care in the intensive care unit. Continue supplemental oxygen. Continue Cefepime and Flagyl. Will continue Lasix intermittently if blood pressure and renal function tolerate to get a neutral fluid balance. Continue Lantus and sliding scale insulin. Continue p.r.n. Haldol and Dilaudid. Follow lab, CXR. The plan is to continue to provide the current level of supportive care through the weekend and re-evaluate on Wednesday, avoiding Ativan, Precedex and other similar medications. Dilaudid should be continued at as low a dose as possible to provide pain relief, and use Haldol only for agitation. 30 min critical care time spent directly with the patient. Discussed with nursing, hospitalist, ICU multi disciplinary team. Subjective: Looks to voice, tries to talk. Slightly less responsive, more lethargic today. Objective: Vital Signs Temp Pulse Resp BP Pulse Ox 37.6 C 77 20 99/49 L 94 01/01/18 10:00 01/01/18 10:00 01/01/18 10:00 01/01/18 10:00 01/01/18 10:00 Laboratory Results 01/01/18 04:00 01/01/18 04:00 12/31/17 01/01/18 01/02/18 05:59 05:59 06:59 Intake Total 2612 1650 Output Total 4075 2750 Balance -1463 -1100 PT 16.9 SEC (12.0-15.0) H 12/24/17 14:00 INR 1.36 (0.83-1.16) H 12/24/17 14:00 CXR: Decreasing pulmonary infiltrates Physical Exam - Physical Exam General Appearance: thin, other (Somnolent, arouses, appears comfortable.) EENT: PERRL/EOMI, other (Nasal cannula at 4 L, decreased) Neck: normal inspection (No obvious JVD) Respiratory: lungs clear, decreased breath sounds (At bases), rales (Few rales bilaterally), No respiratory distress, No rhonchi, No wheezing Cardiac/Chest: regular rate, rhythm Abdomen: normal bowel sounds, non-tender, soft, other (Tolerating tube feeding) Male Genitalia: other (Hi catheter in place, good urine output. Output greater than input again for the last 24 hr with Lasix.) Skin: warm/dry, pallor Extremities: pedal edema (Trace +) Neuro/Psych: no motor/sensory deficits (Moves extremities equally bilaterally, but weak), cognition abnormalities (Looks to voice, tries to mouth words but he is more lethargic today compared to yesterday.) ICD10 Worksheet Patient Problems: Problems Problem Status Onset Non-ketotic hyperosmolar coma Acute Hypothermia Acute Atrial fibrillation Acute
--- NOTE | 2018-01-01 15:40 | ASMTCMCOM ---
CM Note CM Note Notes: Chart reviewed. Patient in hyperosmolar coma. No sedation through weekend to assess any increase in responsiveness, IESHA Jalloh lives in [facility]. If no improvement in cognition/function after weekend will revisit disposition and plan of care. CM to follow, Date Signed: 01/01/2018 03:39 PM Electronically Signed By:Fiordaliza Olmstead RN
[2018-01-01] MEDS: MELATONIN 3 MG TAB TUBE SCH (22:04)
[2018-01-01] MEDS: FAMOTIDINE 20 MG TAB TUBE SCH (22:05)
[2018-01-01] MEDS: OLANZapine 5 MG TAB TUBE SCH (22:22)
[2018-01-02] MEDS: INSULIN LISPRO 100 UNIT/ML SC SCH ×6 (00:50→21:04)
[2018-01-02] MEDS: CEFEPIME HCL 2 GM in STERILE WATER INJ 12.5 ML IV SCH ×3 (06:00→21:26)
[2018-01-02] MEDS: ALTEPLASE 2 MG VIAL IVP PRN (06:01)
[2018-01-02] MEDS: LOPERAMIDE HCL 1 MG/5 ML UDL TUBE SCH ×4 (06:01→21:32)
[2018-01-02] MEDS: FUROSEMIDE 20 MG/2 ML VIAL IVP SCH (09:22)
[2018-01-02] MEDS: ENOXAPARIN 40 MG/0.4 ML SYR SC SCH (09:22)
[2018-01-02] MEDS: METOPROLOL TARTRATE 25 MG TAB TUBE SCH ×2 (09:22→21:02)
[2018-01-02] MEDS: INSULIN GLARGINE 100 UNITS/ML UNIT SC SCH (09:23)
[2018-01-02] MEDS ORDERED: INSULIN GLARGINE 100 UNITS/ML UNIT SC SCH (13:06)
--- NOTE | 2018-01-02 13:07 | HOSPPROG ---
Hospitalist Progress Note Assessment/Plan: #Acute sepsis: resolved. Due to Flu A and PNA #Acute metabolic encephalopathy: improved mental status mildly. Holding Precedex /Benzos. Reassess mental status. CTH was negative. NL TSH, B12. Evaluated by Neuro and unable to do MRI with agitation and source likely metabolic. #HCAP: MSSA, Klebs. Cefepime/Flagyl for 14 days #Acute hypoxic resp failure: due to PNA #Acute tachycardia: resolved #Hypokalemia: repleted #Hypotension: resolved #Thrombocytopenia: resolved. Due to acute illness #Significant hypernatremia: resolved #Hyperglycemia: required significant SSI. Increase glargine 45 units #Diet: tubes feeds #Diarrhea: related to TFs, negative C diff. Immodium scheduled #DVT ppx: Lovenox #Goals: has a friend of 50 yrs that is MDPOA. States that he has been declining for last several months and would not want to live like this. Need to continue conversations. If not improved, mostly likely pursue comfort measures. Discussed with Dr. Landers Subjective: following a few commands with RN Objective: Vital Signs Temp Pulse Resp BP Pulse Ox 37.0 C 81 24 H 112/58 L 93 01/02/18 12:00 01/02/18 12:00 01/02/18 12:00 01/02/18 12:00 01/02/18 12:00 Laboratory Results 01/01/18 04:00 01/02/18 04:30 01/01/18 01/02/18 01/03/18 04:59 05:59 05:59 Intake Total 905 Output Total Balance 905 PT 16.9 SEC (12.0-15.0) H 12/24/17 14:00 INR 1.36 (0.83-1.16) H 12/24/17 14:00 - Physical Exam Constitutional: no apparent distress Eyes: PERRL Ears, Nose, Mouth, Throat: moist mucous membranes Cardiovascular: regular rate and rhythym Respiratory: rhonchi Gastrointestinal: normoactive bowel sounds, soft, non-tender abdomen Genitourinary: no bladder fullness Skin: warm Musculoskeletal: full muscle strength Neurologic: CN II-XII Intact Psychiatric: encephalopathic (will follow some commands intermittently) ICD10 Worksheet Patient Problems: Problems Problem Status Onset Atrial fibrillation Acute Hypothermia Acute Non-ketotic hyperosmolar coma Acute
[2018-01-02] MEDS ORDERED: INSULIN GLARGINE 100 UNITS/ML UNIT SC ONE (14:32)
--- NOTE | 2018-01-02 15:27 | PDINTPN ---
Creative Intern Progress Note Assessment/Plan: Assessment: Influenza: Resolved. Likely contributed initially to hypoxemia and delirium, but other factors now involved. Hypoxemia/pneumonia/respiratory failure: Bilateral infiltrates/atelectasis present on admission. Multifactorial, secondary to fluid shifts, Influenza, atelectasis, and possible aspiration. He developed new infiltrates developed 12/27: Possibly secondary to recurrent aspiration, fluid overload or possibly new MSSA pneumonia, but also growing a Pseudomonas organism (sensitive to cefepime) , Proteus, and Serratia from a sputum culture. However, respiratory status was not decompensated. Chest x-ray is now improving an oxygen requirements have decreased from 6 L to 4 L. On cefepime and Flagyl. Hypernatremia: Resolved, Sodium 141. Follow intermittently Hyperglycemia: Glucoses high at times. On Lantus and sliding scale coverage. Hemodynamics: Resolved hypotension. Nutrition: SBFT placed 12/24. TFs at goal. Tachycradia: Resolved for the most part. Regular rate now. Delirium/AMS: Significantly improved. Stopping Ativan and Precedex associated with this improvement, as well as time. Multifactorial: Toxic metabolic, medications. Neurologic consultation found no underlying abnormality. Currently on p.r.n. Dilaudid for pain and p.r.n. Haldol if needed, but not requiring much currently. Prognosis remains guarded and may be poor, however with improvement in mental status over the last few days continued therapy and current level of care seems appropriate. He likely will not be able to go back to his assisted living. A long-time friend and medical power of ip technology transactions attorney who lives in [place] is involved. It may be reasonable to transition to comfort care, possibly Hospice , if continued significant improvement is not possible. Plan: Continue supportive care in the intensive care unit. Continue supplemental oxygen. Continue Cefepime and Flagyl times a total of 10 days. Day 7 today. Will re-culture sputum by nasotracheal suction today. Will continue Lasix intermittently if blood pressure and renal function tolerate to get a neutral fluid balance. Increase Lantus, continue sliding scale insulin. Continue Haldol and Dilaudid at low doses if needed. Follow lab, CXR in a.m.. The plan is to continue to provide the current level of supportive care through this weekend and re-evaluate on Wednesday, avoiding Ativan, Precedex and other similar medications. Dilaudid should be continued at as low a dose as possible to provide pain relief, and use Haldol only for agitation. 25 min critical care time spent directly with the patient. Discussed with nursing, hospitalist, ICU multi disciplinary team. Subjective: Calm, more alert. Answering simple questions appropriately. Hard to understand when he tries to talk. May have stated his age correctly when asked. Denies pain Objective: Vital Signs Temp Pulse Resp BP Pulse Ox 37.2 C 87 27 H 103/53 L 94 01/02/18 14:00 01/02/18 14:00 01/02/18 14:00 01/02/18 14:00 01/02/18 14:00 Laboratory Results 01/01/18 04:00 01/02/18 04:30 01/01/18 01/02/18 01/03/18 04:59 05:59 05:59 Intake Total 905 Output Total Balance 905 PT 16.9 SEC (12.0-15.0) H 12/24/17 14:00 INR 1.36 (0.83-1.16) H 12/24/17 14:00 Physical Exam - Physical Exam General Appearance: no apparent distress, thin, other (Comma tries to respond. Mitts in place) EENT: PERRL/EOMI, other (Nasal cannula at 4 L) Neck: normal inspection (No obvious JVD) Respiratory: lungs clear (Anteriorly), decreased breath sounds (At bases), rhonchi (Some central rhonchi/congestion with cough), No rales, No wheezing Cardiac/Chest: regular rate, rhythm, systolic murmur, No gallop Abdomen: normal bowel sounds, non-tender, soft, other (Tolerating tube feedings at goal. Rectal tube remains in place) Male Genitalia: other (Hi catheter in place, good urine output. Input equals output last 24 hr.) Skin: warm/dry, pallor Extremities: pedal edema (Trace +) Neuro/Psych: no motor/sensory deficits (Appears to move all extremities equally) , cognition abnormalities (Improving) ICD10 Worksheet Patient Problems: Problems Problem Status Onset Non-ketotic hyperosmolar coma Acute Hypothermia Acute Atrial fibrillation Acute
[2018-01-02] MEDS: MELATONIN 3 MG TAB TUBE SCH (21:02)
[2018-01-02] MEDS: FAMOTIDINE 20 MG TAB TUBE SCH (21:02)
[2018-01-02] MEDS: OLANZapine 5 MG TAB TUBE SCH (21:31)
[2018-01-03] MEDS: INSULIN LISPRO 100 UNIT/ML SC SCH ×5 (01:38→15:51)
[2018-01-03] MEDS: LOPERAMIDE HCL 1 MG/5 ML UDL TUBE SCH ×3 (05:12→15:53)
[2018-01-03] MEDS: CEFEPIME HCL 2 GM in STERILE WATER INJ 12.5 ML IV SCH ×2 (05:13→14:20)
[2018-01-03] MEDS: HYDROmorphone HCL/NS 0.5 MG/ML SYR IVP PRN (06:02)
[2018-01-03] MEDS: METOPROLOL TARTRATE 25 MG TAB TUBE SCH (08:57)
[2018-01-03] MEDS: FUROSEMIDE 20 MG/2 ML VIAL IVP SCH (08:58)
[2018-01-03] MEDS ORDERED: INSULIN GLARGINE 100 UNITS/ML UNIT SC SCH (09:00)
[2018-01-03] MEDS: ENOXAPARIN 40 MG/0.4 ML SYR SC SCH (09:00)
--- NOTE | 2018-01-03 09:51 | WOCRNPDOC ---
WOCRN Advanced Assessment Note - Skin Integrity Problem, Advanced Assess Nose Pressure Injury Dressing Type: Open to Air Wound Bed Color: Brown Wound Bed Constitution: Scab, Unstable Eschar Site Measurement - Head-to-Toe Length X Width X Depth (cm): 0.4x0.5x0.2 Pressure Injury Stage: Stage 3, Division Director Related Pressure Injury (Bipap) Pressure Injury Present on Admit: No Skin Integrity Problem Comment: Healing. Please keep covered and moist with wound gel. Wound care will sign off. Coccyx Dressing Type: Mepilex Border Dressing Description: Clean/Dry, Intact Integumentary Issue Intervention: Visualized Under Dressing [place]imbola Wound Tissue: Blanching, Erythema Wound Bed Constitution: Healed Pressure Injury Stage: Stage 2 Pressure Injury Present on Admit: No Bilateral Sacrum Pressure Injury Dressing Type: Mepilex Border Integumentary Issue Intervention: Visualized Under Dressing Wound Bed Constitution: Healed Skin Integrity Problem Comment: Skin has peeled off from area and callouses are coming off. No concerns. No pressure. Wound care will sign off.
[2018-01-03 10:31] VITALS: TEMP 98.6
--- NOTE | 2018-01-03 11:27 | HOSPPROG ---
Hospitalist Progress Note Assessment/Plan: #Acute sepsis: resolved. Due to Flu A and PNA #Acute metabolic encephalopathy: improved mental status mildly. Holding Precedex /Benzos. Reassess mental status. CTH was negative. NL TSH, B12. Evaluated by Neuro and unable to do MRI with agitation and source likely metabolic. #HCAP: MSSA, Klebs. Cefepime/Flagyl for 14 days #Acute hypoxic resp failure: due to PNA #Acute tachycardia: resolved #Hypokalemia: repleted #Hypotension: resolved #Thrombocytopenia: resolved. Due to acute illness #Significant hypernatremia: resolved #Hyperglycemia: required significant SSI. Increase glargine 45 units #Diet: tubes feeds #Diarrhea: related to TFs, negative C diff. Immodium scheduled #DVT ppx: Lovenox #Goals: had good conversation with ZAKI Jalloh. She has consistently said that he would not want to be in this state and would not want further procedures like PEG tube. She has chosen hospice care. Will d/w CM Stable to transfer to floor Time spent on visit: 45 min d/w Yeimi, coordinating with CM and with interdisciplinary team Subjective: no acute events. Not following commands Objective: Vital Signs Temp Pulse Resp BP Pulse Ox 37 C 67 20 99/51 L 95 01/03/18 10:00 01/03/18 10:00 01/03/18 10:00 01/03/18 10:00 01/03/18 10:00 Microbiology 01/02/18 14:50 - Final Sputum, Induced/Suctioned Laboratory Results 01/01/18 04:00 01/03/18 04:20 01/02/18 01/03/18 01/04/18 05:59 05:59 05:59 Intake Total 3972 Output Total 2650 Balance 1322 PT 16.9 SEC (12.0-15.0) H 12/24/17 14:00 INR 1.36 (0.83-1.16) H 12/24/17 14:00 - Physical Exam Constitutional: no apparent distress Eyes: PERRL Ears, Nose, Mouth, Throat: moist mucous membranes Cardiovascular: regular rate and rhythym Respiratory: no respiratory distress Gastrointestinal: normoactive bowel sounds, other (no pain/grimace with palpitations) Genitourinary: other (rectal tube) Skin: warm Musculoskeletal: other (hands on mits) Neurologic: other (eyes open. Not tracking, not following simple commands) Psychiatric: encephalopathic ICD10 Worksheet Patient Problems: Problems Problem Status Onset Atrial fibrillation Acute Hypothermia Acute Non-ketotic hyperosmolar coma Acute
[2018-01-03 12:10] VITALS: BP 91/56; PULSE 81; RESP 12; O2SAT 96
[2018-01-03] MEDS: OLANZapine 2.5 MG TAB TUBE PRN (14:12)
--- NOTE | 2018-01-03 14:32 | PDIAF ---
- Diagnosis Diagnosis: hyperglycemia Code Status: Do Not Resuscitate - Medication Management Discharge Medications: Medications to Continue on Transfer Famotidine [Pepcid 20 MG (*)] 20 mg TUBE HS tab 01/03/18 [Last Taken Unknown] Furosemide [Lasix Injection] 20 mg IVP DAILY vial 01/03/18 [Last Taken Unknown] Insulin Glargine [Lantus Syringe] 45 units SC DAILY unit 01/03/18 [Last Taken Unknown] Insulin Lispro [HumaLOG LISPRO] 0 unit SC Q4H #0 unit 01/03/18 [Last Taken Unknown] Ipratropium/Albuterol [Duoneb (*)] 3 ml IH Q6HRS PRN deyvial 01/03/18 [Last Taken Unknown] Metoprolol Tartrate [Lopressor 25 mg (*)] 50 mg TUBE BID tab 01/03/18 [Last Taken Unknown] OLANZapine [OLANZapine (*)] 5 mg TUBE HS tab 01/03/18 [Last Taken Unknown] Discharge Medications: Refer to the Discharge Home Medication list for PRN reason. - Orders Services needed: Registered Nurse, Speech Language Pathologist Isolation Type: None Diet Recommendation: other (NPO) Diet Texture: None Tube feeding: stop - Follow Up Care Current Providers and Referrals: Patient,NotPresent [Unknown] - As per Instructions
--- NOTE | 2018-01-03 15:30 | ASDISCHSUM ---
Discharge Information Plan Status:SNF Medically Cleared to Leave:01/03/2018 Discharge Date:01/03/2018 CM D/C Disposition:Assisted Facility ADT D/C Disposition:Assisted Facility Projected Discharge Date:01/03/2018 05:00 PM Transportation at D/C:ALS/BLS Discharge Delay Reason: Follow-Up Date:01/03/2018 05:00 PM Discharge Slot: Final Diagnosis:Acute sepsis, Flu A, PNA, Encephalopathy Placement Information Referral Type:*Mcc/SNF Referral ID:-[id number] Provider Name:[facility] Address 1:[address] Address 2: City:[place] Selection Factors: State:[place] Patient Contact Information Contact Name:NICOLETTE Relationship:Friend Address:[address] [facility] Work Phone: City:[place] Alternate Phone: [facility]/Zip Code:[place] [address] Email: Financial Information Financial Class:Medicare Primary Plan Desc:MEDICARE INPATIENT Primary Plan Number:[id number] Secondary Plan Desc:MED[place] Secondary Plan Number:[id number] Assessment Information [facility] CM Progress Note CM Note CM Note Notes: 82 yr old male found confused in his Independent Living apartment in [facility]. High blood sugars-greater than 1000, confused and agitated. [facility] looking for Advance Directives and contacts, so far none found. CM to follow. Date Signed: 12/20/2017 09:17 AM Electronically Signed By:Jeri Mclean LCSW [facility] CM Progress Note CM Note CM Note Notes: [facility] called back to say that she had given me the wrong # for a "Fertilizing Machine Operator" for the patient. This CM contacted Yeimi Oliva [phone] ; [phone] . Yeimi reports that patient has no living family and as far as she knew was his only living friend. She was happy to assist by being patient's Med Proxy. Yeimi lives in [facility]. This CM sent her a picture of the Med Proxy form and instructions, asked the DOORS PREFITTER to call her and gave her phone#'s to the Hacksaw Inspector to call as needed. Date Signed: 12/20/2017 04:06 PM Electronically Signed By:Jeri Mclean LCSW [facility] Progress Note Note CM Note Notes: Patient continues to be confused, labs unchanged, non verbal, at times contracted, restrained. Patient had [facility] assisting him at home. Patient has not been able to work with Therapies given his confusion. May need SNF on discharge. CM to follow. Date Signed: 12/21/2017 03:13 PM Electronically Signed By:Jeri Mclean LCSW [facility] Progress Note Note CM Note Notes: Spoke with Marylou at [facility] - patient is currently open with PT/OT/RN/HI LO DRIVER services. They will need orders to resume care. Patient remains very ill with electrolyte imbalances, increased respiratory needs, and a positive Influenza A test. He has not been out of bed. We will order therapies when appropriate. Date Signed: 12/22/2017 01:18 PM Electronically Signed By:Giuliana Flores RN [facility] CM Progress Note CM Note CM Note Notes: Patient is improving slowly. Increase tamiflu dose today for renal function. Patient's family has remained steadily at his bedside. D/C plan remains [facility] for PT/OT/RN/HI LO DRIVER. CM will follow. Date Signed: 12/23/2017 02:16 PM Electronically Signed By:Gardenia Blum LCSW [facility] CM Progress Note CM Note CM Note Notes: Unable to meet with patient as he is delirious and not answering questions, even though patient is clinically improved. Patient is a resident at [facility] and has had [facility] in the past. D/C needs remain TBD. CM will follow. Date Signed: 12/24/2017 01:20 PM Electronically Signed By:Gardenia Blum LCSW [facility] CM Progress Note CM Note CM Note Notes: Contacted [facility] and spoke w/Todd Velasco RN, who reported that patient had been under their care for the past 3yrs and Christie Rosario RN had been visiting him 1x/month during those years. They knew of his friend, Yeimi in [place]. Todd reports that Yeimi was his only friend and she didn't know of any family. Above RN's report that patient wouldn't want to be kept alive if he was confused and wouldn't have a meaningful life. Patient also had [employer] [phone] assisting him at home. Roseline, the company Director will contact this CM Wednesday to confirm patient's thoughts and feelings. Date Signed: 12/27/2017 04:06 PM Electronically Signed By:Jeri Mclean LCSW [facility] CM Progress Note CM Note CM Note Notes: A family meeting has been set up for tomorrow 12-30-2017 at 12:30 with patient's MDPOA, Yeimi. Yeimi will be on a telephone conference since she lives in [place], [place]. CM will follow. Date Signed: 12/29/2017 04:29 PM Electronically Signed By:Gardenia Blum LCSW [facility] CM Progress Note CM Note CM Note Notes: Consulted with Dr. Landers and Dr. Burrows regarding recommendations for going forward with patient's medical care. Dr. Burrows to make some medication changes to determine if their might be some improvement in patient's cognitive abilities. Comfort measures vs. more medical intervention is being considered. Family meeting was held with Yeimi, patient's MDPOA, Antonella Robles, Senior Credit Analyst, and myself. We informed Yeimi of Dr. Burrows making some medication changes to see if patient cognitively improves. Yeimi states patient would want quality of life and has only a few things left he enjoys. Patient enjoys reading, intellectual conversation and his home caregivers from [facility] who have been involved with the patient for the past 3 years. Currently, d/c plan may be hospice support or SNF placement. We will contact Yeimi on Wednesday to update and make decisions. Yeimi requested Dr. Burrows give her a call about the medication changes. This request was passed on to Dr. Burrows. CM will follow. Date Signed: 12/30/2017 02:06 PM Electronically Signed By:Gardenia Blum LCSW [facility] Progress Note CM Note CM Note Notes: Chart reviewed. Patient in hyperosmolar coma. No sedation through weekend to assess any increase in responsiveness, IESHA Jalloh lives in [facility]. If no improvement in cognition/function after weekend will revisit disposition and plan of care. CM to follow, Date Signed: 01/01/2018 03:39 PM Electronically Signed By:Fiordaliza Olmstead RN Case Management Discharge Plan Note Case Management Discharge Discharge Order Complete? Answers: Yes Patient to Obtain Answers: Other Notes: [facility] Medications Transportation Arranged Answers: [facility] will Pick (Date 01/03/2018 05:00 PM & Time) Case Management Transport Answers: Yes Form Complete Faxed Final Orders Answers: Yes Agency/Facility Transfer Answers: Yes Report Printed & Faxed to Receiving Agency Family Notified Answers: Yes Notes: Yeimi Oliva Discharge Comments Notes: Patient to discharge to [facility] they are admitting him under Medicare Comfort Care, to be followed by [facility]. Date Signed: 01/03/2018 03:29 PM Electronically Signed By:Jeri Mclean LCSW Intervention Information Intervention Type:IM-Pt. Not Available Date of Service:01/03/2018 02:39 PM Patient Type:Inpatient Staff Member:Rosangela Souza Hours: Discipline: Severity: Comment:Discussed patient with discharge alex moralez web content & social media managerAmanda. Patient is in hyperosmol ar coma and unable to communicate for Medicare form to be administered.
--- NOTE | 2018-01-03 15:46 | GDS ---
[f rep st] DISCHARGE SUMMARY DISCHARGE DIAGNOSES: 1. Acute encephalopathy, persistent. 2. Severe hyperglycemia. 3. Severe hypernatremia. 4. Healthcare-associated pneumonia. 5. Acute metabolic encephalopathy. 6. Acute hypoxic respiratory failure. 7. Acute tachycardia. 8. Hyperkalemia. 9. Hypotension. 10. Thrombocytopenia. 11. Influenza A. 12. Acute sepsis. HISTORY OF PRESENT ILLNESS: An 82-year-old male with no known past medical history who presented fro m his independent living apartment at [facility] after a welfare check was called. Apparently, he h ad not been seen in 24 hours and he was found in his apartment confused. There were no prescription bottles in his home. Initial labs showed a glucose of 1023 and a sodium of 163. He was transferred to the ICU for further care. HOSPITAL COURSE BY PROBLEM: 1. Acute metabolic encephalopathy secondary to severe hyperglycemia/hypernatremia. CT head was nega tive for acute stroke. He had normal reversible causes including TSH and B12. He was evaluated by N eurology, was unable to perform an MRI due to agitation and thought to be low yield given metabolic e tiology. He has had minimal improvements at this point. He is not following commands or talking. 2. Acute sepsis: This was secondary to influenza A pneumonia. This has since resolved. 3. Healthcare-associated pneumonia: Culture positive for MSSA and Klebsiella. Received cefepime an d Flagyl. 4. Influenza A, status post treatment. 5. Acute hypoxic respiratory failure secondary to pneumonia. This has improved. He received a full treatment course. 6. Acute tachycardia, resolved. 7. Hypokalemia, repleted. 8. Hypotension, resolved with IV fluids. 9. Thrombocytopenia secondary to acute illness. This has resolved. 10. Significant hypernatremia. This was corrected with no improvement in mental status. 11. Hyperglycemia. Will continue glargine 45 units and sliding scale insulin. 12. Diet. Was on tube feeds here but will discontinue these. 13. Diarrhea related to tube feeds and C difficile is negative. He has Imodium scheduled. 14. Goals. The patient does not have a family, but has a friend of 50 years, Yeimi, who lives in [facility], who is his MD IESHA. She has followed along during this process. I spoke with her today and has consistently said that he would not be in a state of mind where he cannot talk or read. He woul d not want to proceed with procedures like a PEG tube to prolong his life. At this point, given that he has had minimal to no improvement in his mental status, have chosen for palliative care. He will be transferred to [facility] and palliative care and then transitioned to hospice if needed. DISPOSITION: The patient is stable for discharge to [facility] with palliative care. MEDICATIONS: Continue glargine sliding scale insulin, Imodium. /[id number]/MODL
== END 2018-01-03 16:51 | DRG 871 ==
LOC: EDUNIT# → F2N 22:45
PROVIDERS: ADMIT Internal Medicine; ATTEND Internal Medicine
PROC: 02HV33Z Insertion of Infusion Device into Superior Vena Cava, Percutaneous Approach (ICD-10-PCS; principal; 2017-12-20)
DX: A41.89 Other specified sepsis (principal); R65.20 Severe sepsis without septic shock; J96.01 Acute respiratory failure with hypoxia; J10.00 Influenza due to other identified influenza virus with unspecified type of pneumonia; J18.9 Pneumonia, unspecified organism; B97.89 Other viral agents as the cause of diseases classified elsewhere; G93.41 Metabolic encephalopathy; E87.0 Hyperosmolality and hypernatremia; N17.9 Acute kidney failure, unspecified; L89.152 Pressure ulcer of sacral region, stage 2; E87.5 Hyperkalemia; E43 Unspecified severe protein-calorie malnutrition; E87.8 Other disorders of electrolyte and fluid balance, not elsewhere classified; E11.10 Type 2 diabetes mellitus with ketoacidosis without coma; B96.1 Klebsiella pneumoniae [K. pneumoniae] as the cause of diseases classified elsewhere; I48.91 Unspecified atrial fibrillation; I10 Essential (primary) hypertension; E87.2 Acidosis; R00.0 Tachycardia, unspecified; Z66 Do not resuscitate
CPT/HCPCS: 80305; 80307; 82607-90; 82947-QW; 86022-90; 96365; 96366; C1751; G0480; J0692; J1170; J1630; J1644; J1650; J1652; J1815; J1940; J2060; J2997; J3480; P9041; Q9967

== ENCOUNTER 2018-01-04 08:35 | Emergency (ER) | payer OTHER, MEDICAID ==
[2018-01-04] MEDS ORDERED: SUCCINYLCHOLINE CHLORIDE 200 MG/10 ML SYR IVP ONE (08:54)
--- NOTE | 2018-01-04 09:05 | EDPHY ---
H & P Time Seen by Provider: 01/04/18 08:49 - Medical/Surgical History Other PMH: unobtainable - Social History Smoking Status: Unknown if ever smoked Constitutional: Initial Vital Signs O2 Sat (%) 96 01/04/18 08:35 O2 (L/minute) 10 Allergies/Adverse Reactions: Unable to Assess Allergy (Verified 12/25/17 04:32) Home Medications: Medication Instructions Recorded Famotidine [Pepcid 20 MG (*)] 20 mg TUBE HS tab 01/03/18 Furosemide [Lasix Injection] 20 mg IVP DAILY vial 01/03/18 Insulin Glargine [Lantus Syringe] 45 units SC DAILY unit 01/03/18 Insulin Lispro [HumaLOG LISPRO] 0 unit SC Q4H #0 unit 01/03/18 Ipratropium/Albuterol [Duoneb (*)] 3 ml IH Q6HRS PRN deyvial 01/03/18 Loperamide HCl [Loperamide] 1 mg PO QID #30 liquid 01/03/18 Melatonin [Melatonin 3 MG (*)] 1.5 mg TUBE HS tab 01/03/18 Metoprolol Tartrate [Lopressor 25 50 mg TUBE BID tab 01/03/18 mg (*)] OLANZapine [OLANZapine (*)] 5 mg TUBE HS tab 01/03/18 Medical Decision Making ED Course/Re-evaluation: Patient arrived via EMS with complaint of epistaxis, AMS, and pulling out Hi catheter. Had not yet assessed patient when RN alerted me to immediate need for resuscitation. Minimal information available from EMS. No obvious DNR available in transfer paperwork from [facility]. 0835: Initiated CPR and transferred to trauma bay. Reviewing recent 3-week ICU admission (for severe sepsis, encephalopathy, pneumonia, DKA) to determine COR status. 0838: Pulse present, breathing spontaneously, unconscious. CPR stopped. Still searching for DNR paperwork. 0840: RSI performed. Blood noted in airway. 0846: Atropine administered for bradycardia. 0848: RN called [facility] and confirmed DNR status, which is also visible on patient's med sheet from facility. Confirmed via recent records from yesterday that patient's MDPOA [id number] does not want interventions and that patient was discharged to hospice care. Resuscitation efforts halted and ET tube pulled. Recent ICU admission records reviewed. Confirmed in multiple hospitalist and CM notes that patient's MDPOA, Yeimi in [place], "has consistently said that he would not want to be in this state and would not want further procedures [...]. She has chosen hospice care." - per progress note 01/03/18. Per CM note , "patient to discharge to [facility] they are admitting him under Medicare Comfort Care to be followed by [facility]." 0850: BP 48/28. 0900: Time of called. - Data Points Medications Given: Discontinued Medications Atropine Sulfate (Atropine 1 Mg/10 Ml Syringe) 1 mg IVP EDNOW ONE Stop: 01/04/18 09:46 Last Admin: 01/04/18 08:46 Dose: 1 mg Departure - Departure Disposition: Clinical Impression: Cardiac arrest Condition: Critical Referrals: Patient,NotPresent [Primary Care Provider] - As per Instructions Report Scribed for: Nigel Mueller Report Scribed by: Nisa Mendez Date of Report: 01/04/18 Time of Report: 09:11
[2018-01-04] MEDS ORDERED: ATROPINE SULFATE 1 MG/10 ML SYR ONE (09:45)
[2018-01-04] MEDS ORDERED: ATROPINE SULFATE 1 MG/10 ML SYR IVP ONE (09:45)
[2018-01-04 09:51] VITALS: O2SAT 96
[2018-01-04 09:54] VITALS: BP 48/28; PULSE 40
== END 2018-01-04 10:50 | disposition expired ==
LOC: EDUNIT#
DX: I46.9 Cardiac arrest, cause unspecified (principal); Z79.4 Long term (current) use of insulin
CPT/HCPCS: 36680; 92950; 96374; 99284; J0330; J0461